=== PATIENT | male | born 1970 | race Caucasian/White ===

== ENCOUNTER → 2022-08-03 13:25 | Outpatient (BNVA) | payer BC, SELFPAY | PROVIDERS: PCP Internal Medicine; Visit Provider Nurse Practitioner Family | DX: Z13.89 Encounter for screening for other disorder (principal) ==

== ENCOUNTER 2024-02-08 08:30 | Outpatient (RCR) | payer BC, SELFPAY ==
[2024-02-07 11:29] VITALS: BMI 27.1
[2024-02-07 11:30] VITALS: BP 125/92; PULSE 80; TEMP 37.2
--- NOTE | 2024-02-07 13:23 | PC.ADMIT ---
Patient is a 53 year old male who was referred to [facility] by his psychiatric prescriber d/t severe depression, anxiety, and OCD. Patient is ruminating and perserverating on different issues related to tinnitus and hearing loss to the point of experiencing Hyperacusis. Patient reports he has been experiencing tinnitus for many years and feels it has worsened since COVID. He talked about taking a Prilosec on Monday and his hearing loss worsened. Patient stated, I think about it how things were already bad and one dose of this stuff within 24 hours it wipes out your hearing. Now what ever hope I had is gone and I go home an lay down I cant sleep because the noise is so loud and from exhaustion I sleep 2-3 hours . Patient reports he has been researching on the internet medications and things that could be contributing to his hearing issues and tinnitus including the Prilosec he took on Monday. Irene started getting a burning pain in my ears went to the ENT and they did not know, teaching by the end of the day hurt. The pain is so bad I have to go on FMLA . Regarding Tinnitus patient stated, I have had it for 10 years until Covid it got worse and worse after the shots and when I had COVID. After being in the hospital since 2001 for a year and a half I was good until COVID I was on Zoloft and my hearing was stable. After I got COVID in 2022 I got more prednisone from my PCP it did seem to help a little bit. In July I used some power tools and went to urgent care because I was afraid it would get worse. I took it again and this time it did not work . In October I took it again within a week or 2 I developed severe Hyperacusis and burning pain in my ear. Trying to prevent losing my hearing . Patient is alert and oriented x4. He was cooperative however focused on his hearing and tinnitus most of the assessment. Frustrated that he is not getting any better. He presented with depressed mood with anxious irritable affect. He was restless at times and pacing at times during the assessment. Unsure if he will come back to the program as he does not seem to think this will help him. Patient stated, I feel like I need an emergency ENT appointment . He stated he is here because his is making him come as she thinks [facility] could help reduce his anxiety to help with his hearing issues as she feels his symptoms are psychiatric. I told Ledy that this is unlivable and I cant live like this . When asked if he was having any SI he stated, I've thought about suicide a lot . Reports passive thoughts like, I think ultimately it will be the end of this (regarding tinnitus and hearing loss) or tinnitus is so bad no one should live like this. Asked if he had any plans to kill himself he stated, I am a coward, I wouldn't know how to do it. He was given a copy of his safety plan if needed. He reports he is not having any difficulty hearing me during the assessment however his tinnitus increases at nighttime. Medications reconciled with patient and patient's pharmacy. He reports he has tried Olanzapine however he did not like it. Pharmacy stated Olanzapine is new and is ready for patient to p/u today.
--- NOTE | 2024-02-07 15:19 | HO.PHP ---
Bill was not able to engage in the 1:00 coping skills group, last group of the day. Pt paced in and out of the room for the entire duration despite prompts to sit or to try to at least timers inspector the room. Pt unable to comply. Pt would go from one group room to the next, bang on the other side of the wall at times. Police Artist had to interrupt group each time to check on pt, Bill stating he was fine each time. Police Artist met with Bill after group to assess his state, pt expressed feeling constant worry over his hearing it's all I can think about . Bill stated he was able to listen to part of the group while going in and out but felt his restless pacing and behavior was a distraction and feels it is limiting his ability to engage in the program. Pt felt unsure if he should continue at [facility], pt repeatedly reported feeling constant worry over his hearing, no reports of feeling unsafe, when asked pt stated it's just my hearing , denied any other distress, would not speak about any other symptoms. When asked about his restless, jumpy legs pt stated it was because he can not stop worrying about his hearing. Pt was unable to sit still to speak with technical publications writer had to get up and move because his legs began to shake vigorously. As pt was leaving for the day, pt was asked about plan to address his distress, pt informed technical publications writer he has an OP doctor. Pt was encouraged to reach out to his outpatient doctor bk if feeling increasingly distressed/anxious over his hearing, until he is able to meet with [facility] provider tomorrow. Pt agreed.
--- NOTE | 2024-02-08 15:02 | HO.PHP ---
Client's case has been opened and reviewed in team.
--- NOTE | 2024-02-08 15:37 | PC.NURSE ---
Patient carries a diagnosis of OCD, he ruminates and perseverates on different issues related to his hearing,he reports he experiences Hyperacusis, a rare disorder of loudness perception. He also reports Tinnitus. He reports experiencing burning pain in his ears which he states persists. The patient reports he has had many medical exams including MRI's with no significant findings. Patient is focused on his hearing and is obsessing about this to the point of having difficulty functioning and inability to work d/t symptoms. 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 He is on a medical leave of absence. Reportedly patient had similar presentation a few years ago and was subsequently hospitalized inpatient behavioral health unit at [facility]. Pt endorses suicidal ideation with thoughts of Can I live like this . Patient presents with irritable mood and affect. He started PHP yesterday. He was noted to be pacing and restless. Difficulty with following group materials as he is focused on his hearing. C/o sleeping 2-3 hours a night since last Monday since he took one Prilosec and was researching on the internet that this could be contributing to his current symptoms. He noticed hearing loss last Monday that he believes will never come back. He reports that he had no issues hearing this marketing writer when completing a nursing assessment yesterday and that it mostly happens at night. Does not believe lack of sleep could be contributing to some of his symptoms. Based on patient symptoms Dr. Moran section'd 12 A patient to [facility] for crisis evaluation. He was escorted to [facility] by [facility] staff Brandy and Hellen along with patient's . Nurse to Nurse done with Zay MILLIGAN in the POD and Care steam conditioner filling Stephanie was notified with above mentioned information. Also told Stephanie and Zay MILLIGAN to review section 12 A write up.
--- NOTE | 2024-02-08 23:49 | HO.PS.ADMBH ---
HPI Date of Service: 02/08/24 Chief Complaint: OCD,RAGHAV Sources of Information: patient interviewed, chart reviewed and crisis/core team assessment reviewed HPI Narrative: Patient is a 53 yo male who has been struggling with mental health issues, which he attributes to chronic ear problems including hearing loss, tinnitis, for which he has found no explanation or treatment despite extensive work-up by countless doctors, several ENTs, many of whom told him they could not find anything wrong with me . He experiences high levels of anxiety all the time on account of his ear problems and feeling hopeless and overwhelmed and suicidal. Was a limited historian on account of disorganized thoughts/behaviors. Agitation waxed and waned, pacing, irritable, perseverating on his ear problems and in particular was really preoccupied with the notion that he one tablet of Prilosec irrecoverably damaged his ear, claiming his cochlear cells and he has permanent hearing loss (although there was no indication during our conversation that he had impaired hearing). He states he is living in agony and that it is impossible for him to live like this anymore. He seemed unable to engage in any productive discussions on perspective or problem-solving. He continued obsess about the irony that this one pill he impulsively took last Monday would have such dire repercussions. My life is over... had I only known taking that Prilosec was going to be the difference between life and ... I chose wrong. I cant undo this . No future-orientation, no protective factors as he believes his family would be better off without him. In fact he has mentioned several times to his thoughts about taking his life and about euthanasia which he says disturbs her . He notes that euthanasia is legal in [place]. He says I dont feel like there's anything wrong with that. I should be able to choose not to live like this. They (doctors) are not me. They don't know how it is to live like this. I'm in agony. All the time. I cant do anything. I cant work. The damage I have done to my and kids... When asked if he has thoughts of harming himself, he says it wouldn't be any worse than how he is doing now, and expresses intense regret about taking the Prilosec. He endorses active SI and without specifying time frame, although indicating could be at any time, and does not report any particularly protective factors.. reporting suicidal thoughts and expresses wish to . He shares plan of by getting hit by train and indicates that he has been familiarizing himself with train schedule which passes by his neighborhood. Says it is more than one time of day the train runs by, I have figured that would be the best way to go, quick and easy . He would not share the times the train passes. Despite numerous times being asked if he had plans to act on this today, he would not respond to the question and kept lamenting that killing yourself and euthanasia is not allowed , arguing that it should be and citing reasons he should be allowed to do so. I used to think sticked around for my kids as a shell of a dad was enough. It isn't . He states he is only taking levothyroxine and sertraline. He stopped taking Zyprexa because it doesn't work and causes more problems with his ears. He felt perhaps the sertraline was starting to work but says because of taking the Prilosec last week I ruined it . He does not believe he is going to ever get better. Nothing is going to work now because the Prilosec killed all the acoustic cells in my ears. It's ototoxic he erratically scrolls through his phone reading random passages from studies he has found which he concludes that the damage is irreversible. My hairing loss is permanent. Nothing can fix this Past Psychiatric History: Multiple [facility] Medical History (Updated 02/08/24 @ 23:58 by Shea Molina MD) Urethral stricture History of concussion Clicking tinnitus of both ears Surgical History (Updated 02/07/24 @ 11:27 by Natalie Ventura RN) Hx of knee surgery Hx of inguinal hernia surgery Diagnostics Vital Signs (24Hr): BMI result Body Mass Index 27.1 Meds/Allergies Meds Home Medications ?Medication ?Instructions ?Recorded ?Confirmed ?Type levothyroxine 75 mcg tablet 75 mcg PO DAILY 02/08/24 02/08/24 History sertraline 25 mg tablet 25 mg PO QAM 02/08/24 02/08/24 History olanzapine 2.5 mg tablet 2.5 mg PO BEDTIME 02/09/24 History risperidone 0.25 mg tablet 0.25 mg PO BID 02/09/24 History Allergies Allergies Allergy/AdvReac Type Severity Reaction Status Date / Time grass pollen Allergy Unknown Unknown Verified 02/08/24 15:41 david Allergy Unknown Unknown Verified 02/08/24 15:41 Peanut Butter Allergy Unknown Unknown Verified 02/08/24 15:41 Seasonal Allergies Allergy Unknown Unknown Verified 02/08/24 15:41 almonds Allergy Unknown Unknown Uncoded 08/03/22 13:43 pineapples Allergy Unknown Unknown Uncoded 08/03/22 13:43 Mental Status Exam Mental Status Exam Narrative: Alert, oriented to self and situation. Agitation, excessive skin picking and gnawing at open wounds on his fingers. Eye contact variable. Mood anxious, depressed, affect anxious, irritable, dysphoric, without notable lability or tearfulness. Speech normal. Thought process was perseverative, at times illogical but coherent. Some thought blocking, likely from intense internal preoccupation focused on somatic concerns, and hyperfixated on a Prilosec tablet he took last Monday which he repeatedly stated he regretted, Feeling demoralized, helpless, and profoundly hopeless, expressing fatalistic outlook and wish to not exist due to ear problems, no future-orientation, expresses active SI, intention, with plan to jump in front of a train. Denies any aggressive ideation or thoughts of harming others. Overvalued ideation without gross paranoia or delusional content elicited. No evidence of psychosis. Insight and judgment - fair but adequate Assessment & Plan Assessment & Plan (1) MDD (major depressive disorder), recurrent episode: Status: Acute Qualifiers: Major depression episode severity: severe Code(s): F33.9 - Major depressive disorder, recurrent, unspecified Assessment and Plan: +/- thought disorder (2) Illness anxiety disorder: Status: Acute Code(s): 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 (3) Other obsessive-compulsive disorder: Status: Acute Code(s): F42.8 - Other obsessive-compulsive disorder (4) Disturbed cognition: Status: Acute Code(s): R41.89 - Other symptoms and signs involving cognitive functions and awareness Plan Patient is a difficult historian, disorganized, at times becomes agitated, pacing around room. He is highly perseverative, illogical and difficult to redirect in conversation. States his mood is in agony and says he is completely hopeless and refuses any prospects that he anything to live for. He explicitely expresses wish to , reports SI, urge, intention, plan to jump in front of a train and though he wouldnt provide details of when he might do this he also was unable/unwilling to contract for safety that he would not act on this today. He has made suicidal statements to family as well. Patient reluctantly agreed to go to ER for Crisis eval for possible IPLOC, section 12a signed and sent over to ED. Patient educated on: diagnosis and medication risk/benefits Informed Consent: does not understand Reason for continued partial hosp. stay Substantial Risk for: harm to self, inability to function, rapid decompensation, med/psych decompensation and other (Warranting higher level of care) Certification I certify that partial hospital treatment is medically necessary due to the symptoms and problems resulting from the patient's mental illness and the failure to treat the patient at the partial hospital level of care would likely result in the patient requiring inpatient psychiatric care which could not be prevented at a less intensive level of care. Time Spent With Patient Time: Total time managing care of this patient today __90__ minutes.
== END 2024-02-08 23:59 | disposition home or self-care (01) ==
LOC: HO.PHPA 08:30
PROVIDERS: Visit Provider Psychiatry & Neurology Psychiatry
DX: F33.9 Major depressive disorder, recurrent, unspecified (principal); F45.21 Hypochondriasis; F42.8 Other obsessive-compulsive disorder; R41.89 Other symptoms and signs involving cognitive functions and awareness
CPT/HCPCS: 90791; 90853

== ENCOUNTER → 2024-02-08 08:30 | Outpatient (BNV) | payer BC, SELFPAY | PROVIDERS: Visit Provider Psychiatry & Neurology Psychiatry | DX: F33.9 Major depressive disorder, recurrent, unspecified (principal); F45.21 Hypochondriasis; F42.8 Other obsessive-compulsive disorder; R41.89 Other symptoms and signs involving cognitive functions and awareness | CPT/HCPCS: 90792 ==

== ENCOUNTER 2024-02-08 15:29 | Inpatient (IN) | payer BC, SELFPAY ==
--- NOTE | 2024-02-08 | ECG_ITS ---
Test Reason : med clear Blood Pressure : / mmHG Vent. Rate : 074 BPM Atrial Rate : 074 BPM P-R Int : 138 ms QRS Dur : 082 ms QT Int : 382 ms P-R-T Axes : 038 006 048 degrees QTc Int : 424 ms Normal sinus rhythm Normal ECG No previous ECGs available Referred By: Sandro Downey Electronically Signed By:EMMA OLIVEIRA
[2024-02-08 15:36] VITALS: BP 144/100; PULSE 81; RESP 16; TEMP 36.6; O2SAT 100; BMI 26.6
--- NOTE | 2024-02-08 15:36 | ED_ITS ---
HPI - Psych General Chief Complaint: Psychiatric Symptoms Stated Complaint: Crisis Time Seen by Provider: 02/08/24 16:29 Source: patient Mode of arrival: ambulatory Limitations: no limitations History of Present Illness ED Provider: Vicky NORTON HPI Narrative: 53 yold male with pmh of tinnitus with history of obsessive compulsive disorder and some tinnitus presents to ED for suicidal ideation due to tendinitis. Patient states too much ringing in his ear he was still in his life. Patient has plans but would not state the plan. Patient is sent here by section 12 from [facility] for evaluation. Patient states no SI stating in the past Related Data Home Medications ?Medication ?Instructions ?Recorded ?Confirmed levothyroxine 75 mcg tablet 75 mcg PO DAILY 02/08/24 02/08/24 sertraline 25 mg tablet 25 mg PO QAM 02/08/24 02/08/24 Allergies Allergy/AdvReac Type Severity Reaction Status Date / Time grass pollen Allergy Unknown Unknown Verified 02/08/24 15:41 david Allergy Unknown Unknown Verified 02/08/24 15:41 Peanut Butter Allergy Unknown Unknown Verified 02/08/24 15:41 Seasonal Allergies Allergy Unknown Unknown Verified 02/08/24 15:41 almonds Allergy Unknown Unknown Uncoded 08/03/22 13:43 pineapples Allergy Unknown Unknown Uncoded 08/03/22 13:43 Review of Systems 2 Review of Systems: SI Yes all other systems are reviewed and are negative PMFSH Past Medical History Medical History (Updated 02/08/24 @ 23:58 by Shea Molina MD) Urethral stricture History of concussion Clicking tinnitus of both ears Surgical History (Updated 02/07/24 @ 11:27 by Natalie Ventura RN) Hx of knee surgery Hx of inguinal hernia surgery Social History Social History (Updated 08/03/22 @ 13:47 by Nohelia Mendez CMA) Household Members: Spouse and Children Alcohol intake: current Alcohol intake frequency: a few times a month Patient Tobacco Use Status: Never used Tobacco Advance Directives: No Advance Directives Information Provided: No Do you have a plan to hurt others: No Plan Physical Exam 2 Vital Signs: Vital Signs: Last Vital Signs Temp 98.7 F 02/09/24 06:00 Pulse 100 02/09/24 06:00 Resp 18 02/09/24 06:00 BP 152/98 H 02/09/24 06:00 Pulse Ox 99 02/09/24 06:00 O2 Del Method Room Air 02/09/24 06:00 BMI result Body Mass Index 26.6 Const: General: cooperative, healthy appearing, comfortable, no acute distress, well developed, alert and awake Orientation/consciousness: patient oriented x3 HEENT: Head: Yes normal to inspection, Yes No palpable skull fracture present, Yes normocephalic, Yes atraumatic and Yes abrasion Ears: hearing grossly normal bilaterally, external ears normal, TM's normal bilaterally, TM normal on the right, TM normal on the left, EAC's normal, mastoids normal and no periauricular adenopathy Throat: Yes posterior oropharynx normal, Yes tonsils normal and Yes uvula midline Eyes: General: appearance normal, both eyes and all related structures Neck: Neck: Yes normal visual inspection, Yes full ROM, Yes no lymphadenopathy, Yes no meningeal signs, Yes trachea midline, Yes supple, No anterior neck swelling and No tender Chest: Chest palpation & inspection: normal inspection of the chest and normal palpation of entire chest wall Resp: Effort & Inspection: normal respiratory effort and able to speak in complete sentences Auscultation: clear to auscultation bilaterally Cardio: Jugular venous distension: no JVD Heart sounds: S1 normal heart sound present and S2 normal heart sound present GI: Inspection: Yes normal to inspection Palpation (GI): Soft to palpation, not firm, nontender, no guarding and not rigid : General: No CVA tenderness and Yes no CVA tenderness Back/Spine/Pelvis: Back: no CVA tenderness, No CVA tenderness and No back tenderness Skin: General skin exam: no rashes or lesions noted, elasticity normal and turgor normal Neuro: General: patient oriented x3, gait normal, tone normal, moves all extremities, no meningeal signs, no focal motor deficits, CN's II-XI intact bilaterally and normal sensation to monofilament Extrem: General: Yes normal to inspection, Yes full ROM and Yes capillary refill normal Psych: Appearance: grossly normal, well kempt and not disheveled Course Course Course Narrative: This is a Rapid Medical Examination (RME) performed by Jing aMi PA-C in triage. Full HPI, ROS, assessment and treatment plan per primary provider in the Main ED. 53 yo male with history of OCD, anxiety, history of high frequency hearing loss and tinnitus chronically who presents to the ER from partial hospitalization program for a crisis evaluation. He reports an episode of worsening hearing loss and tinnitus after taking 1 priolsec over the weekend. Described as high pitch and involving both ears. Seen by ENT in the past. He states he can't live like this. If the hearing issues were not present he would not be suicidal or in crisis. Plan: medically clear then CARE team evaluation Reevaluation(s) Reevaluation #1: Physician observation continued. VS stable, no acute events overnight, inpatient bed search [place] 02/09/24 Medications Administered Generic Name Dose Route Start Last Admin Trade Name Freq PRN Reason Stop Dose Admin Levothyroxine Sodium 75 mcg 02/09/24 06:00 02/09/24 06:00 Levothyroxine Sodium 75 Mcg Tablet PO 75 mcg DAILY@0600 ROSY Administration Sertraline HCl 25 mg 02/08/24 20:45 02/08/24 21:58 Sertraline Hcl 25 Mg Tablet PO Not Given DAILY ROSY Medical Decision Making Medical Decision Making MDM Narrative: 53-year-old male with SI statements. Patient states suicide due to tinnitus. Patient has plan but will not specify. Labs ordered care team consult pending. 8:27pm; patient will be inpatient bed search as per care team loss control consultant. Bilateral ear exam normal Differential Diagnosis Differential Diagnoses: The differential diagnosis associated with the presentation includes (SI depression) Admission/Observation Consideration of admission/observation: Escalation of care including admission/observation considered Consult Healthcare Provider Management of the patient was discussed with: Sales Ambassador (Care team) Lab Data [facility] Lab Attestation statement: I reviewed the patient's lab results. 02/08/24 16:03 02/08/24 16:03 Labs: Lab Results 02/08/24 Range/Units 16:03 WBC 8.6 (4.8-10.8) X10*3/uL RBC 4.90 (4.60-5.80) X10*6/uL Hgb 15.9 (14.0-18.0) g/dl Hct 44.1 (42.0-52.0) % MCV 90.0 (80.0-98.0) fL MCH 32.4 (27.0-33.0) pg MCHC 36.1 H (31.0-36.0) g/dl RDW 11.6 (11.0-16.0) % Plt Count 335 (160-400) X10*3/uL MPV 10.1 (9.4-12.4) fL Immature Gran % (Auto) 0.1 (0.0-0.4) % Neut % (Auto) 70.5 (45-73) % Lymph % (Auto) 20.9 (20-40) % [place] % (Auto) 5.5 (2-11) % Eos % (Auto) 2.3 (0-4) % Baso % (Auto) 0.7 (0-2) % Lymph # (Auto) 1.8 (1.2-4.9) X10*3/uL [place] # (Auto) 0.5 (0.1-1.2) X10*3/uL Eos # (Auto) 0.2 (0.0-0.4) X10*3/uL Baso # (Auto) 0.1 (0.0-0.2) X10*3/uL Abs Immat Gran (auto) 0.01 (0.00-0.03) X10*3/uL Absolute Neuts (auto) 6.0 (2.0-8.3) x10*3/uL Absolute Nucleated RBC 0.000 (0.0-0.012) X10*3/uL Nucleated RBC % (auto) 0.0 (0.0-0.2) /100WBC Sodium 139 (135-145) mmol/L Potassium 4.2 (3.3-5.1) mmol/L Chloride 103 (96-108) mmol/L Carbon Dioxide 28 (22-29) mmol/L Anion Gap 12 (12-20) BUN 6 L (9-16) mg/dL Creatinine 0.89 (0.5-1.4) mg/dL Estim Creat Clear Calc 91.7 Estimated GFR > 60 Random Glucose 98 (60-115) mg/dL Calcium 9.9 (8.4-10.2) mg/dL Magnesium 2.2 (1.6-2.6) mg/dL Total Bilirubin 0.5 (0.0-1.0) mg/dL Direct Bilirubin 0.2 (0.0-0.5) mg/dL AST 33 (5-37) U/L ALT 39 (0-40) U/L Alkaline Phosphatase 118 H (39-117) U/L Total Protein 7.5 (6.5-8.0) g/dL Albumin 4.5 (3.5-5.0) g/dL TSH 2.91 (0.32-4.0) uIU/mL Urine Color Yellow Urine Appearance Clear Urine pH 7.5 (5.0-9.0) Ur Specific [place] <= 1.005 (1.005-1.025) Urine Protein Negative (Neg-Trace) mg/dL Urine Glucose (UA) Negative (Negative) mg/dL Urine Ketones Negative (Negative) mg/dL Urine Blood Negative (Negative) Urine Nitrite Negative (Negative) Ur Leukocyte Esterase Negative (Negative) Urine Opiates Screen Not Detected (Not Detect) Ur Buprenorphine Scrn Not Detected (Not Detect) ng/mL Ur Oxycodone Screen Not Detected (Not Detect) ng/mL Urine Methadone Screen Not Detected (Not Detect) ng/mL Urine Fentanyl Screen Not Detected (Not Detect) Ur Barbiturates Screen Not Detected (Not Detect) Ur Phencyclidine Scrn Not Detected (Not Detect) Ur Amphetamines Screen Not Detected (Not Detect) U Benzodiazepines Scrn Not Detected (Not Detect) Urine Cocaine Screen Not Detected (Not Detect) U Marijuana (THC) Screen Not Detected (Not Detect) Ethyl Alcohol < 10 mg/dL Independent Historian Clinical information obtained from an independent historian. History obtained from or confirmed by: EMS and Other (Patient) External Record Review External record reviewed: Other (Prior visits) Discharge Plan Discharge Clinical Impression: Depression Patient Disposition: Still a Patient Prescriptions: No Action levothyroxine 75 mcg tablet 75 mcg PO DAILY sertraline 25 mg tablet 25 mg PO QAM Interventions: Elkins-Suicide Risk Severity Scale Last Done: 02/08/24 16:20 Print Language: Puerto Rican
--- NOTE | 2024-02-08 16:08 | MHC.CARE ---
Shannan soriano/ BREEZY calls in expect for this patient, recently admitted to the [facility] PHP and struggling. This is a 53 year old white male, employed at [employer], currently on medical leave. He was referred to the PHP by her psychiatric provider due to depression/ OCD and is described with rumination, perseveration about his hearing. He is reported to be obsessed with his hearing and he has a dx of tinnitus and reports experiencing burning in his ear. 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 He has been irritable pacing and restless, only sleeping 2 hours a night or so since Monday. He makes SI statements, cannot live like this and inquired into euthanasia. Struggling to focus. Unable to tolerate groups in [facility], leaving the room.
[2024-02-08 16:13] LABS: MANUAL DIFF FLAG NO
[2024-02-08 16:16] LABS: Appearance Urine Clear; Color Urine Yellow; Glucose Urine UA Negative (Negative); Leukocyte Esterase Urine Negative (Negative); Nitrite Urine Negative (Negative); PH 7.5 (5.0-9.0); Specific Gravity - Urine <= 1.005 (1.005-1.025); Urine Blood Negative (Negative); Urine Ketones Negative (Negative); Urine Protein Negative (Neg-Trace)
[2024-02-08 16:18] LABS: Basophils Absolute Auto 0.1 X10*3/uL (0.0-0.2); Basophils Percent Auto 0.7 % (0-2); Eosinophils Absolute Auto 0.2 X10*3/uL (0.0-0.4); Eosinophils Percent Auto 2.3 % (0-4); Hematocrit 44.1 % (42.0-52.0); Hemoglobin 15.9 g/dl (14.0-18.0); Imm Gran Abs Auto 0.01 X10*3/uL (0.00-0.03); Imm Gran Pct Auto 0.1 % (0.0-0.4); Lymphocytes Absolute Auto 1.8 X10*3/uL (1.2-4.9); Lymphocytes Percent Auto 20.9 % (20-40); Mean Corpuscular HGB Conc 36.1 g/dl (31.0-36.0); Mean Corpuscular Hemoglobin 32.4 pg (27.0-33.0); Mean Platelet Volume 10.1 fL (9.4-12.4); Monocytes Absolute Auto 0.5 X10*3/uL (0.1-1.2); Monocytes Percent Auto 5.5 % (2-11); Neutrophils Percent Auto 70.5 % (45-73); Platelet Count 335 X10*3/uL (160-400); Red Cell Distribution Width 11.6 % (11.0-16.0); White Blood Count 8.6 X10*3/uL (4.8-10.8)
[2024-02-08 16:19] VITALS: BP 144/100; PULSE 81; RESP 16; TEMP 36.6; O2SAT 100
[2024-02-08 16:24] LABS: Amphetamine Screen Urine Not Detected (Not Detect); Barbiturates, Urine Not Detected (Not Detect); Benzodiazepines Screen Urine Not Detected (Not Detect); Buprenorphine Scr Not Detected (Not Detect); Cannabinoid Screen Urine Not Detected (Not Detect); Cocaine Screen Urine Not Detected (Not Detect); Fentanyl, urine Not Detected (Not Detect); Methadone Screen, Urine Not Detected (Not Detect); Opiate Screen Urine Not Detected (Not Detect); Oxycodone Screen Urine Not Detected (Not Detect); Phencyclidine Screen Urine Not Detected (Not Detect)
[2024-02-08 16:37] LABS: Alanine Aminotransferase 39 U/L (0-40); Albumin Level 4.5 g/dL (3.5-5.0); Alkaline Phosphatase 118 U/L (39-117); Anion Gap 12 (12-20); Aspartate Amino Transferase 33 U/L (5-37); Bilirubin Direct 0.2 mg/dL (0.0-0.5); Bilirubin Total 0.5 mg/dL (0.0-1.0); Blood Urea Nitrogen 6 mg/dL (9-16); Calcium 9.9 mg/dL (8.4-10.2); Carbon Dioxide 28 mmol/L (22-29); Chloride 103 mmol/L (96-108); Creatinine Clr Calc Pharmacy 91.7; Estimated Glomerular Filt Rate > 60; Ethanol < 10 mg/dL; Glucose Random 98 mg/dL (60-115); Magnesium 2.2 mg/dL (1.6-2.6); Potassium 4.2 mmol/L (3.3-5.1); Sodium 139 mmol/L (135-145); Total Protein 7.5 g/dL (6.5-8.0)
[2024-02-08 16:48] LABS: TSH reflex Free T4 2.91 uIU/mL (0.32-4.0)
--- NOTE | 2024-02-08 19:29 | PC.NURSE ---
patient appears to remain at rest present at bedside. appears in no distress presently.
--- NOTE | 2024-02-08 23:12 | MHC.CARE ---
Pt was evaluated by the CARE Team and is an inpatient adult bedsearch. Pt is on a section 12A for safety. Pt gave verbal permission to notify his when he has secured a bed.
--- NOTE | 2024-02-09 03:10 | PC.NURSE ---
this rn assumed care of pt, pt ambulatory to bathroom with steady gait, no acute distress noted. plan of care continues.
[2024-02-09 06:00] VITALS: BP 152/98; PULSE 100; RESP 18; TEMP 37.1; O2SAT 99
[2024-02-09] MEDS: Levothyroxine Sodium 75 MCG TABLET PO (06:00)
--- NOTE | 2024-02-09 06:02 | PC.NURSE ---
pt medicated per jun, tolerated well with water, provider aware of bp.
--- NOTE | 2024-02-09 07:02 | PC.NURSE ---
Assumed care of patient at 0645, patient appears to be sleeping, respirations even and unlabored. Continue plan of care for inpatient bedsearch
[2024-02-09] MEDS: Sertraline HCL 25 MG TABLET PO (08:03)
--- NOTE | 2024-02-09 09:14 | PHA.MEDREC ---
Addendum entered by Lindy De Leon RPh 02/09/24 09:21: Reviewed by [facility] Original Note: Pharmacy Consult ? Medication Reconciliation Pharmacy has reviewed the medication reconciliation. Spoke to patients Ledy to confirm med list. states patient is only taking Sertraline 25 mg daily, last dose was 02/08/24 and Levothyroxine 75 mcg daily last dose unknown thinks patient hasn't been taking. stated Patient stopped taking Olanzapine 2.5 mg and Risperidone 0.25 mg.
[2024-02-09] MEDS: LORazepam 1 MG TABLET PO (10:59)
[2024-02-09 13:30] VITALS: BMI 26.8
--- NOTE | 2024-02-09 14:57 | P.HPPS_ITS ---
HPI Date of Service: 02/09/24 Chief Complaint: SI HPI Narrative: per CARE team srinivasal, pt was walked over from [facility] due to SI, hopelessness, depression due to tinnitus. OCD Dx, historically. pt had been in [facility] from 02/05 being referred by outpt psych MD for inadequately managed depression, anxiety, OCD Sx. c/o tinnitus, hyperacusis (noxacusis). pt reportedly stopped taking zoloft in 2021. per collateral from pt's , when pt was taking the medication he was able to manage his symptoms and was more engaged with life. c/o sleeping only 2-3 hours per night since 02/02/2024, when he experienced a sharp exacerbation in tinnitus Sx (which he attributes to having taken one prilosec dose). on interview with MD, pt reports long h/o OCD, more recently with hearing loss (per his report, unclear if he has had this established via audiology) and even more recently with c/o tinnitus. states mid 2021 he stopped taking the zoloft he had been on for years because he was feeling better. in the period 2021 through october 2023, he reports seeking out prednisone courses in the belief they will address his tinnitus. he states, trying to help my hearing with steroids, but i'm delusional, i end up hurting myself. he describes himself as an abuser of steroids, and despite feeling it has largely been counter-productive for him, yet he feels compelled to keep seeking them out. reports his outpt psych MD recently prescribed him zyprexa and risperidone, which he states he had bad experiences with. he believes zyprexa caused him orthostatic hypotension, while risperidone briefly exacerbated his tinnitus. pt c/o having a very difficult time sleeping due to tinnitus. MD suggests trial of seroquel 200-300 mg at HS for perseverative and overvalued thoughts as well as insomnia; pt is skeptical. MD also agrees to add ativan 2 mg at HS to help with sleep. discussion also had re increasing zoloft back over 100 mg daily, where he had successfully been for years, versus initiating a trial of clomipramine. pt agreed to increase zoloft to 50 mg daily. generally, pt is bound by his anxiety that these various medications will worsen his hearing loss or tinnitus and so is extremely reluctant to take them. he is already stating he plans to kill himself otherwise. he is not entirely open to the logic that he then has nothing to lose: if he is going to kill himself due to his current condition, even if he takes medications and it makes his condition worse, he was going to kill himself when he was feeling better than that anyway, so why wouldn't he give them a try? ECT was also raised as an option. Past Psychiatric History: hosps: reports one prior, [facility] in 2021, after accidental steroid overdose SA: denies SIB: denies HIB: denies outpt: OCD. sees prescriber via telehealth. also has telehealth therapy 1-2x weekly. h/o zoloft up to 175 mg daily at one point, but over 100 mg daily for years. 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 . lives with , son (13), and daughter (18) in [place], [place]. on medical leave from his work. Substance History: tobacco - none alcohol - none since october identifies himself as a prednisone abuser. reports that between october 2021 and december 2023 he sought out high dose prednisone therapy on 8 separate occasions. denies other substance use. Trauma History: denies Diagnostics Vital Signs (24Hr): Vital Signs - 24 hr 02/08/24 15:36 02/08/24 16:19 02/09/24 06:00 Temperature 97.8 F 97.8 F 98.7 F Pulse Rate 81 81 100 Respiratory Rate 16 16 18 Blood Pressure 144/100 H 144/100 H 152/98 H Pulse Oximetry 100 100 99 Oxygen Delivery Method Room Air Room Air Room Air BMI result Body Mass Index 26.6 Labs 02/08/24 16:03 02/08/24 16:03 Labs: Laboratory Results - last 48 hr 02/08/24 16:03 WBC 8.6 RBC 4.90 Hgb 15.9 Hct 44.1 MCV 90.0 MCH 32.4 MCHC 36.1 H RDW 11.6 Plt Count 335 MPV 10.1 Immature Gran % (Auto) 0.1 Neut % (Auto) 70.5 Lymph % (Auto) 20.9 [place] % (Auto) 5.5 Eos % (Auto) 2.3 Baso % (Auto) 0.7 Lymph # (Auto) 1.8 [place] # (Auto) 0.5 Eos # (Auto) 0.2 Baso # (Auto) 0.1 Abs Immat Gran (auto) 0.01 Absolute Neuts (auto) 6.0 Absolute Nucleated RBC 0.000 Nucleated RBC % (auto) 0.0 Sodium 139 Potassium 4.2 Chloride 103 Carbon Dioxide 28 Anion Gap 12 BUN 6 L Creatinine 0.89 Estim Creat Clear Calc 91.7 Estimated GFR > 60 Random Glucose 98 Calcium 9.9 Magnesium 2.2 Total Bilirubin 0.5 Direct Bilirubin 0.2 AST 33 ALT 39 Alkaline Phosphatase 118 H Total Protein 7.5 Albumin 4.5 TSH 2.91 Urine Color Yellow Urine Appearance Clear Urine pH 7.5 Ur Specific [place] <= 1.005 Urine Protein Negative Urine Glucose (UA) Negative Urine Ketones Negative Urine Blood Negative Urine Nitrite Negative Ur Leukocyte Esterase Negative Urine Opiates Screen Not Detected Ur Buprenorphine Scrn Not Detected Ur Oxycodone Screen Not Detected Urine Methadone Screen Not Detected Urine Fentanyl Screen Not Detected Ur Barbiturates Screen Not Detected Ur Phencyclidine Scrn Not Detected Ur Amphetamines Screen Not Detected U Benzodiazepines Scrn Not Detected Urine Cocaine Screen Not Detected U Marijuana (THC) Screen Not Detected Ethyl Alcohol < 10 Meds/Allergies Meds Home Medications ?Medication ?Instructions ?Recorded ?Confirmed ?Type levothyroxine 75 mcg tablet 75 mcg PO DAILY@0600 02/08/24 02/09/24 History sertraline 25 mg tablet 25 mg PO DAILY 02/08/24 02/09/24 History Allergies Allergies Allergy/AdvReac Type Severity Reaction Status Date / Time grass pollen Allergy Unknown Unknown Verified 02/08/24 15:41 david Allergy Unknown Unknown Verified 02/08/24 15:41 Peanut Butter Allergy Unknown Unknown Verified 02/08/24 15:41 Seasonal Allergies Allergy Unknown Unknown Verified 02/08/24 15:41 almonds Allergy Unknown Unknown Uncoded 08/03/22 13:43 pineapples Allergy Unknown Unknown Uncoded 08/03/22 13:43 Mental Status Exam Mental Status Exam Narrative: adequately dressed and groomed. cooperative. no PMA/PMR. speech nml amount, rate, loudness. periods of increased HELENA. thoughts linear and variably logical. overvalued ideas bordering on delusional. affect constricted, hyper- intense, non-labile. mood defeated. +SI. no HI/AVH. Assessment & Plan Assessment & Plan (1) OCD (obsessive compulsive disorder): Status: Acute Code(s): F42.9 - Obsessive-compulsive disorder, unspecified (2) Tinnitus: Status: Acute Code(s): H93.19 - Tinnitus, unspecified ear (3) MDD (major depressive disorder), recurrent episode: Status: Acute Qualifiers: Major depression episode severity: severe Code(s): F33.9 - Major depressive disorder, recurrent, unspecified Plan offer seroquel 200 mg QHS for sleep/overvalued ideas, with an additional 100 mg available PRN. offer ativan 2 mg QHS for sleep. increase zoloft to 50 mg daily. otherwise DC zoloft and initiate clomipramine trial. neuro consult for opinion re type, mgmt of tinnitus. Patient educated on: diagnosis, medication risk/benefits, substance abuse and ECT Reason for continued inpatient stay Substantial Risk for: harm to self Statement Statement: I have reviewed the history and physical and performed a pertinent examination on my patient. No changes have occurred unless specified. If the History and Physical was not performed prior to admission, the Hospitalist's service will be consulted for completing the admission physical. Time Spent With Patient Time: Total time managing care of this patient today __90__ minutes.
--- NOTE | 2024-02-09 18:26 | PC.ADMIT ---
Bill is a 53 y/o male that was admitted to [facility] at 1321 from Pod on Legal status for treatment of MDD, RAGHAV and OCD. Pt has tinnitus in both ears and hyperacusis. Pt presented to the ED after being section 12 by [facility] r/t SI, hopelessness, and decrease in mood. Pt reported ?I don't want to live anymore. I have lived 52 good years. I have seen my kids grow into teenagers and I feel like that is enough for me. I don?t think I will get better, I can?t live with this in my head constantly, it's unbearable. I ready to . There are people with chronic illness who are able to use medical euthanasia I don?t get why I can?t?.? Pt has ongoing SI and hopelessness that has increased in the last week with no actual plan or intent. Per in 2021 pt overdosed on prednisone.? Pt is A&O x3. Mood is depressed and hopeless. Affect is depressed. Pt was irritable and defensive at times. Pt denied hx of trauma.? Pt reported a 20lb weight loss in the last month. Pt has reported poor sleep r/t the constant noise from the tinnitus, reported 2-3 hours a night for the last week.. Pt has poor focus and concentration. Pt uses contacts. Pt is and lives with a partner and two children. 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 Pt has an hx of a concussion in March 2022. Pt has a hx of inguinal hernia and R knee surgery, urethral stricture. Tox Screen was negative. Pt denied any substance use. Pt denied tobacco use. Pt has an allergy to grass pollen, david, peanut butter, pineapples, almonds and seasonal allergies. Pt was compliant with skin check. Pt was placed on 15 checks for safety.
[2024-02-09 18:44] VITALS: BP 130/89; PULSE 95; RESP 16; TEMP 36.6; O2SAT 96
[2024-02-09 20:00] VITALS: BP 130/84; PULSE 90; RESP 14; TEMP 36.6
[2024-02-09] MEDS: LORazepam 1 MG TABLET 2 MG PO (20:42)
[2024-02-10] MEDS: Levothyroxine Sodium 75 MCG TABLET PO (06:31)
[2024-02-10 08:04] VITALS: BP 129/72; PULSE 71; RESP 16; TEMP 36.8; O2SAT 97
[2024-02-10 08:39] LABS: Estimated Average Glucose 105 mg/dL; Hemoglobin A1C 133.8481 umol/L; Hemoglobin A1c % 5.3 % (<6.0); Total Hemoglobin (HGBA1C) 3858.8193 umol/L
--- NOTE | 2024-02-10 08:52 | HO.PSYCHPN ---
Subjective Subjective Date of Service: 02/10/24 Reason For Visit: SI Subjective Notes: Conditional Voluntary Interim History: Pt seen, reviewed with team who report pt is accepting medicines, but with hesitation and some evidence of paranoia. He is focused on SE. Team reports pt slept eight hours after taking Ativan. Pt awake and in bed when seen. He presents with depressed mood, flat affect, mild irritability and perseverative sx. He declines to discuss current sx or concerns, stating I guess I am just stuck here . Encouraged attempts to engage in milieu. Medication Compliance: Yes Side effects from medications: No Review of Systems Acute medical concerns: No Review of Systems Review of Systems Yes Unobtainable due to mental status Mental Status Exam Mental Status Exam Patient Appearance: Fatigued Patient Orientation: Person, Place, Time and Situation Level of Consciousness: Alert Patient Behavior: Guarded and Talkative Mood Description: Depressed Affect Description: Flat Patient Cognition Impaired: No Ability to Follow Directions: Good Speech Pattern: Spontaneous Speech and Soft-Spoken Hallucinations: None Delusions: Paranoid Ideation (team is seeing this when medicines are presented) Thought Process: Distracted and Rumination Thought Content: positive for Perseveration and positive for Suicidal Ideation Depressive Symptoms: Increased Irritability and Hopelessness Judgement: Poor Diagnostics Vital Signs (24Hr): Vital Signs - 24 hr 02/09/24 18:44 02/09/24 20:00 02/10/24 08:04 Temperature 97.8 F 97.8 F 98.2 F Pulse Rate 95 90 71 Respiratory Rate 16 14 16 Blood Pressure 130/89 130/84 129/72 Pulse Oximetry 96 97 Oxygen Delivery Method Room Air Room Air Room Air BMI result Body Mass Index 26.8 Labs 02/08/24 16:03 02/08/24 16:03 Labs: Laboratory Results - last 48 hr 02/08/24 02/10/24 16:03 07:56 WBC 8.6 RBC 4.90 Hgb 15.9 Hct 44.1 MCV 90.0 MCH 32.4 MCHC 36.1 H RDW 11.6 Plt Count 335 MPV 10.1 Immature Gran % (Auto) 0.1 Neut % (Auto) 70.5 Lymph % (Auto) 20.9 [place] % (Auto) 5.5 Eos % (Auto) 2.3 Baso % (Auto) 0.7 Lymph # (Auto) 1.8 [place] # (Auto) 0.5 Eos # (Auto) 0.2 Baso # (Auto) 0.1 Abs Immat Gran (auto) 0.01 Absolute Neuts (auto) 6.0 Absolute Nucleated RBC 0.000 Nucleated RBC % (auto) 0.0 Sodium 139 Potassium 4.2 Chloride 103 Carbon Dioxide 28 Anion Gap 12 BUN 6 L Creatinine 0.89 Estim Creat Clear Calc 91.7 Estimated GFR > 60 Random Glucose 98 Estimat Average Glucose 105 Hemoglobin A1c % 5.3 Calcium 9.9 Magnesium 2.2 Total Bilirubin 0.5 Direct Bilirubin 0.2 AST 33 ALT 39 Alkaline Phosphatase 118 H Total Protein 7.5 Albumin 4.5 TSH 2.91 Urine Color Yellow Urine Appearance Clear Urine pH 7.5 Ur Specific [place] <= 1.005 Urine Protein Negative Urine Glucose (UA) Negative Urine Ketones Negative Urine Blood Negative Urine Nitrite Negative Ur Leukocyte Esterase Negative Urine Opiates Screen Not Detected Ur Buprenorphine Scrn Not Detected Ur Oxycodone Screen Not Detected Urine Methadone Screen Not Detected Urine Fentanyl Screen Not Detected Ur Barbiturates Screen Not Detected Ur Phencyclidine Scrn Not Detected Ur Amphetamines Screen Not Detected U Benzodiazepines Scrn Not Detected Urine Cocaine Screen Not Detected U Marijuana (THC) Screen Not Detected Ethyl Alcohol < 10 Medications Medications Current Medications Acetaminophen (Acetaminophen 325 Mg Tablet) 650 mg PO Q6H PRN PRN Reason: Headache/Pain Mild Scale (1-3) Al Hydroxide/Mg Hydroxide (Magnesium Hydrox/Alum Hydrox 30 Ml Oral.Susp) 30 ml PO Q6H PRN PRN Reason: Heartburn/Nausea Hydroxyzine HCl (Hydroxyzine Hcl 25 Mg Tablet) 25 mg PO Q6H PRN PRN Reason: Anxiety Levothyroxine Sodium (Levothyroxine Sodium 75 Mcg Tablet) 75 mcg PO DAILY@0600 [facility] Last Admin: 02/10/24 06:31 Dose: 75 mcg Lorazepam (Lorazepam 1 Mg Tablet) 2 mg PO BEDTIME [facility] Last Admin: 02/09/24 20:42 Dose: 2 mg Lorazepam (Lorazepam 0.5 Mg Tablet) 0.5 mg PO Q4H PRN PRN Reason: Anxiety Magnesium Hydroxide (Milk Of Magnesia 30 Ml Oral.Susp) 30 ml PO DAILY PRN PRN Reason: Constipation Quetiapine Fumarate (Quetiapine Fumarate 200 Mg Tablet) 200 mg PO BEDTIME [facility] Last Admin: 02/09/24 21:40 Dose: Not Given Quetiapine Fumarate (Quetiapine Fumarate 100 Mg Tablet) 100 mg PO BEDTIME PRN PRN Reason: insomnia Sertraline HCl (Sertraline Hcl 50 Mg Tablet) 50 mg PO DAILY [facility] Trazodone HCl (Trazodone Hcl 50 Mg Tablet) 50 mg PO BEDTIME MRX1 PRN PRN Reason: Insomnia Allergies Allergies Allergy/AdvReac Type Severity Reaction Status Date / Time grass pollen Allergy Unknown Unknown Verified 02/08/24 15:41 david Allergy Unknown Unknown Verified 02/08/24 15:41 Peanut Butter Allergy Unknown Unknown Verified 02/08/24 15:41 Seasonal Allergies Allergy Unknown Unknown Verified 02/08/24 15:41 almonds Allergy Unknown Unknown Uncoded 08/03/22 13:43 pineapples Allergy Unknown Unknown Uncoded 08/03/22 13:43 Assessment & Plan Assessment & Plan (1) OCD (obsessive compulsive disorder): Status: Acute Code(s): F42.9 - Obsessive-compulsive disorder, unspecified (2) Tinnitus: Status: Acute Code(s): H93.19 - Tinnitus, unspecified ear (3) MDD (major depressive disorder), recurrent episode: Qualifiers: Major depression episode severity: severe Status: Acute Code(s): F33.9 - Major depressive disorder, recurrent, unspecified Plan offer seroquel 200 mg QHS for sleep/overvalued ideas, with an additional 100 mg available PRN. offer ativan 2 mg QHS for sleep. increase zoloft to 50 mg daily. otherwise DC zoloft and initiate clomipramine trial. neuro consult for opinion re type, mgmt of tinnitus. 02/10/24: Continue tx plan Reason for continued inpatient stay Substantial Risk for: rapid decompensation Time Spent With Patient Time: Total time managing care of this patient today ____ minutes.
[2024-02-10 08:53] LABS: Cholesterol 191 mg/dL (<200); HDL Cholesterol 41 mg/dL (>40); LDL Cholesterol Calculated 133 mg/dL (<100); Triglycerides 89 mg/dL (<150)
[2024-02-10 09:05] LABS: Free T4 (Free Thyroxine) 1.09 ng/dL (0.71-1.85)
[2024-02-10] MEDS: Sertraline HCL 50 MG TABLET PO (09:06)
[2024-02-10 09:17] LABS: Folate 14.1 ng/mL (> or = 4.0); Vitamin B12 640 pg/mL (200-900)
[2024-02-10 20:10] VITALS: BP 136/93; PULSE 70; RESP 16; TEMP 36.6; O2SAT 98
[2024-02-10] MEDS: LORazepam 1 MG TABLET 2 MG PO (21:20)
[2024-02-11] MEDS: Levothyroxine Sodium 75 MCG TABLET PO (07:15)
[2024-02-11 08:18] VITALS: BP 127/87; PULSE 69; RESP 16; TEMP 36.7; O2SAT 98
[2024-02-11] MEDS: Sertraline HCL 50 MG TABLET PO (09:06)
--- NOTE | 2024-02-11 09:10 | HO.PSYCHPN ---
Subjective Subjective Date of Service: 02/11/24 Reason For Visit: SI Subjective Notes: Conditional Voluntary Interim History: Met with pt, reviewed with team. Refused Seroquel. Slept for nine hours. Reports after he shows tw pictures of his daughter who just went to college, his son, his and dog that he feels he is better off , I want to jump . Believes that by taking a prilosec he has lost his hearing. Seen by neurology, they told me I need ENT . Please promise me you will get me to an ENT . Discussed that Dr. Salcedo will consult with neurology and present the next intervention for pt and his job is to accept treatment. Reports tinnitus, able to have an ongoing discussion with tw without reported or notable difficulty in hearing. Presents with hopelessness and helplessness. Encouraged to follow his plan of care, take medications as directed, work with team and milieu. Pt hugged tw precipitously at the end of our meeting stating he needed to hug to feel real. Medication Compliance: Intermittent Side effects from medications: No Attending Groups: No Review of Systems Medical Review of Systems: unchanged Review of Systems Review of Systems tinnitus reported loss of hearing Mental Status Exam Mental Status Exam Patient Appearance: Fatigued and Appropriate Patient Orientation: Person, Place, Time and Situation Level of Consciousness: Restless and Alert Patient Behavior: Talkative, Restless, Anxious, Fearful, Resistive to Care, Fatigued, Distractible, Good Eye Contact and Crying Mood Description: Depressed, Fearful and Anxious Affect Description: Flat Patient Cognition Impaired: Yes Ability to Follow Directions: Fair Speech Pattern: Spontaneous Speech Memory Description: Episodic Impaired Hallucinations: None (denies) Delusions: Paranoid Ideation and Present Thought Process: Rumination Thought Content: positive for Obsessional Thoughts, positive for Circumstantial, positive for Perseveration, positive for Preoccupation, positive for Hypochondriasis (??) and positive for Suicidal Ideation Depressive Symptoms: Increased Anxiety, Increased Irritability, Crying Spells, Loss of Int. in Activity, Feelings of Worthlessness, Feelings of Guilt, Unhappiness, Increased Fatigue, Thoughts of /Suicide, Low Self Esteem, Loss of Energy and Difficulty Concentrating Abnormal Motor Activity Signs and Symptoms: Restlessness Judgement: Poor Diagnostics Vital Signs (24Hr): Vital Signs - 24 hr 02/10/24 20:10 02/11/24 08:18 Temperature 97.8 F 98.0 F Pulse Rate 70 69 Respiratory Rate 16 16 Blood Pressure 136/93 H 127/87 Pulse Oximetry 98 98 Oxygen Delivery Method Room Air Room Air BMI result Body Mass Index 26.8 Labs 02/08/24 16:03 02/08/24 16:03 Labs: Laboratory Results - last 48 hr 02/10/24 02/10/24 07:55 07:56 Estimat Average Glucose 105 Hemoglobin A1c % 5.3 Triglycerides 89 Cholesterol 191 LDL Cholesterol, Calc 133 H HDL Cholesterol 41 Vitamin B12 640 Folate 14.1 TSH 3.10 Free T4 1.09 Medications Medications Current Medications Acetaminophen (Acetaminophen 325 Mg Tablet) 650 mg PO Q6H PRN PRN Reason: Headache/Pain Mild Scale (1-3) Al Hydroxide/Mg Hydroxide (Magnesium Hydrox/Alum Hydrox 30 Ml Oral.Susp) 30 ml PO Q6H PRN PRN Reason: Heartburn/Nausea Hydroxyzine HCl (Hydroxyzine Hcl 25 Mg Tablet) 25 mg PO Q6H PRN PRN Reason: Anxiety Levothyroxine Sodium (Levothyroxine Sodium 75 Mcg Tablet) 75 mcg PO DAILY@0600 [facility] Last Admin: 02/11/24 07:15 Dose: 75 mcg Lorazepam (Lorazepam 1 Mg Tablet) 2 mg PO BEDTIME [facility] Last Admin: 02/10/24 21:20 Dose: 2 mg Lorazepam (Lorazepam 0.5 Mg Tablet) 0.5 mg PO Q4H PRN PRN Reason: Anxiety Magnesium Hydroxide (Milk Of Magnesia 30 Ml Oral.Susp) 30 ml PO DAILY PRN PRN Reason: Constipation Quetiapine Fumarate (Quetiapine Fumarate 200 Mg Tablet) 200 mg PO BEDTIME [facility] Last Admin: 02/10/24 21:26 Dose: Not Given Quetiapine Fumarate (Quetiapine Fumarate 100 Mg Tablet) 100 mg PO BEDTIME PRN PRN Reason: insomnia Sertraline HCl (Sertraline Hcl 50 Mg Tablet) 50 mg PO DAILY [facility] Last Admin: 02/11/24 09:06 Dose: 50 mg Trazodone HCl (Trazodone Hcl 50 Mg Tablet) 50 mg PO BEDTIME MRX1 PRN PRN Reason: Insomnia Allergies Allergies Allergy/AdvReac Type Severity Reaction Status Date / Time grass pollen Allergy Unknown Unknown Verified 02/08/24 15:41 david Allergy Unknown Unknown Verified 02/08/24 15:41 Peanut Butter Allergy Unknown Unknown Verified 02/08/24 15:41 Seasonal Allergies Allergy Unknown Unknown Verified 02/08/24 15:41 almonds Allergy Unknown Unknown Uncoded 08/03/22 13:43 pineapples Allergy Unknown Unknown Uncoded 08/03/22 13:43 Assessment & Plan Assessment & Plan (1) OCD (obsessive compulsive disorder): Status: Acute Code(s): F42.9 - Obsessive-compulsive disorder, unspecified (2) Tinnitus: Status: Acute Code(s): H93.19 - Tinnitus, unspecified ear (3) MDD (major depressive disorder), recurrent episode: Qualifiers: Major depression episode severity: severe Status: Acute Code(s): F33.9 - Major depressive disorder, recurrent, unspecified Plan offer seroquel 200 mg QHS for sleep/overvalued ideas, with an additional 100 mg available PRN. offer ativan 2 mg QHS for sleep. increase zoloft to 50 mg daily. otherwise DC zoloft and initiate clomipramine trial. neuro consult for opinion re type, mgmt of tinnitus. 02/10/24: Continue tx plan 02/11/24: Encourage treatment participation and compliance Reason for continued inpatient stay Substantial Risk for: rapid decompensation and med/psych decompensation Time Spent With Patient Time: Total time managing care of this patient today ____ minutes.
--- NOTE | 2024-02-11 10:26 | P.CNNE_ITS ---
History of Present Illness Data of Consult Service Date: 02/11/24 Primary Care Provider: Chase Joe DO HPI Reason for consult: Tinnitus 53 years old man who probably has underlying history of anxiety and depression in the past has been treated with Zoloft, which apparently he stopped taking couple of years ago, has been exposed to some antipsychotics but I am not sure if he reliably took them and some benzodiazepine. His precise early age psychiatric history or psychological history was not available at this time, which could put light into his present situation. He said that he has been suffering from some ear issues including hearing loss for a while and head seen an ear doctor, last time a month ago, but he recently took a dose of Prilosec after which his hearing worsened and he had severe pressure in his ears for 24 hours that he could not bear. There was no associated cold or flu-like illness or any description of headache. After that, he was left with ringing which she said was very loud and continuous. Previously, he also has complain of hyperacusis. There was no history of any ear discharge or fever. Review of Systems 2 Review of Systems: Chronic anxiety and depression with element of OCD [facility] Past Medical History Medical History (Updated 02/11/24 @ 10:30 by Jenny Pereira MD) Urethral stricture History of concussion Clicking tinnitus of both ears Surgical History Surgical History (Updated 02/07/24 @ 11:27 by Natalie Ventura RN) Hx of knee surgery Hx of inguinal hernia surgery Social History Social History (Updated 08/03/22 @ 13:47 by Nohelia Mendez CMA) Household Members: Spouse and Children Housing: House Do you presently have visiting nurse or other home services: No Alcohol intake: current Alcohol intake frequency: a few times a month Patient Tobacco Use Status: Never used Tobacco Use of substances other than those prescribed or required for medical reasons: No Currently Displaying Signs/Symptoms of Drug Intoxication Withdrawal: No Have you been hit, kicked, punched, or otherwise hurt by someone within the past year? If so, by whom?: No Do you feel safe in your current relationship?: Yes Is there a partner from a previous relationship who is making you feel unsafe now?: No Are you made to feel afraid or neglected: No Advance Directives: No Advance Directives Information Provided: No Do you have thoughts of harming others: None Do you have a plan to hurt others: No Plan Recently lost weight without trying: Yes How much weight loss: 14-23 pounds Eating poorly because of decreased appetite: No Nutrition screen score: 4 Nutrition Risks: No Nutritional Risk Poor oral hygiene: No Meds Allergies Allergy/AdvReac Type Severity Reaction Status Date / Time grass pollen Allergy Unknown Unknown Verified 02/08/24 15:41 david Allergy Unknown Unknown Verified 02/08/24 15:41 Peanut Butter Allergy Unknown Unknown Verified 02/08/24 15:41 Seasonal Allergies Allergy Unknown Unknown Verified 02/08/24 15:41 almonds Allergy Unknown Unknown Uncoded 08/03/22 13:43 pineapples Allergy Unknown Unknown Uncoded 08/03/22 13:43 Active Medications: Current Medications Acetaminophen (Acetaminophen 325 Mg Tablet) 650 mg PO Q6H PRN PRN Reason: Headache/Pain Mild Scale (1-3) Al Hydroxide/Mg Hydroxide (Magnesium Hydrox/Alum Hydrox 30 Ml Oral.Susp) 30 ml PO Q6H PRN PRN Reason: Heartburn/Nausea Hydroxyzine HCl (Hydroxyzine Hcl 25 Mg Tablet) 25 mg PO Q6H PRN PRN Reason: Anxiety Levothyroxine Sodium (Levothyroxine Sodium 75 Mcg Tablet) 75 mcg PO DAILY@0600 [facility] Last Admin: 02/11/24 07:15 Dose: 75 mcg Lorazepam (Lorazepam 1 Mg Tablet) 2 mg PO BEDTIME [facility] Last Admin: 02/10/24 21:20 Dose: 2 mg Lorazepam (Lorazepam 0.5 Mg Tablet) 0.5 mg PO Q4H PRN PRN Reason: Anxiety Magnesium Hydroxide (Milk Of Magnesia 30 Ml Oral.Susp) 30 ml PO DAILY PRN PRN Reason: Constipation Quetiapine Fumarate (Quetiapine Fumarate 200 Mg Tablet) 200 mg PO BEDTIME [facility] Last Admin: 02/10/24 21:26 Dose: Not Given Quetiapine Fumarate (Quetiapine Fumarate 100 Mg Tablet) 100 mg PO BEDTIME PRN PRN Reason: insomnia Sertraline HCl (Sertraline Hcl 50 Mg Tablet) 50 mg PO DAILY [facility] Last Admin: 02/11/24 09:06 Dose: 50 mg Trazodone HCl (Trazodone Hcl 50 Mg Tablet) 50 mg PO BEDTIME MRX1 PRN PRN Reason: Insomnia Home Medications ?Medication ?Instructions ?Recorded ?Confirmed ?Last Taken ?Type levothyroxine 75 mcg tablet 75 mcg PO DAILY@0600 02/08/24 02/09/24 Unknown History sertraline 25 mg tablet 25 mg PO DAILY 02/08/24 02/09/24 02/08/24 History Physical Exam 2 Vital Signs: Vital Signs: Last Vital Signs Temp 98.0 F 02/11/24 08:18 Pulse 69 02/11/24 08:18 Resp 16 02/11/24 08:18 BP 127/87 02/11/24 08:18 Pulse Ox 98 02/11/24 08:18 O2 Del Method Room Air 02/11/24 08:18 BMI result Body Mass Index 26.8 Neuro: Other: He is alert and awake with normal spontaneity of speech fluency comprehension and anxious affect. Face is symmetrical. Visual gage are full. Hearing to bedside communication is normal. There was no focal weakness. Deep tendon reflexes are trace to 1+ with flexor plantars. Balance gait and coordination are normal. Speech is normal. Results Labs 02/08/24 16:03 02/08/24 16:03 Assessment and Plan (1) Tinnitus: Qualifiers: Laterality: bilateral Qualified Code(s): H93.13 - Tinnitus, bilateral Status: Acute 53 years old man who probably has underlying anxiety, depression, and tendency for OCD reported taking a dose of Prilosec resulting in severe tinnitus with hearing loss. Is elementary neurological examination was okay. I recommend an outpatient audiogram and ENT evaluation though I expect that to be probably normal. Because of his previous somewhat similar complaints, despite his psychiatric disease, if not done before, MRI of cerebellopontine angle is recommended to rule out any physical reason for tinnitus and hearing difficulty. In most cases of tinnitus, it remains a subjective feeling with limited raise available to find its exact etiology. Even in a patient with a focal lesion resulting in hearing loss and tinnitus, it sudden appearance in both ears is atypical. Probably the most likely explanation for his symptoms is a psychosomatic illness. Procedures Date of Service Date of Service: 02/11/24
[2024-02-11] MEDS: LORazepam 0.5 MG TABLET PO (11:17)
[2024-02-11 20:00] VITALS: BP 129/74; PULSE 78; RESP 16; TEMP 36.5; O2SAT 96
[2024-02-11] MEDS: LORazepam 1 MG TABLET 2 MG PO (20:40)
--- NOTE | 2024-02-11 20:43 | PC.NURSE ---
pt refused HS Seroquel 200mg @2144
[2024-02-12] MEDS: Levothyroxine Sodium 75 MCG TABLET PO (06:54)
[2024-02-12 07:20] VITALS: BP 134/88; PULSE 77; RESP 16; TEMP 36.9; O2SAT 96
[2024-02-12] MEDS: Sertraline HCL 50 MG TABLET PO (08:58)
--- NOTE | 2024-02-12 14:56 | MHC.CLN ---
NUTRITION CONSULT FOR REPORTED RECENT 20# WEIGHT LOSS. REVIEW OF WEIGHT HX SHOWS 34# WEIGHT LOSS X 1.5 YEARS. UNABLE TO ASSESS WEIGHT LOSS X 30, 60, 90 DAYS. PATIENT STATED THAT HE HAD BEEN SUICIDAL X 1 WEEK. DECREASED APPETITE. NOT RECEPTIVE TO ENSURE SUPPLEMENT. PLEASE CONSULT IF PO INTAKE IS POOR AND SUPPLEMENT IS NEEDED.
--- NOTE | 2024-02-12 16:24 | HO.PSYCHPN ---
Subjective Subjective Date of Service: 02/12/24 Reason For Visit: SI Interim History: believes losing his hearing from last monday, needs to see ENT expediently or concerned he will suffer irreversible hearing loss. does not appear appreciably harder of hearing than on monday. per staff, anxious, labile, taking benzos. refusing seroquel. Mental Status Exam Mental Status Exam Narrative: adequately dressed and groomed. cooperative. no PMA/PMR. speech nml amount, rate, loudness, latency. thoughts linear and variably logical. overvalued ideas bordering on delusional. affect constricted, hyper-intense, non-labile. mood anxious. no SI/HI/AVH expressed. Diagnostics Vital Signs (24Hr): Vital Signs - 24 hr 02/11/24 20:00 02/12/24 07:20 Temperature 97.7 F 98.5 F Pulse Rate 78 77 Respiratory Rate 16 16 Blood Pressure 129/74 134/88 Pulse Oximetry 96 96 Oxygen Delivery Method Room Air Room Air BMI result Body Mass Index 26.8 Labs 02/08/24 16:03 02/08/24 16:03 Medications Medications Current Medications Acetaminophen (Acetaminophen 325 Mg Tablet) 650 mg PO Q6H PRN PRN Reason: Headache/Pain Mild Scale (1-3) Al Hydroxide/Mg Hydroxide (Magnesium Hydrox/Alum Hydrox 30 Ml Oral.Susp) 30 ml PO Q6H PRN PRN Reason: Heartburn/Nausea Hydroxyzine HCl (Hydroxyzine Hcl 25 Mg Tablet) 25 mg PO Q6H PRN PRN Reason: Anxiety Levothyroxine Sodium (Levothyroxine Sodium 75 Mcg Tablet) 75 mcg PO DAILY@0600 [facility] Last Admin: 02/12/24 06:54 Dose: 75 mcg Lorazepam (Lorazepam 1 Mg Tablet) 2 mg PO BEDTIME [facility] Last Admin: 02/11/24 20:40 Dose: 2 mg Lorazepam (Lorazepam 0.5 Mg Tablet) 0.5 mg PO Q4H PRN PRN Reason: Anxiety Last Admin: 02/11/24 11:17 Dose: 0.5 mg Magnesium Hydroxide (Milk Of Magnesia 30 Ml Oral.Susp) 30 ml PO DAILY PRN PRN Reason: Constipation Quetiapine Fumarate (Quetiapine Fumarate 200 Mg Tablet) 200 mg PO BEDTIME [facility] Last Admin: 02/11/24 20:42 Dose: Not Given Quetiapine Fumarate (Quetiapine Fumarate 100 Mg Tablet) 100 mg PO BEDTIME PRN PRN Reason: insomnia Sertraline HCl (Sertraline Hcl 50 Mg Tablet) 50 mg PO DAILY [facility] Last Admin: 02/12/24 08:58 Dose: 50 mg Trazodone HCl (Trazodone Hcl 50 Mg Tablet) 50 mg PO BEDTIME MRX1 PRN PRN Reason: Insomnia Allergies Allergies Allergy/AdvReac Type Severity Reaction Status Date / Time grass pollen Allergy Unknown Unknown Verified 02/08/24 15:41 david Allergy Unknown Unknown Verified 02/08/24 15:41 Peanut Butter Allergy Unknown Unknown Verified 02/08/24 15:41 Seasonal Allergies Allergy Unknown Unknown Verified 02/08/24 15:41 almonds Allergy Unknown Unknown Uncoded 08/03/22 13:43 pineapples Allergy Unknown Unknown Uncoded 08/03/22 13:43 Assessment & Plan Assessment & Plan (1) OCD (obsessive compulsive disorder): Status: Acute Code(s): F42.9 - Obsessive-compulsive disorder, unspecified (2) Tinnitus: Qualifiers: Laterality: bilateral Qualified Code(s): H93.13 - Tinnitus, bilateral Status: Acute Code(s): H93.19 - Tinnitus, unspecified ear (3) MDD (major depressive disorder), recurrent episode: Qualifiers: Major depression episode severity: severe Status: Acute Code(s): F33.9 - Major depressive disorder, recurrent, unspecified Plan offer seroquel 200 mg QHS for sleep/overvalued ideas, with an additional 100 mg available PRN. offer ativan 2 mg QHS for sleep. increase zoloft to 50 mg daily. otherwise DC zoloft and initiate clomipramine trial. neuro consult for opinion re type, mgmt of tinnitus. 02/10/24: Continue tx plan 02/11/24: Encourage treatment participation and compliance 02/11: refusing seroquel, taking only ativan. check brain MRI as per neuro consult. ENT not available for inpatient consults. encouraged to take seroquel. Reason for continued inpatient stay Substantial Risk for: harm to self Time Spent With Patient Time: Total time managing care of this patient today __35__ minutes.
[2024-02-12 20:00] VITALS: BP 147/90; PULSE 72; RESP 16; TEMP 37; O2SAT 98
[2024-02-12] MEDS: LORazepam 1 MG TABLET 2 MG PO (21:37)
[2024-02-13] MEDS: Levothyroxine Sodium 75 MCG TABLET PO (06:40)
[2024-02-13 08:00] VITALS: BP 131/80; PULSE 65; RESP 16; TEMP 36.8; O2SAT 98
[2024-02-13] MEDS: Sertraline HCL 50 MG TABLET PO (08:58)
--- NOTE | 2024-02-13 16:01 | HO.PSYCHPN ---
Subjective Subjective Date of Service: 02/13/24 Reason For Visit: SI Interim History: circular conversation. seems to really want MD to believe that he has experienced a catastrophic physiologic event to his inner ear. refuses to consider taking antipsychotic medication. asking for ENT appointment. ENT appointment arranged for , pt appreciative. per staff, refused MRI last night bcse he was afraid it would worsen his tinnitus. c/o heavy depression and anxiety. withdrawn. i want t6o leave this world. Mental Status Exam Mental Status Exam Narrative: adequately dressed and groomed. cooperative. no PMA/PMR. speech incr amount, rate. nml loudness, decr latency. thoughts linear and variably logical. overvalued ideas bordering on delusional. affect constricted, hyper-intense, non-labile. mood anxious. no SI/HI/AVH expressed. Diagnostics Vital Signs (24Hr): Vital Signs - 24 hr 02/12/24 20:00 02/13/24 08:00 Temperature 98.6 F 98.2 F Pulse Rate 72 65 Respiratory Rate 16 16 Blood Pressure 147/90 H 131/80 Pulse Oximetry 98 98 Oxygen Delivery Method Room Air Room Air BMI result Body Mass Index 26.8 Labs 02/08/24 16:03 02/08/24 16:03 Medications Medications Current Medications Acetaminophen (Acetaminophen 325 Mg Tablet) 650 mg PO Q6H PRN PRN Reason: Headache/Pain Mild Scale (1-3) Al Hydroxide/Mg Hydroxide (Magnesium Hydrox/Alum Hydrox 30 Ml Oral.Susp) 30 ml PO Q6H PRN PRN Reason: Heartburn/Nausea Hydroxyzine HCl (Hydroxyzine Hcl 25 Mg Tablet) 25 mg PO Q6H PRN PRN Reason: Anxiety Levothyroxine Sodium (Levothyroxine Sodium 75 Mcg Tablet) 75 mcg PO DAILY@0600 [facility] Last Admin: 02/13/24 06:40 Dose: 75 mcg Lorazepam (Lorazepam 1 Mg Tablet) 2 mg PO BEDTIME [facility] Last Admin: 02/12/24 21:37 Dose: 1 mg Lorazepam (Lorazepam 0.5 Mg Tablet) 0.5 mg PO Q4H PRN PRN Reason: Anxiety Last Admin: 02/11/24 11:17 Dose: 0.5 mg Magnesium Hydroxide (Milk Of Magnesia 30 Ml Oral.Susp) 30 ml PO DAILY PRN PRN Reason: Constipation Quetiapine Fumarate (Quetiapine Fumarate 200 Mg Tablet) 200 mg PO BEDTIME [facility] Last Admin: 02/12/24 22:27 Dose: Not Given Quetiapine Fumarate (Quetiapine Fumarate 100 Mg Tablet) 100 mg PO BEDTIME PRN PRN Reason: insomnia Sertraline HCl (Sertraline Hcl 50 Mg Tablet) 50 mg PO DAILY [facility] Last Admin: 02/13/24 08:58 Dose: 50 mg Trazodone HCl (Trazodone Hcl 50 Mg Tablet) 50 mg PO BEDTIME MRX1 PRN PRN Reason: Insomnia Allergies Allergies Allergy/AdvReac Type Severity Reaction Status Date / Time grass pollen Allergy Unknown Unknown Verified 02/08/24 15:41 david Allergy Unknown Unknown Verified 02/08/24 15:41 Peanut Butter Allergy Unknown Unknown Verified 02/08/24 15:41 Seasonal Allergies Allergy Unknown Unknown Verified 02/08/24 15:41 almonds Allergy Unknown Unknown Uncoded 08/03/22 13:43 pineapples Allergy Unknown Unknown Uncoded 08/03/22 13:43 Assessment & Plan Assessment & Plan (1) OCD (obsessive compulsive disorder): Status: Acute Code(s): F42.9 - Obsessive-compulsive disorder, unspecified (2) Tinnitus: Qualifiers: Laterality: bilateral Qualified Code(s): H93.13 - Tinnitus, bilateral Status: Acute Code(s): H93.19 - Tinnitus, unspecified ear (3) MDD (major depressive disorder), recurrent episode: Qualifiers: Major depression episode severity: severe Status: Acute Code(s): F33.9 - Major depressive disorder, recurrent, unspecified Plan offer seroquel 200 mg QHS for sleep/overvalued ideas, with an additional 100 mg available PRN. offer ativan 2 mg QHS for sleep. increase zoloft to 50 mg daily. otherwise DC zoloft and initiate clomipramine trial. neuro consult for opinion re type, mgmt of tinnitus. 02/10/24: Continue tx plan 02/11/24: Encourage treatment participation and compliance 02/11: refusing seroquel, taking only ativan. check brain MRI as per neuro consult. ENT not available for inpatient consults. encouraged to take seroquel. 02/12: no change from yesterday. refused MRI on the grounds it may have exacerbated his tinnitus. asking for ENT appointment. Dr. Longoria's office made appointment for at 0945. plan to discharge on morning. refusing to take antipsychotics. Reason for continued inpatient stay Substantial Risk for: harm to self Time Spent With Patient Time: Total time managing care of this patient today __35__ minutes.
[2024-02-13 20:00] VITALS: BP 134/77; PULSE 67; RESP 16; TEMP 36.4; O2SAT 96
[2024-02-13] MEDS: LORazepam 1 MG TABLET 2 MG PO (20:40)
[2024-02-14] MEDS: Levothyroxine Sodium 75 MCG TABLET PO (06:39)
[2024-02-14 08:00] VITALS: BP 119/69; PULSE 68; RESP 15; TEMP 37.1; O2SAT 97
[2024-02-14] MEDS: Sertraline HCL 50 MG TABLET PO (09:04)
--- NOTE | 2024-02-14 14:23 | PM.PSYDC ---
DS: Providers Provider Date of Service: 02/14/24 Date of admission: 02/09/24 11:49 Primary care physician: Chase Joe DO Consults: 02/09/24 13:37 Consult to Neurology Routine Consulting Provider: [facility] Reason for consultation: new-onset tinnitus Has provider been notified: No DS: Diagnosis Discharge Diagnosis (1) OCD (obsessive compulsive disorder): Status: Acute (2) Tinnitus: Status: Acute (3) MDD (major depressive disorder), recurrent episode: Status: Acute DS: Medications Discharge Medications Home Medications: Home Medications ?Medication ?Instructions ?Recorded ?Confirmed levothyroxine 75 mcg tablet 75 mcg PO DAILY@0600 02/08/24 02/09/24 Previous Rx's ?Medication ?Instructions ?Recorded lorazepam 1 mg tablet 1 mg PO BEDTIME 15 days #15 tabs 02/14/24 quetiapine 100 mg tablet 100 mg PO BEDTIME PRN insomnia 30 02/14/24 days #30 tabs sertraline 50 mg tablet 50 mg PO DAILY 30 days #30 tabs 02/14/24 Mental Status Exam Mental Status Exam Narrative: adequately dressed and groomed. cooperative. no PMA/PMR. speech incr amount, nml rate. nml loudness, decr latency. thoughts linear and variably logical. overvalued ideas bordering on delusional. affect constricted, hyper-intense, non-labile. mood crappy. no SI/HI/AVH. Data Data Completed and Pending Completed studies during hospitalization [Text1]: 02/08/24 02/10/24 02/10/24 16:03 07:55 07:56 WBC 8.6 RBC 4.90 Hgb 15.9 Hct 44.1 MCV 90.0 MCH 32.4 MCHC 36.1 H RDW 11.6 Plt Count 335 MPV 10.1 Immature Gran % (Auto) 0.1 Neut % (Auto) 70.5 Lymph % (Auto) 20.9 Williamson % (Auto) 5.5 Eos % (Auto) 2.3 Baso % (Auto) 0.7 Lymph # (Auto) 1.8 Williamson # (Auto) 0.5 Eos # (Auto) 0.2 Baso # (Auto) 0.1 Abs Immat Gran (auto) 0.01 Absolute Neuts (auto) 6.0 Absolute Nucleated RBC 0.000 Nucleated RBC % (auto) 0.0 Sodium 139 Potassium 4.2 Chloride 103 Carbon Dioxide 28 Anion Gap 12 BUN 6 L Creatinine 0.89 Estim Creat Clear Calc 91.7 Estimated GFR > 60 Random Glucose 98 Estimat Average Glucose 105 Hemoglobin A1c % 5.3 Calcium 9.9 Magnesium 2.2 Total Bilirubin 0.5 Direct Bilirubin 0.2 AST 33 ALT 39 Alkaline Phosphatase 118 H Total Protein 7.5 Albumin 4.5 Triglycerides 89 Cholesterol 191 LDL Cholesterol, Calc 133 H HDL Cholesterol 41 Vitamin B12 640 Folate 14.1 TSH 2.91 3.10 Free T4 1.09 Urine Color Yellow Urine Appearance Clear Urine pH 7.5 Ur Specific Compton <= 1.005 Urine Protein Negative Urine Glucose (UA) Negative Urine Ketones Negative Urine Blood Negative Urine Nitrite Negative Ur Leukocyte Esterase Negative Urine Opiates Screen Not Detected Ur Buprenorphine Scrn Not Detected Ur Oxycodone Screen Not Detected Urine Methadone Screen Not Detected Urine Fentanyl Screen Not Detected Ur Barbiturates Screen Not Detected Ur Phencyclidine Scrn Not Detected Ur Amphetamines Screen Not Detected U Benzodiazepines Scrn Not Detected Urine Cocaine Screen Not Detected U Marijuana (THC) Screen Not Detected Ethyl Alcohol < 10 DS: Summary Hospital Course Hospital Course: per 02/08 admission note: HPI Narrative: per CARE team rashaad, pt was walked over from [facility] due to SI, hopelessness, depression due to tinnitus. OCD Dx, historically. pt had been in [facility] from 02/05 being referred by outpt psych MD for inadequately managed depression, anxiety, OCD Sx. c/o tinnitus, hyperacusis (noxacusis). pt reportedly stopped taking zoloft in 2021. per collateral from pt's , when pt was taking the medication he was able to manage his symptoms and was more engaged with life. c/o sleeping only 2-3 hours per night since 02/02/2024, when he experienced a sharp exacerbation in tinnitus Sx (which he attributes to having taken one prilosec dose). on interview with MD, pt reports long h/o OCD, more recently with hearing loss (per his report, unclear if he has had this established via audiology) and even more recently with c/o tinnitus. states mid 2021 he stopped taking the zoloft he had been on for years because he was feeling better. in the period 2021 through october 2023, he reports seeking out prednisone courses in the belief they will address his tinnitus. he states, trying to help my hearing with steroids, but i'm delusional, i end up hurting myself. he describes himself as an abuser of steroids, and despite feeling it has largely been counter-productive for him, yet he feels compelled to keep seeking them out. reports his outpt psych MD recently prescribed him zyprexa and risperidone, which he states he had bad experiences with. he believes zyprexa caused him orthostatic hypotension, while risperidone briefly exacerbated his tinnitus. pt c/o having a very difficult time sleeping due to tinnitus. MD suggests trial of seroquel 200-300 mg at HS for perseverative and overvalued thoughts as well as insomnia; pt is skeptical. MD also agrees to add ativan 2 mg at HS to help with sleep. discussion also had re increasing zoloft back over 100 mg daily, where he had successfully been for years, versus initiating a trial of clomipramine. pt agreed to increase zoloft to 50 mg daily. generally, pt is bound by his anxiety that these various medications will worsen his hearing loss or tinnitus and so is extremely reluctant to take them. he is already stating he plans to kill himself otherwise. he is not entirely open to the logic that he then has nothing to lose: if he is going to kill himself due to his current condition, even if he takes medications and it makes his condition worse, he was going to kill himself when he was feeling better than that anyway, so why wouldn't he give them a try? ECT was also raised as an option. Past Psychiatric History: hosps: reports one prior, [facility] in 2021, after accidental steroid overdose SA: denies SIB: denies HIB: denies outpt: OCD. sees prescriber via telehealth. also has telehealth therapy 1-2x weekly. h/o zoloft up to 175 mg daily at one point, but over 100 mg daily for years. 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 . lives with , son (13), and daughter (18) in [place], [place]. on medical leave from his work. Substance History: tobacco - none alcohol - none since october identifies himself as a prednisone abuser. reports that between october 2021 and december 2023 he sought out high dose prednisone therapy on 8 separate occasions. denies other substance use. Trauma History: denies Precis: 02/08: offer seroquel 200 mg QHS for sleep/overvalued ideas, with an additional 100 mg available PRN. offer ativan 2 mg QHS for sleep. increase zoloft to 50 mg daily. otherwise DC zoloft and initiate clomipramine trial. neuro consult for opinion re type, mgmt of tinnitus. 02/10/24: Continue tx plan 02/11/24: Encourage treatment participation and compliance 02/11: refusing seroquel, taking only ativan. check brain MRI as per neuro consult. ENT not available for inpatient consults. encouraged to take seroquel. 02/12: no change from yesterday. refused MRI on the grounds it may have exacerbated his tinnitus. asking for ENT appointment. Dr. Longoria's office made appointment for at 0945. plan to discharge on morning. refusing to take antipsychotics. 02/13: meds reviewed, reconciled, prescribed. no change in presentation. ENT appointment tomorrow. 02/14: no change. discharged to ENT appointment as per plan. Time Spent with Patient Time attestation: Total time managing care of this patient today __35__ minutes. Discharge Plan Discharge Anticipated Discharge Date/Time: 02/15/24 09:00 Patient Disposition: Home, Self-Care Discharge Diagnosis: OCD Major Depressive Disorder Tinnitus Referrals: Chase Joe DO [Primary Care Provider] - 1 Week (Please call your primary care provider to schedule a follow up appt within 7-10 days of your discharge.) Discharge Medications: New lorazepam 1 mg Tablet 1 mg PO BEDTIME 15 Days Qty: 15 1RF sertraline 50 mg Tablet 50 mg PO DAILY 30 Days Qty: 30 0RF quetiapine 100 mg Tablet 100 mg PO BEDTIME PRN (Reason: insomnia) 30 Days Qty: 30 0RF Continued levothyroxine 75 mcg tablet 75 mcg PO DAILY@0600 Discontinued sertraline 25 mg tablet 25 mg PO DAILY Discharge Orders: Discharge Order (Routine); Ordered 02/15/24 Ordered By: Yamil Salcedo Diet: Advance to usual diet Activity on Discharge: As tolerated Stand Alone Forms: Patient Portal Discharge page, Community Support Print Language: Swedish Care Plan Goals: remain safe and stable in the outpatient treatment setting Health Concerns: Tinnitus Plan of Treatment: take medications as prescribed, attend appointments as scheduled Assessment: not at imminent risk of harm to self or others Discharge Date/Time: 02/15/24 09:10
--- NOTE | 2024-02-14 19:12 | PC.NURSE ---
Pt stated that he is looking forward to the ENT appointment tomorrow. He also stated that he will come back to the ED because he is safe on the unit, but not sure he will be safe if he goes home. I have a right to end my life if that's what I think is best. I have great life insurance and my family will be taken care of. I will explain to my children what is going on, to decrease the trauma of them loosing me . This sign writer hand let the patient know that she will be letting the provider know about this conversation. Pt stated I will take the Seroquel if he let's me back in here . This information given to charge nurse and put on [id number] report.
[2024-02-14 20:00] VITALS: BP 149/84; PULSE 69; RESP 16; TEMP 36.6; O2SAT 97
[2024-02-14] MEDS: LORazepam 1 MG TABLET PO (21:04)
[2024-02-15] MEDS: Levothyroxine Sodium 75 MCG TABLET PO (06:01)
[2024-02-15 07:48] VITALS: BP 134/81; PULSE 67; RESP 14; TEMP 36.9; O2SAT 98
[2024-02-15] MEDS: Sertraline HCL 50 MG TABLET PO (08:01)
== END 2024-02-15 09:10 | disposition home or self-care (01) | DRG 751 ==
LOC: HO.ED 20:28 → HO.PADLT16 02-09 11:49
PROVIDERS: Physician Assistant; Admitting Provider Psychiatry & Neurology Psychiatry; Emergency Provider Internal Medicine; PCP Hospitalist; Visit Provider Psychiatry & Neurology Psychiatry
DX: F33.9 Major depressive disorder, recurrent, unspecified (principal); R45.851 Suicidal ideations; F42.9 Obsessive-compulsive disorder, unspecified; E03.9 Hypothyroidism, unspecified; H93.13 Tinnitus, bilateral; Z79.890 Hormone replacement therapy; Z79.899 Other long term (current) drug therapy
CPT/HCPCS: 36415; 80048; 80061; 80076; 80307; 81003; 82607; 82746; 83036; 83735; 84439; 84443; 85025; 93005; 99285; S9485

== ENCOUNTER → 2024-02-08 22:10 | Outpatient (BNV) | payer BC, SELFPAY | PROVIDERS: Admitting Provider Psychiatry & Neurology Psychiatry; Emergency Provider Internal Medicine; PCP Hospitalist; Visit Provider Internal Medicine | DX: Z01.818 Encounter for other preprocedural examination (principal) | CPT/HCPCS: 93010 ==

== ENCOUNTER → 2024-02-09 11:49 | Outpatient (BNV) | payer BC, SELFPAY | PROVIDERS: Admitting Provider Psychiatry & Neurology Psychiatry; Emergency Provider Internal Medicine; PCP Hospitalist; Visit Provider Psychiatry & Neurology Neurology | DX: H93.13 Tinnitus, bilateral (principal) | CPT/HCPCS: 99222 ==

== ENCOUNTER → 2024-02-09 11:49 | Outpatient (BNV) | payer BC, SELFPAY | PROVIDERS: Admitting Provider Psychiatry & Neurology Psychiatry; Emergency Provider Internal Medicine; PCP Hospitalist; Visit Provider Psychiatry & Neurology Psychiatry | DX: F33.2 Major depressive disorder, recurrent severe without psychotic features (principal); F42.9 Obsessive-compulsive disorder, unspecified; H93.19 Tinnitus, unspecified ear | CPT/HCPCS: 90792; 99231; 99232; 99239 ==

== ENCOUNTER 2024-03-03 16:21 | Inpatient (IN) | payer BC, SELFPAY ==
[2024-03-03 16:31] VITALS: BP 123/67; PULSE 86; RESP 18; TEMP 36.7; O2SAT 100; BMI 27.2
--- NOTE | 2024-03-03 16:34 | ED_ITS ---
HPI - General Adult General Chief complaint: Psychiatric Symptoms Stated complaint: SI Time Seen by Provider: 03/03/24 16:39 Source: patient, RN notes reviewed and old records reviewed Mode of arrival: ambulatory Limitations: no limitations History of Present Illness ED Provider: Lang PINEDA narrative: 53-year-old male past medical history significant for major depressive disorder, anxiety, OCD, tinnitus presents for evaluation of suicidal ideation. Patient reports worsening depression with suicidal thoughts for the last few weeks. Currently he does not have any active suicidal ideation or plan for SI He has had these thoughts on and off for the last few weeks. Patient reports that 1 of the triggers for his increasing depression is severe tinnitus He reports that his ears have been ringing 14/11 for the last few weeks he thinks he may be related to 1 of his medications He reports he was seen in [place] for this and was told ?there is not much we can do. ? He denies any other somatic complaints He reports being compliant with all of his medications Related Data Home Medications ?Medication ?Instructions ?Recorded ?Confirmed levothyroxine 75 mcg tablet 75 mcg PO DAILY@0600 02/08/24 02/09/24 Previous Rx's ?Medication ?Instructions ?Recorded lorazepam 1 mg tablet 1 mg PO BEDTIME 15 days #15 tabs 02/14/24 quetiapine 100 mg tablet 100 mg PO BEDTIME PRN insomnia 30 02/14/24 days #30 tabs sertraline 50 mg tablet 50 mg PO DAILY 30 days #30 tabs 02/14/24 Allergies Allergy/AdvReac Type Severity Reaction Status Date / Time grass pollen Allergy Unknown Unknown Verified 03/03/24 16:37 david Allergy Unknown Unknown Verified 02/08/24 15:41 Peanut Butter Allergy Unknown Unknown Verified 02/08/24 15:41 Seasonal Allergies Allergy Unknown Unknown Verified 02/08/24 15:41 almonds Allergy Unknown Unknown Uncoded 08/03/22 13:43 pineapples Allergy Unknown Unknown Uncoded 08/03/22 13:43 Review of Systems Constitutional: Constitutional: Denies body ache(s), Denies chills, Denies fever(s), Denies frequent falls and Denies headache(s) Eyes: Eyes: Denies blurry vision ENT: Denies headache(s) and Reports tinnitus Cardiovascular: Cardiovascular: Denies chest pain and Denies dyspnea Respiratory: Respiratory: Denies cough and Denies dyspnea Gastrointestinal: Gastrointestinal: Denies abdominal pain, Denies nausea and Denies vomiting Musculoskeletal: Musculoskeletal: Denies back pain Integumentary/Breasts: Skin/Breast: Denies rash Neurologic: Denies frequent falls and Denies headache(s) Psychiatric: Psychiatric: Denies anxiety [facility] Past Medical History Medical History (Updated 03/03/24 @ 17:48 by Magdiel Croft) Depression Urethral stricture History of concussion Clicking tinnitus of both ears Surgical History (Updated 02/07/24 @ 11:27 by Natalie Ventura RN) Hx of knee surgery Hx of inguinal hernia surgery Social History Social History (Updated 08/03/22 @ 13:47 by Nohelia Mendez CMA) Household Members: Spouse and Children Housing: House Do you presently have visiting nurse or other home services: No Alcohol intake: current Alcohol intake frequency: a few times a month Patient Tobacco Use Status: Never used Tobacco Advance Directives: No Advance Directives Information Provided: No service: No Sexual orientation: Straight/Heterosexual Physical Exam ED Vital Signs: Vital Signs - 24 hr 03/03/24 16:31 03/03/24 16:44 Temperature 98.1 F 98.1 F Pulse Rate 86 86 Respiratory Rate 18 18 Blood Pressure 123/67 123/67 Pulse Oximetry 100 100 Oxygen Delivery Method Room Air Room Air BMI result Body Mass Index 27.2 Const General: healthy appearing, comfortable, no acute distress, alert and awake Nutritional Appearance: well nourished Orientation/consciousness: patient oriented x3 HENMT Head: Yes normocephalic and Yes atraumatic Eyes Eyelids: Yes eyelids normal Conjunctivae: conjunctivae normal Sclerae: sclerae normal Corneas: corneas normal Pupils: Equal, round and reactive pupils present EOM: EOMs intact bilaterally Neck Neck: Yes full ROM Resp Effort & Inspection: normal respiratory effort, able to speak in complete sentences and not labored Cardio Rate: regular rate Rhythm: regular rhythm GI Inspection: No distended Palpation (GI): Soft to palpation, not firm, nontender, no guarding and not rigid Skin General skin exam: elasticity normal Neuro General: patient oriented x3 Cranial nerves: Yes Equal, round and reactive pupils present and Yes Bilaterally intact EOM present Cognition (Neuro): normal cognition Extrem Other: Moving all extremities well without any obvious deformities Course Course Course Narrative: RME performed by Ling Gutiérrez PA-C. Patient is a 53 year old assigned male at presenting to the emergency department with suicidal ideation. Detailed physical exam and review of systems are deferred to the primary education professor. EKG and labs ordered. Patient placed back in the POD. Medical Decision Making Medical Decision Making MDM Narrative: 53-year-old male presents for evaluation of depression with suicidal ideation on and off. Plan for medical clearance and care team evaluation Differential Diagnosis Differential Diagnoses: The differential diagnosis associated with the presentation includes Depression Suicidal ideation Substance abuse Bipolar disorder Anxiety Discharge Plan Discharge Clinical Impression: Depression Patient Disposition: Still a Patient Prescriptions: No Action levothyroxine 75 mcg tablet 75 mcg PO DAILY@0600 lorazepam 1 mg Tablet 1 mg PO BEDTIME 15 Days Qty: 15 1RF sertraline 50 mg Tablet 50 mg PO DAILY 30 Days Qty: 30 0RF quetiapine 100 mg Tablet 100 mg PO BEDTIME PRN (Reason: insomnia) 30 Days Qty: 30 0RF Print Language: [place]
--- NOTE | 2024-03-03 16:36 | ECG_ITS ---
Test Reason : MEDICAL CLEARANCE Blood Pressure : / mmHG Vent. Rate : 064 BPM Atrial Rate : 064 BPM P-R Int : 134 ms QRS Dur : 086 ms QT Int : 396 ms P-R-T Axes : 062 026 066 degrees QTc Int : 408 ms Normal sinus rhythm Normal ECG When compared with ECG of 08-FEB-2024 22:10, No significant change was found Referred By: Ling Gutiérrez Electronically Signed By:Arjun Keith
[2024-03-03 16:44] VITALS: BP 123/67; PULSE 86; RESP 18; TEMP 36.7; O2SAT 100
[2024-03-03 17:55] LABS: MANUAL DIFF FLAG NO
[2024-03-03 17:58] LABS: Basophils Percent Auto 0.6 % (0-2); Eosinophils Absolute Auto 0.3 X10*3/uL (0.0-0.4); Eosinophils Percent Auto 3.9 % (0-4); Hematocrit 41.1 % (42.0-52.0); Hemoglobin 14.6 g/dl (14.0-18.0); Imm Gran Abs Auto 0.01 X10*3/uL (0.00-0.03); Imm Gran Pct Auto 0.1 % (0.0-0.4); Lymphocytes Absolute Auto 1.5 X10*3/uL (1.2-4.9); Lymphocytes Percent Auto 22.3 % (20-40); Mean Corpuscular HGB Conc 35.5 g/dl (31.0-36.0); Mean Corpuscular Hemoglobin 32.5 pg (27.0-33.0); Mean Corpuscular Volume 91.5 fL (80.0-98.0); Monocytes Absolute Auto 0.5 X10*3/uL (0.1-1.2); Monocytes Percent Auto 7.2 % (2-11); Neutrophils Absolute Auto 4.4 x10*3/uL (2.0-8.3); Neutrophils Percent Auto 65.9 % (45-73); Platelet Count 272 X10*3/uL (160-400); Red Blood Count 4.49 X10*6/uL (4.60-5.80); Red Cell Distribution Width 11.9 % (11.0-16.0); White Blood Count 6.7 X10*3/uL (4.8-10.8)
[2024-03-03 18:18] LABS: Acetaminophen LAB < 3 mcg/mL (<30); Alanine Aminotransferase 31 U/L (0-40); Albumin Level 3.8 g/dL (3.5-5.0); Alkaline Phosphatase 93 U/L (39-117); Anion Gap 13 (12-20); Aspartate Amino Transferase 22 U/L (5-37); Bilirubin Total 0.3 mg/dL (0.0-1.0); Blood Urea Nitrogen 6 mg/dL (9-16); Calcium 8.6 mg/dL (8.4-10.2); Carbon Dioxide 26 mmol/L (22-29); Chloride 107 mmol/L (96-108); Creatinine Clr Calc Pharmacy 98.4; Estimated Glomerular Filt Rate > 60; Ethanol < 10 mg/dL; Glucose Random 82 mg/dL (60-115); Potassium 3.7 mmol/L (3.3-5.1); Salicylate < 5.0 mg/dL (15-30); Sodium 142 mmol/L (135-145); Total Protein 6.5 g/dL (6.5-8.0)
--- NOTE | 2024-03-03 20:16 | MHC.EDTECH ---
urine sample obtained from patient at this time.
[2024-03-03 20:25] LABS: Appearance Urine Clear; Color Urine Yellow; Glucose Urine UA Negative (Negative); Leukocyte Esterase Urine Small (1+) (Negative); Nitrite Urine Negative (Negative); PH 7.5 (5.0-9.0); UMIC TRIGGER UA YES; Urine Blood Negative (Negative); Urine Ketones Negative (Negative); Urine Protein Negative (Neg-Trace)
[2024-03-03 20:30] LABS: Bacteria Urine None Seen (None Seen); Hyaline Casts Urine 0-2 /LPF (0-2); RBC Urine 0-2 /HPF (0-2); Squamous Epithelial Cell Urine 0-2 /HPF (0-2)
[2024-03-03 20:36] LABS: Amphetamine Screen Urine Not Detected (Not Detect); Barbiturates, Urine Not Detected (Not Detect); Benzodiazepines Screen Urine Not Detected (Not Detect); Buprenorphine Scr Not Detected (Not Detect); Cannabinoid Screen Urine Not Detected (Not Detect); Cocaine Screen Urine Not Detected (Not Detect); Fentanyl, urine Not Detected (Not Detect); Methadone Screen, Urine Not Detected (Not Detect); Opiate Screen Urine Not Detected (Not Detect); Oxycodone Screen Urine Not Detected (Not Detect); Phencyclidine Screen Urine Not Detected (Not Detect)
[2024-03-03 20:45] LABS: COVID-19 Test Negative (Negative); IDNOW Serial# 58CA691E
[2024-03-03] MEDS: clonazePAM 0.5 MG TABLET PO (21:21)
[2024-03-03] MEDS: ARIPiprazole 2 MG TABLET 1 MG PO (21:21)
--- NOTE | 2024-03-03 22:14 | PC.NURSE ---
Assumed care of pt at 1845. PT a/ox4, in no acute distress. Laying in bed watching tv, with ear plugs in bilateral ears. PT endorsing hopelessness and vague SI due to health issues. PT reports he has been dealing with tinnitus since 2021 have being diagnosed with covid and has a history of hashimotos, and HSV1. PT at one point was abusing prednisone in attempt to preserve his hearing but he believes it has only made with worse. 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 Notes that he has had a fulling life for 54 years and now feels that he is suffering and just wants to fall asleep and not wake up. He reports being home is too overwhelming- his believe he is experiencing psychosomatic symptoms and has asked him to try his hardest because of their kids. PT has a 19 year old daughter in college and a 13 year old son who he described as his best friend and the son has aspergers, but d/t tinnitus he is having difficulty talking with him and laughing like he has in the past. PT unable to live a fullfilling life and feels he that because it is not a illness that is seen, he does not receive understanding and help that a physical disability would bring. PT has sought the care of ENT, and functional medicine and feels both providers have not been helpful, and have prescribed medications that have only increased symptoms or jeopardized his hearing. Pt describes sound he is hearing as a whooshing. Pt does not have a plan, and states he is not going to kill himself and wouldnt even know how to but that he just wants to. Pt medicated as per JUN., Diet: gluten free d/t hashimotos, t/w provided gluten free snacks.
[2024-03-04 06:16] VITALS: BP 121/87; PULSE 65; RESP 16; TEMP 37.1; O2SAT 97
[2024-03-04] MEDS: Levothyroxine Sodium 75 MCG TABLET PO (06:18)
--- NOTE | 2024-03-04 07:05 | PC.NURSE ---
Assumed care of patient at 0645, patient appears to be in no apparent distress this am, calm and cooperative, eating breakfast, offering no complaints to this RN. Continue plan of care for CARE team rashaad
[2024-03-04] MEDS: clonazePAM 0.5 MG TABLET PO ×2 (08:14→20:23)
[2024-03-04] MEDS: Sertraline HCL 50 MG TABLET 150 MG PO (08:14)
--- NOTE | 2024-03-04 12:42 | PM.PSYCN ---
History of Present Illness Chief Complaint: SI HPI Past Psychiatric History: hosps: reports one prior, [facility] in 2021, after accidental steroid overdose SA: denies SIB: denies HIB: denies outpt: OCD. sees prescriber via telehealth. also has telehealth therapy 1-2x weekly. h/o zoloft up to 175 mg daily at one point, but over 100 mg daily for years. 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 . lives with , son (13), and daughter (18) in [place], [place]. on medical leave from his work. Trauma History: denies Diagnostics Vital Signs (24Hr): Vital Signs - 24 hr 03/03/24 16:31 03/03/24 16:44 03/04/24 06:16 Temperature 98.1 F 98.1 F 98.7 F Pulse Rate 86 86 65 Respiratory Rate 18 18 16 Blood Pressure 123/67 123/67 121/87 Pulse Oximetry 100 100 97 Oxygen Delivery Method Room Air Room Air Room Air BMI result Body Mass Index 27.2 Labs 03/03/24 17:48 03/03/24 17:48 Labs: Laboratory Results - last 48 hr 03/03/24 03/03/24 17:48 20:16 WBC 6.7 RBC 4.49 L Hgb 14.6 Hct 41.1 L MCV 91.5 MCH 32.5 MCHC 35.5 RDW 11.9 Plt Count 272 MPV 10.0 Immature Gran % (Auto) 0.1 Neut % (Auto) 65.9 Lymph % (Auto) 22.3 [place] % (Auto) 7.2 Eos % (Auto) 3.9 Baso % (Auto) 0.6 Lymph # (Auto) 1.5 [place] # (Auto) 0.5 Eos # (Auto) 0.3 Baso # (Auto) 0.0 Abs Immat Gran (auto) 0.01 Absolute Neuts (auto) 4.4 Absolute Nucleated RBC 0.000 Nucleated RBC % (auto) 0.0 Sodium 142 Potassium 3.7 Chloride 107 Carbon Dioxide 26 Anion Gap 13 BUN 6 L Creatinine 0.83 Estim Creat Clear Calc 98.4 Estimated GFR > 60 Random Glucose 82 Calcium 8.6 D Total Bilirubin 0.3 AST 22 ALT 31 Alkaline Phosphatase 93 Total Protein 6.5 Albumin 3.8 Urine Color Yellow Urine Appearance Clear Urine pH 7.5 Ur Specific [place] 1.010 Urine Protein Negative Urine Glucose (UA) Negative Urine Ketones Negative Urine Blood Negative Urine Nitrite Negative Ur Leukocyte Esterase Small (1+) H Urine RBC 0-2 Urine WBC 6-10 H Ur Squamous Epith Cells 0-2 Urine Bacteria None Seen Hyaline Casts 0-2 Salicylates < 5.0 L Urine Opiates Screen Not Detected Ur Buprenorphine Scrn Not Detected Ur Oxycodone Screen Not Detected Urine Methadone Screen Not Detected Urine Fentanyl Screen Not Detected Acetaminophen < 3 Ur Barbiturates Screen Not Detected Ur Phencyclidine Scrn Not Detected Ur Amphetamines Screen Not Detected U Benzodiazepines Scrn Not Detected Urine Cocaine Screen Not Detected U Marijuana (THC) Screen Not Detected Ethyl Alcohol < 10 COVID-19 (GELACIO) Negative COVID-19 Clin Com See Note Medications Medications Current Medications Aripiprazole (Aripiprazole 2 Mg Tablet) 1 mg PO BEDTIME [facility] Last Admin: 03/03/24 21:21 Dose: 1 mg Clonazepam (Clonazepam 0.5 Mg Tablet) 0.5 mg PO BID [facility] Last Admin: 03/04/24 08:14 Dose: 0.5 mg Levothyroxine Sodium (Levothyroxine Sodium 75 Mcg Tablet) 75 mcg PO DAILY@0600 [facility] Last Admin: 03/04/24 06:18 Dose: 75 mcg Sertraline HCl (Sertraline Hcl 50 Mg Tablet) 150 mg PO DAILY [facility] Last Admin: 03/04/24 08:14 Dose: 150 mg Allergies Allergies Allergy/AdvReac Type Severity Reaction Status Date / Time grass pollen Allergy Unknown Unknown Verified 03/03/24 16:37 david Allergy Unknown Unknown Verified 02/08/24 15:41 Peanut Butter Allergy Unknown Unknown Verified 02/08/24 15:41 Seasonal Allergies Allergy Unknown Unknown Verified 02/08/24 15:41 almonds Allergy Unknown Unknown Uncoded 08/03/22 13:43 pineapples Allergy Unknown Unknown Uncoded 08/03/22 13:43 Assessment & Plan Total time managing care of this patient today ____ minutes.
--- NOTE | 2024-03-04 15:20 | PC.NURSE ---
Pt remains calm and cooperative, offering no complaints to this RN. Aware of plan of care for inpatient bedsearch
[2024-03-04 16:07] VITALS: BP 120/76; PULSE 78; RESP 16; TEMP 37.1; O2SAT 97
[2024-03-04] MEDS: ARIPiprazole 2 MG TABLET 1 MG PO (20:23)
--- NOTE | 2024-03-05 05:29 | PC.NURSE ---
Patient slept through the night, no distress observed/reported, disposition per care team is section 12 in patient bed search, no behavior and safety concerns at this time, will continue to monitor.
[2024-03-05] MEDS: Levothyroxine Sodium 75 MCG TABLET PO (06:40)
[2024-03-05 06:44] VITALS: BP 125/88; PULSE 63; RESP 17; TEMP 36.7; O2SAT 97
--- NOTE | 2024-03-05 07:13 | PC.NURSE ---
Assumed care of patient at 0645, patient appears to be sleeping, respirations even and unlabored, no apparent distress noted. Continue plan of care for inpatient bedsearch
[2024-03-05] MEDS: Sertraline HCL 50 MG TABLET 150 MG PO (08:12)
[2024-03-05] MEDS: clonazePAM 0.5 MG TABLET PO ×2 (08:12→21:14)
[2024-03-05 09:54] VITALS: BP 108/77; PULSE 83; RESP 18; TEMP 36.5; O2SAT 98
[2024-03-05 10:17] VITALS: BMI 26.7
--- NOTE | 2024-03-05 13:14 | HO.PSYADMNOT ---
HPI Date of Service: 03/05/24 Chief Complaint: si depression anxiety Additional Sources of Information: chart reviewed pt seen HPI Subjective Notes: Conditional Voluntary Healthcare Proxy: No Guardianship: No Narrative: Pt seen in eval c/o severe tinnitus any sounds make it worse c/o severe burning pain with tinnitus had recent [facility] has not tried hearing aids fear will have worse hearing loss . Pt states very attached to son 13 daughter 19 in college very loyal loving mamadou has aspergers Pt has not made suiicide attempt has been thinking about killing himself pos fh uncle had ect pt with long hx ocd if I di something hell vs hehansn had cking rituals . The patient has felt increasingly despairing that he is having worsening hearing loss that is treatments will just make the hearing worse and that there is no good treatment for his noxious tinnitus and has had intermittent thoughts to hang himself walk into a train at times he feels he has no hope for any life for himself or any kind of future he denies currently plan or intent to do this but he does state that at times he feels detached from his family he does describe some improvement on sertraline currently at 150 mg he does feel his hearing has been getting progressively worse and is worried about any loud no including toilet flushing or any medication even very briefly it was could cause catastrophic hearing loss he has been on Abilify 1 mg has not been on Anafranil Patient did have recent psychiatric hospitalization here was discharged had evaluation [facility] did not feel supported had an admission to a respite type setting and had another negative reaction to the provider there and felt increasingly desperate Past Psychiatric History: hosps: reports one prior, [facility] in 2021, after accidental steroid overdose SA: denies SIB: denies HIB: denies outpt: OCD. sees prescriber via telehealth. also has telehealth therapy 1-2x weekly. h/o zoloft up to 175 mg daily at one point, but over 100 mg daily for years. 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 lives with , son (13), and daughter (18) in [place], [place]. on medical leave from his work. Trauma History: denies Diagnostics Vital Signs (24Hr): Vital Signs - 24 hr 03/04/24 16:07 03/05/24 06:44 03/05/24 09:54 Temperature 98.7 F 98.1 F 97.7 F Pulse Rate 78 63 83 Respiratory Rate 16 17 18 Blood Pressure 120/76 125/88 108/77 Pulse Oximetry 97 97 98 Oxygen Delivery Method Room Air Room Air Room Air BMI result Body Mass Index 26.7 Labs 03/03/24 17:48 03/03/24 17:48 Labs: Laboratory Results - last 48 hr 03/03/24 03/03/24 17:48 20:16 WBC 6.7 RBC 4.49 L Hgb 14.6 Hct 41.1 L MCV 91.5 MCH 32.5 MCHC 35.5 RDW 11.9 Plt Count 272 MPV 10.0 Immature Gran % (Auto) 0.1 Neut % (Auto) 65.9 Lymph % (Auto) 22.3 [place] % (Auto) 7.2 Eos % (Auto) 3.9 Baso % (Auto) 0.6 Lymph # (Auto) 1.5 [place] # (Auto) 0.5 Eos # (Auto) 0.3 Baso # (Auto) 0.0 Abs Immat Gran (auto) 0.01 Absolute Neuts (auto) 4.4 Absolute Nucleated RBC 0.000 Nucleated RBC % (auto) 0.0 Sodium 142 Potassium 3.7 Chloride 107 Carbon Dioxide 26 Anion Gap 13 BUN 6 L Creatinine 0.83 Estim Creat Clear Calc 98.4 Estimated GFR > 60 Random Glucose 82 Calcium 8.6 D Total Bilirubin 0.3 AST 22 ALT 31 Alkaline Phosphatase 93 Total Protein 6.5 Albumin 3.8 Urine Color Yellow Urine Appearance Clear Urine pH 7.5 Ur Specific [place] 1.010 Urine Protein Negative Urine Glucose (UA) Negative Urine Ketones Negative Urine Blood Negative Urine Nitrite Negative Ur Leukocyte Esterase Small (1+) H Urine RBC 0-2 Urine WBC 6-10 H Ur Squamous Epith Cells 0-2 Urine Bacteria None Seen Hyaline Casts 0-2 Salicylates < 5.0 L Urine Opiates Screen Not Detected Ur Buprenorphine Scrn Not Detected Ur Oxycodone Screen Not Detected Urine Methadone Screen Not Detected Urine Fentanyl Screen Not Detected Acetaminophen < 3 Ur Barbiturates Screen Not Detected Ur Phencyclidine Scrn Not Detected Ur Amphetamines Screen Not Detected U Benzodiazepines Scrn Not Detected Urine Cocaine Screen Not Detected U Marijuana (THC) Screen Not Detected Ethyl Alcohol < 10 COVID-19 (G[facility]ACIO) Negative COVID-19 Clin Com See Note Meds/Allergies Meds Home Medications ?Medication ?Instructions ?Recorded ?Confirmed ?Type levothyroxine 75 mcg tablet 75 mcg PO DAILY@0600 02/08/24 03/03/24 History aripiprazole 2 mg tablet 1 mg PO BEDTIME 03/03/24 03/03/24 History clonazepam 0.5 mg tablet 0.5 mg PO BID 03/03/24 03/03/24 History sertraline 100 mg tablet 150 mg PO DAILY 03/03/24 03/03/24 History prednisone 10 mg tablet PO 03/05/24 History quetiapine 100 mg tablet 100 mg PO BEDTIME PRN insomnia 03/05/24 History Allergies Allergies Allergy/AdvReac Type Severity Reaction Status Date / Time grass pollen Allergy Unknown Unknown Verified 03/03/24 16:37 david Allergy Unknown Unknown Verified 02/08/24 15:41 Peanut Butter Allergy Unknown Unknown Verified 02/08/24 15:41 Seasonal Allergies Allergy Unknown Unknown Verified 02/08/24 15:41 almonds Allergy Unknown Unknown Uncoded 08/03/22 13:43 pineapples Allergy Unknown Unknown Uncoded 08/03/22 13:43 Mental Status Exam Mental Status Exam Narrative: Patient was casually dressed reasonably groomed cooperative to interview good eye contact. no PMA/PMR. Speech was unremarkable content focused on hopelessness helpless thoughts he would be most likely better off and the difficulty he sees in ever feeling better. thoughts linear and variably logical. overvalued ideas bordering on delusional in relation to his treatment his hear loss his tendonitis his hyperacusis. affect constricted, hyper-intense, non-labile. mood anxious. Hopelessness helplessness described thoughts at times not able to see any future in has thoughts of hanging himself for letting a train run into him denies active plan at this time Assessment & Plan Assessment & Plan (1) OCD (obsessive compulsive disorder): Status: Acute Code(s): F42.9 - Obsessive-compulsive disorder, unspecified (2) MDD (major depressive disorder), recurrent episode: Status: Acute Qualifiers: Major depression episode severity: severe Code(s): F33.9 - Major depressive disorder, recurrent, unspecified (3) Illness anxiety disorder: Status: Acute Code(s): 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 (4) Clicking tinnitus of both ears: Status: Acute Code(s): H93.13 - Tinnitus, bilateral Plan Patient anxious depressed rational hopeless helpless ruminating and obsessional focused on his hearings things that can affect hearing what might impact his hearing fears about hearing loss inferior of catastrophic change leading to suicidality it is somewhat difficult for patient to way information regarding this and he is open to the possibility of Anafranil trial we also discussed low-dose amitriptyline trial and that all the wall antidepressants can actually increase tinnitus there is literature on the use particularly of tricyclics and a that may be helpful may help decrease patient's anxiety and obsessional ruminating at present continue sertraline 150 mg clonazepam Abilify might benefit from increase ck labs ekg see if ent records can be reviewed [facility] ? contributibg factors might benefit from php Patient educated on: diagnosis, medication risk/benefits, therapeutic strategies and medical condition Informed Consent: further education needed Reason for continued inpatient stay Substantial Risk for: harm to self, inability to function and rapid decompensation Statement Statement: I have reviewed the history and physical and performed a pertinent examination on my patient. No changes have occurred unless specified. If the History and Physical was not performed prior to admission, the Hospitalist's service will be consulted for completing the admission physical. Time Spent With Patient Time: Total time managing care of this patient today ____ minutes.
--- NOTE | 2024-03-05 14:17 | PC.ADMIT ---
Bill was admitted to from [facility] on 03/05/24 at 0953 on a CV for treatment of MDD, pattie and OCD. The precipitant to admission includes a chronic issue of tinnitus and some hearing impairment which have not improved since his last admission. He states that he did go to his ENT appointment and they told him he has some minor hearing loss that may be corrected by wearing hearing aids. He is calm and cooperative during admission assessment and states that he feels hopeless. He reports that, although he does not have active SI with a plan, he feels like it would be better if he were not here anymore. He states that he had thoughts of jumping off a bridge or from a building top but those were both too scary and that is why he hasn't done it yet. He also reports having two kids at home (13 and 19) who he fears would be traumatized by him no longer being alive. His mood is sad and his affect is congruent with his mood. Other than the ringing in his ears, he denies AVH along with active SI and HI. His thought process is linear and his focus is intact. He reports poor sleep due to the ringing in his ears. He denies substance use and his tox screen was negative for all substances. He has no other medical issues or concerns and offers no other complaints. He has no goals for this admission stating I don't know that being here will help me. Skin check completed by PARMJIT and Justine Ibanez RN, he has a bruise on his great right toe from kicking the wall a while ago. He was placed on 15 minute checks for safety.
[2024-03-05 19:58] VITALS: BP 130/75; PULSE 66; RESP 14; TEMP 36.8; O2SAT 99
[2024-03-05] MEDS: ARIPiprazole 2 MG TABLET 1 MG PO (21:15)
[2024-03-06] MEDS: Levothyroxine Sodium 75 MCG TABLET PO (06:37)
[2024-03-06 07:40] VITALS: BP 101/55; PULSE 58; RESP 18; TEMP 36.7; O2SAT 97
[2024-03-06 09:03] LABS: Alanine Aminotransferase 45 U/L (0-40); Albumin Level 4.1 g/dL (3.5-5.0); Alkaline Phosphatase 103 U/L (39-117); Anion Gap 10 (12-20); Aspartate Amino Transferase 27 U/L (5-37); Bilirubin Total 0.5 mg/dL (0.0-1.0); Blood Urea Nitrogen 10 mg/dL (9-16); Calcium 9.2 mg/dL (8.4-10.2); Carbon Dioxide 33 mmol/L (22-29); Chloride 103 mmol/L (96-108); Cholesterol 250 mg/dL (<200); Creatinine Clr Calc Pharmacy 82.5; Estimated Glomerular Filt Rate > 60; Glucose Fasting 99 mg/dL (60-99); HDL Cholesterol 49 mg/dL (>40); LDL Cholesterol Calculated 171 mg/dL (<100); Potassium 4.4 mmol/L (3.3-5.1); Sodium 142 mmol/L (135-145); Triglycerides 152 mg/dL (<150)
[2024-03-06] MEDS: Sertraline HCL 50 MG TABLET 150 MG PO (09:04)
[2024-03-06] MEDS: clonazePAM 0.5 MG TABLET PO ×2 (09:04→20:53)
[2024-03-06 19:45] VITALS: BP 139/74; PULSE 66; RESP 18; TEMP 36.9; O2SAT 96
[2024-03-07] MEDS: Levothyroxine Sodium 75 MCG TABLET PO (06:30)
[2024-03-07 07:00] VITALS: BMI 26.9
[2024-03-07] MEDS: clonazePAM 0.5 MG TABLET PO ×2 (08:49→20:46)
[2024-03-07] MEDS: Sertraline HCL 50 MG TABLET 150 MG PO (08:49)
[2024-03-07 08:55] VITALS: BP 114/70; PULSE 57; RESP 14; TEMP 36.7; O2SAT 99
--- NOTE | 2024-03-07 10:04 | HO.PSYCHPN ---
Subjective Subjective Date of Service: 03/07/24 Reason For Visit: si depression anxiety Subjective Notes: Conditional Voluntary Interim History: Pt continues to report feeling depressed and anxious ; pt stated, I'm depressed because I feel like I'm going deaf. I wish I wasn't alive but the acute need to do it is not as strong . Pt reports suicidal ideation with no plan. denies HI/VH/AH. keeping to self. writing in journal. Medication Compliance: Yes Side effects from medications: No Review of Systems Constitutional: Reports as per HPI Eyes: Reports as per HPI Reports as per HPI Cardiovascular: Reports as per HPI Respiratory: Reports as per HPI Gastrointestinal: Reports as per HPI Genitourinary: Reports as per HPI Musculoskeletal: Reports as per HPI Skin/Breast: Reports as per HPI Reports as per HPI Psychiatric: Reports as per HPI Endocrine: Reports as per HPI Hematologic/Lymphatic: Reports as per HPI Allergic/Immunologic: Reports as per HPI Mental Status Exam Mental Status Exam Narrative: Pt is alert and oriented; behavior is cooperative; dressed in casual attire; mood is described as anxious and depressed ; eye contact appropriate; Speech is normal rate, volume and not pressured; thought process is organized and goal directed; Thought content is on tx; denies HI/VH/AH. Pt reports suicidal ideation with no plan. Diagnostics Vital Signs (24Hr): Vital Signs - 24 hr 03/06/24 19:45 03/07/24 08:55 Temperature 98.5 F 98.0 F Pulse Rate 66 57 Respiratory Rate 18 14 Blood Pressure 139/74 114/70 Pulse Oximetry 96 99 Oxygen Delivery Method Room Air Room Air BMI result Body Mass Index 26.7 Labs 03/03/24 17:48 03/06/24 08:25 Labs: Laboratory Results - last 48 hr 03/06/24 08:25 Sodium 142 Potassium 4.4 Chloride 103 Carbon Dioxide 33 H Anion Gap 10 L BUN 10 Creatinine 0.99 Estim Creat Clear Calc 82.5 Estimated GFR > 60 Fasting Glucose 99 Calcium 9.2 D Total Bilirubin 0.5 AST 27 ALT 45 H Alkaline Phosphatase 103 Total Protein 7.0 Albumin 4.1 Triglycerides 152 H Cholesterol 250 H LDL Cholesterol, Calc 171 H HDL Cholesterol 49 Medications Medications Current Medications Acetaminophen (Acetaminophen 325 Mg Tablet) 650 mg PO Q6H PRN PRN Reason: Headache/Pain Mild Scale (1-3) Al Hydroxide/Mg Hydroxide (Magnesium Hydrox/Alum Hydrox 30 Ml Oral.Susp) 30 ml PO Q6H PRN PRN Reason: Heartburn/Nausea Aripiprazole (Aripiprazole 2 Mg Tablet) 1 mg PO BEDTIME [facility] Last Admin: 03/06/24 21:19 Dose: Not Given Clonazepam (Clonazepam 0.5 Mg Tablet) 0.5 mg PO BID [facility] Last Admin: 03/07/24 08:49 Dose: 0.5 mg Hydroxyzine HCl (Hydroxyzine Hcl 25 Mg Tablet) 25 mg PO Q6H PRN PRN Reason: Anxiety Levothyroxine Sodium (Levothyroxine Sodium 75 Mcg Tablet) 75 mcg PO DAILY@0600 [facility] Last Admin: 03/07/24 06:30 Dose: 75 mcg Magnesium Hydroxide (Milk Of Magnesia 30 Ml Oral.Susp) 30 ml PO DAILY PRN PRN Reason: Constipation Sertraline HCl (Sertraline Hcl 50 Mg Tablet) 150 mg PO DAILY [facility] Last Admin: 03/07/24 08:49 Dose: 150 mg Trazodone HCl (Trazodone Hcl 50 Mg Tablet) 50 mg PO BEDTIME [facility] PRN PRN Reason: Insomnia Allergies Allergies Allergy/AdvReac Type Severity Reaction Status Date / Time grass pollen Allergy Unknown Unknown Verified 03/03/24 16:37 david Allergy Unknown Unknown Verified 02/08/24 15:41 Peanut Butter Allergy Unknown Unknown Verified 02/08/24 15:41 Seasonal Allergies Allergy Unknown Unknown Verified 02/08/24 15:41 almonds Allergy Unknown Unknown Uncoded 08/03/22 13:43 pineapples Allergy Unknown Unknown Uncoded 08/03/22 13:43 Assessment & Plan Assessment & Plan (1) OCD (obsessive compulsive disorder): Status: Acute Code(s): F42.9 - Obsessive-compulsive disorder, unspecified (2) MDD (major depressive disorder), recurrent episode: Qualifiers: Major depression episode severity: severe Status: Acute Code(s): F33.9 - Major depressive disorder, recurrent, unspecified (3) Illness anxiety disorder: Status: Acute Code(s): 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 (4) Clicking tinnitus of both ears: Status: Acute Code(s): H93.13 - Tinnitus, bilateral Plan Patient anxious depressed rational hopeless helpless ruminating and obsessional focused on his hearings things that can affect hearing what might impact his hearing fears about hearing loss inferior of catastrophic change leading to suicidality it is somewhat difficult for patient to way information regarding this and he is open to the possibility of Anafranil trial we also discussed low-dose amitriptyline trial and that all the wall antidepressants can actually increase tinnitus there is literature on the use particularly of tricyclics and a that may be helpful may help decrease patient's anxiety and obsessional ruminating at present continue sertraline 150 mg clonazepam Abilify might benefit from increase ck labs ekg see if ent records can be reviewed for [facility] family sitauation ? contributibg factors might benefit from php 03/07: Pt continues to report feeling depressed and anxious ; pt stated, I'm depressed because I feel like I'm going deaf. I wish I wasn't alive but the acute need to do it is not as strong . Pt reports suicidal ideation with no plan. denies HI/VH/AH. keeping to self. writing in journal. Patient educated on: diagnosis, medication risk/benefits and therapeutic strategies Reason for continued inpatient stay Substantial Risk for: harm to self and med/psych decompensation Time Spent With Patient Time: Total time managing care of this patient today _20___ minutes.
[2024-03-07 19:20] VITALS: BP 116/63; PULSE 69; RESP 12; TEMP 36.4; O2SAT 97
[2024-03-08] MEDS: Levothyroxine Sodium 75 MCG TABLET PO (06:20)
[2024-03-08 07:37] VITALS: BP 109/64; PULSE 52; RESP 16; TEMP 36.9; O2SAT 98
[2024-03-08] MEDS: Sertraline HCL 50 MG TABLET 150 MG PO (08:34)
[2024-03-08] MEDS: clonazePAM 0.5 MG TABLET PO ×2 (08:35→20:24)
[2024-03-08 09:00] LABS: Cholesterol 241 mg/dL (<200); HDL Cholesterol 48 mg/dL (>40); LDL Cholesterol Calculated 171 mg/dL (<100); Triglycerides 113 mg/dL (<150)
--- NOTE | 2024-03-08 14:44 | HO.PSYCHPN ---
Subjective Subjective Date of Service: 03/08/24 Reason For Visit: si depression anxiety Subjective Notes: Conditional Voluntary Interim History: Pt continues to report feeling depressed and anxious ; pt stated, the ringing is getting worse. I'm worried if I get a hearing aid, it'll help at first then it won't . Pt reports suicidal ideation with no plan; pt stated, I'm feeling suicidal but I don't want to do something and traumatize my son . denies HI/VH/AH. pt reports sleeping well. Medication Compliance: Yes Attending Groups: Intermittent Review of Systems Constitutional: Reports as per HPI Eyes: Reports as per HPI Reports as per HPI Cardiovascular: Reports as per HPI Respiratory: Reports as per HPI Gastrointestinal: Reports as per HPI Genitourinary: Reports as per HPI Musculoskeletal: Reports as per HPI Skin/Breast: Reports as per HPI Reports as per HPI Psychiatric: Reports as per HPI Endocrine: Reports as per HPI Hematologic/Lymphatic: Reports as per HPI Allergic/Immunologic: Reports as per HPI Mental Status Exam Mental Status Exam Narrative: Pt is alert and oriented; behavior is cooperative; dressed in casual attire; mood is described as anxious and depressed ; eye contact appropriate; Speech is normal rate, volume and not pressured; thought process is organized and goal directed; Thought content is on tx and hearing loss; denies HI/VH/AH. Pt reports suicidal ideation with no plan. Diagnostics Vital Signs (24Hr): Vital Signs - 24 hr 03/07/24 19:20 03/08/24 07:37 Temperature 97.6 F 98.5 F Pulse Rate 69 52 Respiratory Rate 12 16 Blood Pressure 116/63 109/64 Pulse Oximetry 97 98 Oxygen Delivery Method Room Air Room Air BMI result Body Mass Index 26.9 Labs 03/03/24 17:48 03/06/24 08:25 Labs: Laboratory Results - last 48 hr 03/08/24 08:28 Triglycerides 113 Cholesterol 241 H LDL Cholesterol, Calc 171 H HDL Cholesterol 48 Medications Medications Current Medications Acetaminophen (Acetaminophen 325 Mg Tablet) 650 mg PO Q6H PRN PRN Reason: Headache/Pain Mild Scale (1-3) Al Hydroxide/Mg Hydroxide (Magnesium Hydrox/Alum Hydrox 30 Ml Oral.Susp) 30 ml PO Q6H PRN PRN Reason: Heartburn/Nausea Aripiprazole (Aripiprazole 2 Mg Tablet) 1 mg PO BEDTIME [facility] Last Admin: 03/07/24 20:48 Dose: Not Given Clonazepam (Clonazepam 0.5 Mg Tablet) 0.5 mg PO BID [facility] Last Admin: 03/08/24 08:35 Dose: 0.5 mg Hydroxyzine HCl (Hydroxyzine Hcl 25 Mg Tablet) 25 mg PO Q6H PRN PRN Reason: Anxiety Levothyroxine Sodium (Levothyroxine Sodium 75 Mcg Tablet) 75 mcg PO DAILY@0600 [facility] Last Admin: 03/08/24 06:20 Dose: 75 mcg Magnesium Hydroxide (Milk Of Magnesia 30 Ml Oral.Susp) 30 ml PO DAILY PRN PRN Reason: Constipation Sertraline HCl (Sertraline Hcl 50 Mg Tablet) 150 mg PO DAILY [facility] Last Admin: 03/08/24 08:34 Dose: 150 mg Trazodone HCl (Trazodone Hcl 50 Mg Tablet) 50 mg PO BEDTIME MRX1 PRN PRN Reason: Insomnia Allergies Allergies Allergy/AdvReac Type Severity Reaction Status Date / Time grass pollen Allergy Unknown Unknown Verified 03/03/24 16:37 david Allergy Unknown Unknown Verified 02/08/24 15:41 Peanut Butter Allergy Unknown Unknown Verified 02/08/24 15:41 Seasonal Allergies Allergy Unknown Unknown Verified 02/08/24 15:41 almonds Allergy Unknown Unknown Uncoded 08/03/22 13:43 pineapples Allergy Unknown Unknown Uncoded 08/03/22 13:43 Assessment & Plan Assessment & Plan (1) OCD (obsessive compulsive disorder): Status: Acute Code(s): F42.9 - Obsessive-compulsive disorder, unspecified (2) MDD (major depressive disorder), recurrent episode: Qualifiers: Major depression episode severity: severe Status: Acute Code(s): F33.9 - Major depressive disorder, recurrent, unspecified (3) Illness anxiety disorder: Status: Acute Code(s): 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 (4) Clicking tinnitus of both ears: Status: Acute Code(s): H93.13 - Tinnitus, bilateral Plan Patient anxious depressed rational hopeless helpless ruminating and obsessional focused on his hearings things that can affect hearing what might impact his hearing fears about hearing loss inferior of catastrophic change leading to suicidality it is somewhat difficult for patient to way information regarding this and he is open to the possibility of Anafranil trial we also discussed low-dose amitriptyline trial and that all the wall antidepressants can actually increase tinnitus there is literature on the use particularly of tricyclics and a that may be helpful may help decrease patient's anxiety and obsessional ruminating at present continue sertraline 150 mg clonazepam Abilify might benefit from increase ck labs ekg see if ent records can be reviewed sw for [facility] family sitauation ? contributibg factors might benefit from php 03/07: Pt continues to report feeling depressed and anxious ; pt stated, I'm depressed because I feel like I'm going deaf. I wish I wasn't alive but the acute need to do it is not as strong . Pt reports suicidal ideation with no plan. denies HI/VH/AH. keeping to self. writing in journal. 03/08: pt stated, the ringing is getting worse. I'm worried if I get a hearing aid, it'll help at first then it won't . Pt reports suicidal ideation with no plan; pt stated, I'm feeling suicidal but I don't want to do something and traumatize my son . denies HI/VH/AH. pt reports sleeping well. Patient educated on: diagnosis, medication risk/benefits and therapeutic strategies Reason for continued inpatient stay Substantial Risk for: harm to self and med/psych decompensation Time Spent With Patient Time: Total time managing care of this patient today _20___ minutes.
--- NOTE | 2024-03-08 15:27 | PM.EVENT ---
Event Note Date of Service: 03/08/24 Event Note: Patient is a 53-year-old male admitted to [facility] for feelings of hopelessness and vague SI. Hospitalist consult for hyperlipidemia. Lipid panel from 03/08/2024 showed mildly elevated cholesterol at 241 and LDL at 171. Patient would qualify for a moderate intensity statin. However, we normally do not start patients from inpatient psychiatry on statins, instead have them followup outpatient with PCP to prescribe medication and monitor lipid profile in 6 weeks and LFTs in 3 months after initiation. If pt regularly sees PCP in the community, you can consider starting on atorvastatin 20mg daily and pt should follow up in 6 weeks for labs. If pt does not have a PCP and/or has difficulty with outpatient followup, would not suggest starting on statin. Pt can instead attempt lifestyle changes such as low-fat diet and exercise. Time Spent With Patient Time: Total time managing care of this patient today ____ minutes.
[2024-03-08 20:00] VITALS: BP 121/74; PULSE 69; RESP 14; TEMP 36.8; O2SAT 97
[2024-03-09] MEDS: Levothyroxine Sodium 75 MCG TABLET PO (06:01)
[2024-03-09 07:25] VITALS: BP 107/65; PULSE 51; RESP 12; TEMP 36.4; O2SAT 97
--- NOTE | 2024-03-09 08:31 | P.PNPSI_ITS ---
Subjective Subjective Date of Service: 03/09/24 Reason For Visit: si depression anxiety Subjective Notes: Conditional Voluntary Interim History: The nursing staff reported the hospitalist saw him yesterday and apparently his cholesterol was high but needs to be followed by Medicare physician. He was seen eating well medication compliant going to groups denies suicidal ideation. He reported that Abilify could make him hypotensive and that is why he refused last night. He slept 8 hours he reported on interview not feeling very well. Unable to elaborate what was from. Mental Status Exam Mental Status Exam Patient Appearance: Well Grooomed Patient Orientation: Person and Situation Level of Consciousness: Awake and Appropriate Patient Behavior: Guarded and Passive Mood Description: Calm Affect Description: Constricted Patient Cognition Impaired: Yes Ability to Follow Directions: Good Speech Pattern: Clear Hallucinations: None Delusions: Not Present Thought Process: Distracted and Slowed Thinking Thought Content: positive for [place] and positive for Circumstantial Judgement: Fair Diagnostics Vital Signs (24Hr): Vital Signs - 24 hr 03/08/24 20:00 03/09/24 07:25 Temperature 98.2 F 97.6 F Pulse Rate 69 51 Respiratory Rate 14 12 Blood Pressure 121/74 107/65 Pulse Oximetry 97 97 Oxygen Delivery Method Room Air Room Air BMI result Body Mass Index 26.9 Labs 03/03/24 17:48 03/06/24 08:25 Labs: Laboratory Results - last 48 hr 03/08/24 08:28 Triglycerides 113 Cholesterol 241 H LDL Cholesterol, Calc 171 H HDL Cholesterol 48 Medications Medications Current Medications Acetaminophen (Acetaminophen 325 Mg Tablet) 650 mg PO Q6H PRN PRN Reason: Headache/Pain Mild Scale (1-3) Al Hydroxide/Mg Hydroxide (Magnesium Hydrox/Alum Hydrox 30 Ml Oral.Susp) 30 ml PO Q6H PRN PRN Reason: Heartburn/Nausea Aripiprazole (Aripiprazole 2 Mg Tablet) 1 mg PO BEDTIME COUNTS [facility]CLUDE [facility] BEDS AT [facility] Last Admin: 03/08/24 20:28 Dose: Not Given Clonazepam (Clonazepam 0.5 Mg Tablet) 0.5 mg PO BID COUNTS [facility]CLUDE 234 BEDS AT THE [facility] Last Admin: 03/08/24 20:24 Dose: 0.5 mg Hydroxyzine HCl (Hydroxyzine Hcl 25 Mg Tablet) 25 mg PO Q6H PRN PRN Reason: Anxiety Levothyroxine Sodium (Levothyroxine Sodium 75 Mcg Tablet) 75 mcg PO DAILY@0600 [facility]S [facility] 234 BEDS AT [facility] Last Admin: 03/09/24 06:01 Dose: 75 mcg Magnesium Hydroxide (Milk Of Magnesia 30 Ml Oral.Susp) 30 ml PO DAILY PRN PRN Reason: Constipation Sertraline HCl (Sertraline Hcl 50 Mg Tablet) 150 mg PO DAILY COUNTS INCLUDE 234 BEDS AT [facility] Last Admin: 03/08/24 08:34 Dose: 150 mg Trazodone HCl (Trazodone Hcl 50 Mg Tablet) 50 mg PO BEDTIME MRX1 PRN PRN Reason: Insomnia Allergies Allergies Allergy/AdvReac Type Severity Reaction Status Date / Time grass pollen Allergy Unknown Unknown Verified 03/03/24 16:37 david Allergy Unknown Unknown Verified 02/08/24 15:41 Peanut Butter Allergy Unknown Unknown Verified 02/08/24 15:41 Seasonal Allergies Allergy Unknown Unknown Verified 02/08/24 15:41 almonds Allergy Unknown Unknown Uncoded 08/03/22 13:43 pineapples Allergy Unknown Unknown Uncoded 08/03/22 13:43 Assessment & Plan Assessment & Plan (1) OCD (obsessive compulsive disorder): Status: Acute Code(s): F42.9 - Obsessive-compulsive disorder, unspecified (2) MDD (major depressive disorder), recurrent episode: Qualifiers: Major depression episode severity: severe Status: Acute Code(s): F33.9 - Major depressive disorder, recurrent, unspecified (3) Illness anxiety disorder: Status: Acute Code(s): 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 (4) Clicking tinnitus of both ears: Status: Acute Code(s): H93.13 - Tinnitus, bilateral Plan Patient anxious depressed rational hopeless helpless ruminating and obsessional focused on his hearings things that can affect hearing what might impact his hearing fears about hearing loss inferior of catastrophic change leading to suicidality it is somewhat difficult for patient to way information regarding this and he is open to the possibility of Anafranil trial we also discussed low- dose amitriptyline trial and that all the wall antidepressants can actually increase tinnitus there is literature on the use particularly of tricyclics and a that may be helpful may help decrease patient's anxiety and obsessional ruminating at present continue sertraline 150 mg clonazepam Abilify might benefit from increase ck labs ekg see if ent records can be reviewed sw for [facility] family sitauation ? contributibg factors might benefit from php 03/07: Pt continues to report feeling depressed and anxious ; pt stated, I'm depressed because I feel like I'm going deaf. I wish I wasn't alive but the acute need to do it is not as strong . Pt reports suicidal ideation with no plan. denies HI/VH/AH. keeping to self. writing in journal. 03/08: pt stated, the ringing is getting worse. I'm worried if I get a hearing aid, it'll help at first then it won't . Pt reports suicidal ideation with no plan; pt stated, I'm feeling suicidal but I don't want to do something and traumatize my son . denies HI/VH/AH. pt reports sleeping well. 03/09 the patient reports still feeling dysphoric. Slept 8 hours. Continue same treatment Reason for continued inpatient stay Substantial Risk for: inability to function, rapid decompensation and med/psych decompensation Time Spent With Patient Time: Total time managing care of this patient today __20__ minutes.
[2024-03-09] MEDS: Sertraline HCL 50 MG TABLET 150 MG PO (08:48)
[2024-03-09] MEDS: clonazePAM 0.5 MG TABLET PO ×2 (08:49→20:25)
[2024-03-09 20:00] VITALS: BP 111/61; PULSE 89; RESP 16; TEMP 37; O2SAT 98
[2024-03-10] MEDS: Levothyroxine Sodium 75 MCG TABLET PO (06:10)
[2024-03-10 07:35] VITALS: BP 96/61; PULSE 66; RESP 14; TEMP 36.6; O2SAT 97
[2024-03-10] MEDS: clonazePAM 0.5 MG TABLET PO ×2 (08:26→20:24)
[2024-03-10] MEDS: Sertraline HCL 50 MG TABLET 150 MG PO (08:26)
--- NOTE | 2024-03-10 08:48 | HO.PSYCHPN ---
Subjective Subjective Date of Service: 03/10/24 Reason For Visit: si depression anxiety Subjective Notes: [place] Order Interim History: The nursing staff reported the patient had been flat, negative, he disclosed to the staff that is Zoloft is too much and interfering with his levothyroxine. He slept 6 hours. On interview the patient wanted to be recheck his thyroid function tests. I am ordering at [facility]SH for tomorrow a.m. Mental Status Exam Mental Status Exam Patient Appearance: Well Grooomed and Appropriate Patient Orientation: Person and Situation Level of Consciousness: Awake Patient Behavior: Guarded and Passive Mood Description: Withdrawn Affect Description: Constricted Patient Cognition Impaired: Yes Ability to Follow Directions: Good Speech Pattern: Clear Hallucinations: None Delusions: Not Present Thought Process: Distracted and Slowed Thinking Thought Content: positive for [place] and positive for Poverty of Content Judgement: Fair Diagnostics Vital Signs (24Hr): Vital Signs - 24 hr 03/09/24 20:00 03/10/24 07:35 Temperature 98.6 F 97.8 F Pulse Rate 89 66 Respiratory Rate 16 14 Blood Pressure 111/61 96/61 Pulse Oximetry 98 97 Oxygen Delivery Method Room Air Room Air BMI result Body Mass Index 26.9 Labs 03/03/24 17:48 03/06/24 08:25 Labs: Laboratory Results - last 48 hr 03/08/24 08:28 Triglycerides 113 Cholesterol 241 H LDL Cholesterol, Calc 171 H HDL Cholesterol 48 Medications Medications Current Medications Acetaminophen (Acetaminophen 325 Mg Tablet) 650 mg PO Q6H PRN PRN Reason: Headache/Pain Mild Scale (1-3) Al Hydroxide/Mg Hydroxide (Magnesium Hydrox/Alum Hydrox 30 Ml Oral.Susp) 30 ml PO Q6H PRN PRN Reason: Heartburn/Nausea Aripiprazole (Aripiprazole 2 Mg Tablet) 1 mg PO BEDTIME [facility] Last Admin: 03/09/24 20:31 Dose: Not Given Clonazepam (Clonazepam 0.5 Mg Tablet) 0.5 mg PO BID [facility] Last Admin: 03/10/24 08:26 Dose: 0.5 mg Hydroxyzine HCl (Hydroxyzine Hcl 25 Mg Tablet) 25 mg PO Q6H PRN PRN Reason: Anxiety Levothyroxine Sodium (Levothyroxine Sodium 75 Mcg Tablet) 75 mcg PO DAILY@0600 [facility] Last Admin: 03/10/24 06:10 Dose: 75 mcg Magnesium Hydroxide (Milk Of Magnesia 30 Ml Oral.Susp) 30 ml PO DAILY PRN PRN Reason: Constipation Sertraline HCl (Sertraline Hcl 50 Mg Tablet) 150 mg PO DAILY [facility] Last Admin: 03/10/24 08:26 Dose: 150 mg Trazodone HCl (Trazodone Hcl 50 Mg Tablet) 50 mg PO BEDTIME MRX1 PRN PRN Reason: Insomnia Allergies Allergies Allergy/AdvReac Type Severity Reaction Status Date / Time grass pollen Allergy Unknown Unknown Verified 03/03/24 16:37 david Allergy Unknown Unknown Verified 02/08/24 15:41 Peanut Butter Allergy Unknown Unknown Verified 02/08/24 15:41 Seasonal Allergies Allergy Unknown Unknown Verified 02/08/24 15:41 almonds Allergy Unknown Unknown Uncoded 08/03/22 13:43 pineapples Allergy Unknown Unknown Uncoded 08/03/22 13:43 Assessment & Plan Assessment & Plan (1) OCD (obsessive compulsive disorder): Status: Acute Code(s): F42.9 - Obsessive-compulsive disorder, unspecified (2) MDD (major depressive disorder), recurrent episode: Qualifiers: Major depression episode severity: severe Status: Acute Code(s): F33.9 - Major depressive disorder, recurrent, unspecified (3) Illness anxiety disorder: Status: Acute Code(s): 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 (4) Clicking tinnitus of both ears: Status: Acute Code(s): H93.13 - Tinnitus, bilateral Plan Patient anxious depressed rational hopeless helpless ruminating and obsessional focused on his hearings things that can affect hearing what might impact his hearing fears about hearing loss inferior of catastrophic change leading to suicidality it is somewhat difficult for patient to way information regarding this and he is open to the possibility of Anafranil trial we also discussed low-dose amitriptyline trial and that all the wall antidepressants can actually increase tinnitus there is literature on the use particularly of tricyclics and a that may be helpful may help decrease patient's anxiety and obsessional ruminating at present continue sertraline 150 mg clonazepam Abilify might benefit from increase ck labs ekg see if ent records can be reviewed sw for [facility] family sitauation ? contributibg factors might benefit from php 03/07: Pt continues to report feeling depressed and anxious ; pt stated, I'm depressed because I feel like I'm going deaf. I wish I wasn't alive but the acute need to do it is not as strong . Pt reports suicidal ideation with no plan. denies HI/VH/AH. keeping to self. writing in journal. 03/08: pt stated, the ringing is getting worse. I'm worried if I get a hearing aid, it'll help at first then it won't . Pt reports suicidal ideation with no plan; pt stated, I'm feeling suicidal but I don't want to do something and traumatize my son . denies HI/VH/AH. pt reports sleeping well. 03/09 the patient reports still feeling dysphoric. Slept 8 hours. Continue same treatment. 03/10 TSH for tomorrow morning. Continue same treatment. Reason for continued inpatient stay Substantial Risk for: inability to function, rapid decompensation and med/psych decompensation Time Spent With Patient Time: Total time managing care of this patient today __20__ minutes.
--- NOTE | 2024-03-10 15:43 | PC.NURSE ---
During morning med pass, pt attempted to hide 1 zoloft tablet. This proposal manager writer saw him, and came around to the other side of the bed to get a closer look at what he was doing. When this proposal manager writer came around to the other side, pt stated that he was doing an experiment, to see if taking less zoloft would make the ringing in his ears stop . This proposal manager writer educated patient on simply asking for less medication, and not hiding it, and the concerns with that action. Pt stated understanding and then took the tablet that he had attempted to hide.
[2024-03-10 20:20] VITALS: BP 125/75; PULSE 80; RESP 14; TEMP 36.9; O2SAT 97
[2024-03-10 23:34] LABS: Zinc 75 mcg/dL (60-130)
[2024-03-11 07:45] VITALS: BP 111/70; PULSE 53; RESP 18; TEMP 36.6; O2SAT 98
[2024-03-11] MEDS: Sertraline HCL 50 MG TABLET 150 MG PO (08:36)
[2024-03-11] MEDS: clonazePAM 0.5 MG TABLET PO ×2 (08:37→20:23)
[2024-03-11 09:02] LABS: Thyroid Stimulating Hormone 1.77 uIU/mL (0.32-4.0)
[2024-03-11] MEDS: Levothyroxine Sodium 75 MCG TABLET PO (11:18)
--- NOTE | 2024-03-11 16:10 | HO.PSYCHPN ---
Subjective Subjective Date of Service: 03/11/24 Reason For Visit: si depression anxiety Interim History: calm, cooperative, affable. less distressed than during previous admission. reviewed intervening events. agreeable to take zoloft, now at 150 mg daily. questioning abilify, states even at 1 mg QHS he experienced something nithin to orthostatic hypotension. refused last NOC, agrees to give it another try. agreeable to DC later this week. per staff, +dep/anx. withdrawn. eating well. diverting, or trying to, meds. Mental Status Exam Mental Status Exam Narrative: adequately dressed and groomed. cooperative. no PMA/PMR. speech incr amount, nml rate. nml loudness, decr latency. thoughts linear and variably logical. overvalued ideas bordering on delusional. affect constricted, hyper-intense, non-labile. mood anxious. no SI/HI/AVH. Diagnostics Vital Signs (24Hr): Vital Signs - 24 hr 03/10/24 20:20 03/11/24 07:45 Temperature 98.5 F 97.8 F Pulse Rate 80 53 Respiratory Rate 14 18 Blood Pressure 125/75 111/70 Pulse Oximetry 97 98 Oxygen Delivery Method Room Air Room Air BMI result Body Mass Index 26.9 Labs 03/03/24 17:48 03/06/24 08:25 Labs: Laboratory Results - last 48 hr 03/06/24 03/11/24 08:25 08:12 TSH 1.77 Zinc 75 Medications Medications Current Medications Acetaminophen (Acetaminophen 325 Mg Tablet) 650 mg PO Q6H PRN PRN Reason: Headache/Pain Mild Scale (1-3) Al Hydroxide/Mg Hydroxide (Magnesium Hydrox/Alum Hydrox 30 Ml Oral.Susp) 30 ml PO Q6H PRN PRN Reason: Heartburn/Nausea Aripiprazole (Aripiprazole 2 Mg Tablet) 1 mg PO BEDTIME [facility] Last Admin: 03/10/24 21:11 Dose: Not Given Clonazepam (Clonazepam 0.5 Mg Tablet) 0.5 mg PO BID [facility] Last Admin: 03/11/24 08:37 Dose: 0.5 mg Hydroxyzine HCl (Hydroxyzine Hcl 25 Mg Tablet) 25 mg PO Q6H PRN PRN Reason: Anxiety Levothyroxine Sodium (Levothyroxine Sodium 75 Mcg Tablet) 75 mcg PO DAILY@0600 [facility] Last Admin: 03/11/24 11:18 Dose: 75 mcg Magnesium Hydroxide (Milk Of Magnesia 30 Ml Oral.Susp) 30 ml PO DAILY PRN PRN Reason: Constipation Sertraline HCl (Sertraline Hcl 50 Mg Tablet) 150 mg PO DAILY [facility] Last Admin: 03/11/24 08:36 Dose: 150 mg Trazodone HCl (Trazodone Hcl 50 Mg Tablet) 50 mg PO BEDTIME MRX1 PRN PRN Reason: Insomnia Allergies Allergies Allergy/AdvReac Type Severity Reaction Status Date / Time grass pollen Allergy Unknown Unknown Verified 03/03/24 16:37 david Allergy Unknown Unknown Verified 02/08/24 15:41 Peanut Butter Allergy Unknown Unknown Verified 02/08/24 15:41 Seasonal Allergies Allergy Unknown Unknown Verified 02/08/24 15:41 almonds Allergy Unknown Unknown Uncoded 08/03/22 13:43 pineapples Allergy Unknown Unknown Uncoded 08/03/22 13:43 Assessment & Plan Assessment & Plan (1) OCD (obsessive compulsive disorder): Status: Acute Code(s): F42.9 - Obsessive-compulsive disorder, unspecified (2) MDD (major depressive disorder), recurrent episode: Qualifiers: Major depression episode severity: severe Status: Acute Code(s): F33.9 - Major depressive disorder, recurrent, unspecified (3) Illness anxiety disorder: Status: Acute Code(s): 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 (4) Clicking tinnitus of both ears: Status: Acute Code(s): H93.13 - Tinnitus, bilateral Plan Patient anxious depressed rational hopeless helpless ruminating and obsessional focused on his hearings things that can affect hearing what might impact his hearing fears about hearing loss inferior of catastrophic change leading to suicidality it is somewhat difficult for patient to way information regarding this and he is open to the possibility of Anafranil trial we also discussed low-dose amitriptyline trial and that all the wall antidepressants can actually increase tinnitus there is literature on the use particularly of tricyclics and a that may be helpful may help decrease patient's anxiety and obsessional ruminating at present continue sertraline 150 mg clonazepam Abilify might benefit from increase ck labs ekg see if ent records can be reviewed sw for [facility] family sitauation ? contributibg factors might benefit from php 11/14: Pt continues to report feeling depressed and anxious ; pt stated, I'm depressed because I feel like I'm going deaf. I wish I wasn't alive but the acute need to do it is not as strong . Pt reports suicidal ideation with no plan. denies HI/VH/AH. keeping to self. writing in journal. 03/08: pt stated, the ringing is getting worse. I'm worried if I get a hearing aid, it'll help at first then it won't . Pt reports suicidal ideation with no plan; pt stated, I'm feeling suicidal but I don't want to do something and traumatize my son . denies HI/VH/AH. pt reports sleeping well. 03/09 the patient reports still feeling dysphoric. Slept 8 hours. Continue same treatment. 03/10 TSH for tomorrow morning. Continue same treatment. 03/11: calm, less distressed than prior. on zoloft 150, willing to give abilify 1 QHS another try. c/o orthostatic hypotension s/e. planning to discharge mid-late week. Reason for continued inpatient stay Substantial Risk for: harm to self and inability to function Time Spent With Patient Time: Total time managing care of this patient today __25__ minutes.
[2024-03-11 19:29] VITALS: BP 116/67; PULSE 64; RESP 16; TEMP 36.8; O2SAT 97
[2024-03-11] MEDS: ARIPiprazole 2 MG TABLET 1 MG PO (20:23)
[2024-03-12] MEDS: Levothyroxine Sodium 75 MCG TABLET PO (06:53)
[2024-03-12 07:39] VITALS: BP 97/57; PULSE 56; RESP 16; TEMP 36.5; O2SAT 98
[2024-03-12] MEDS: Sertraline HCL 50 MG TABLET 150 MG PO (08:18)
[2024-03-12] MEDS: clonazePAM 0.5 MG TABLET PO ×2 (08:18→20:28)
--- NOTE | 2024-03-12 16:03 | HO.PSYCHPN ---
Subjective Subjective Date of Service: 03/12/24 Reason For Visit: si depression anxiety Interim History: stable. reports no s/e from abilify last night. willing to continue at 1 mg. planning for discharge. per staff, attended 2 groups yesterday. eating 50-100% meals. c/o itching, tinnitus. slept 10 hours. Mental Status Exam Mental Status Exam Narrative: adequately dressed and groomed. cooperative. no PMA/PMR. speech incr amount, nml rate. nml loudness, decr latency. thoughts linear and variably logical. overvalued ideas bordering on delusional. affect constricted, hyper-intense, non-labile. mood anxious. no SI/HI/AVH. Diagnostics Vital Signs (24Hr): Vital Signs - 24 hr 03/11/24 19:29 03/12/24 07:39 Temperature 98.3 F 97.7 F Pulse Rate 64 56 Respiratory Rate 16 16 Blood Pressure 116/67 97/57 L Pulse Oximetry 97 98 Oxygen Delivery Method Room Air Room Air BMI result Body Mass Index 26.9 Labs 03/03/24 17:48 03/06/24 08:25 Labs: Laboratory Results - last 48 hr 03/06/24 03/11/24 08:25 08:12 TSH 1.77 Zinc 75 Medications Medications Current Medications Acetaminophen (Acetaminophen 325 Mg Tablet) 650 mg PO Q6H PRN PRN Reason: Headache/Pain Mild Scale (1-3) Al Hydroxide/Mg Hydroxide (Magnesium Hydrox/Alum Hydrox 30 Ml Oral.Susp) 30 ml PO Q6H PRN PRN Reason: Heartburn/Nausea Aripiprazole (Aripiprazole 2 Mg Tablet) 1 mg PO BEDTIME [facility] Last Admin: 03/11/24 20:23 Dose: 1 mg Clonazepam (Clonazepam 0.5 Mg Tablet) 0.5 mg PO BID [facility] Last Admin: 03/12/24 08:18 Dose: 0.5 mg Hydroxyzine HCl (Hydroxyzine Hcl 25 Mg Tablet) 25 mg PO Q6H PRN PRN Reason: Anxiety Levothyroxine Sodium (Levothyroxine Sodium 75 Mcg Tablet) 75 mcg PO DAILY@0600 [facility] Last Admin: 03/12/24 06:53 Dose: 75 mcg Magnesium Hydroxide (Milk Of Magnesia 30 Ml Oral.Susp) 30 ml PO DAILY PRN PRN Reason: Constipation Sertraline HCl (Sertraline Hcl 50 Mg Tablet) 150 mg PO DAILY ROSY Last Admin: 03/12/24 08:18 Dose: 150 mg Trazodone HCl (Trazodone Hcl 50 Mg Tablet) 50 mg PO BEDTIME MRX1 PRN PRN Reason: Insomnia Allergies Allergies Allergy/AdvReac Type Severity Reaction Status Date / Time grass pollen Allergy Unknown Unknown Verified 03/03/24 16:37 david Allergy Unknown Unknown Verified 02/08/24 15:41 Peanut Butter Allergy Unknown Unknown Verified 02/08/24 15:41 Seasonal Allergies Allergy Unknown Unknown Verified 02/08/24 15:41 almonds Allergy Unknown Unknown Uncoded 08/03/22 13:43 pineapples Allergy Unknown Unknown Uncoded 08/03/22 13:43 Assessment & Plan Assessment & Plan (1) OCD (obsessive compulsive disorder): Status: Acute Code(s): F42.9 - Obsessive-compulsive disorder, unspecified (2) MDD (major depressive disorder), recurrent episode: Qualifiers: Major depression episode severity: severe Status: Acute Code(s): F33.9 - Major depressive disorder, recurrent, unspecified (3) Illness anxiety disorder: Status: Acute Code(s): 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 (4) Clicking tinnitus of both ears: Status: Acute Code(s): H93.13 - Tinnitus, bilateral Plan Patient anxious depressed rational hopeless helpless ruminating and obsessional focused on his hearings things that can affect hearing what might impact his hearing fears about hearing loss inferior of catastrophic change leading to suicidality it is somewhat difficult for patient to way information regarding this and he is open to the possibility of Anafranil trial we also discussed low-dose amitriptyline trial and that all the wall antidepressants can actually increase tinnitus there is literature on the use particularly of tricyclics and a that may be helpful may help decrease patient's anxiety and obsessional ruminating at present continue sertraline 150 mg clonazepam Abilify might benefit from increase ck labs ekg see if ent records can be reviewed sw for clarrity family sitauation ? contributibg factors might benefit from php 03/07: Pt continues to report feeling depressed and anxious ; pt stated, I'm depressed because I feel like I'm going deaf. I wish I wasn't alive but the acute need to do it is not as strong . Pt reports suicidal ideation with no plan. denies HI/VH/AH. keeping to self. writing in journal. 03/08: pt stated, the ringing is getting worse. I'm worried if I get a hearing aid, it'll help at first then it won't . Pt reports suicidal ideation with no plan; pt stated, I'm feeling suicidal but I don't want to do something and traumatize my son . denies HI/VH/AH. pt reports sleeping well. 03/09 the patient reports still feeling dysphoric. Slept 8 hours. Continue same treatment. 03/10 TSH for tomorrow morning. Continue same treatment. 03/11: calm, less distressed than prior. on zoloft 150, willing to give abilify 1 QHS another try. c/o orthostatic hypotension s/e. planning to discharge mid-late week. 03/12: no s/e to abilify 1 mg QHS. continue current mgmt. planning for discharge. Reason for continued inpatient stay Substantial Risk for: harm to self Time Spent With Patient Time: Total time managing care of this patient today __25__ minutes.
[2024-03-12 20:00] VITALS: BP 116/73; PULSE 71; RESP 16; TEMP 36.6; O2SAT 98
[2024-03-12] MEDS: ARIPiprazole 2 MG TABLET 1 MG PO (20:28)
[2024-03-13] MEDS: Levothyroxine Sodium 75 MCG TABLET PO (06:21)
[2024-03-13 07:34] VITALS: BP 98/65; PULSE 55; RESP 16; TEMP 37.2; O2SAT 98
[2024-03-13] MEDS: clonazePAM 0.5 MG TABLET PO ×2 (09:20→20:34)
[2024-03-13] MEDS: Sertraline HCL 50 MG TABLET 150 MG PO (09:20)
--- NOTE | 2024-03-13 12:39 | P.DS_ITS ---
DS: Providers Provider Date of Service: 03/13/24 Date of admission: 03/05/24 09:04 Primary care physician: Chase Joe DO Consults: 03/08/24 14:43 Consult to Hospitalist Routine Comment: Consulting Provider: Hospitalist Reason For Exam: hyperlipidemia DS: Diagnosis Discharge Diagnosis (1) OCD (obsessive compulsive disorder): Status: Acute (2) MDD (major depressive disorder), recurrent episode: Status: Acute (3) Illness anxiety disorder: Status: Acute (4) Clicking tinnitus of both ears: Status: Acute DS: Medications Discharge Medications Home Medications: Home Medications ?Medication ?Instructions ?Recorded ?Confirmed levothyroxine 75 mcg tablet 75 mcg PO DAILY@0600 02/08/24 03/03/24 clonazepam 0.5 mg tablet 0.5 mg PO BID 03/03/24 03/03/24 sertraline 100 mg tablet 150 mg PO DAILY 03/03/24 03/03/24 Previous Rx's ?Medication ?Instructions ?Recorded aripiprazole 2 mg tablet (Abilify) 1 mg (1/2 x 2 mg) PO BEDTIME 30 03/13/24 days #15 tabs Mental Status Exam Mental Status Exam Narrative: adequately dressed and groomed. cooperative. no PMA/PMR. speech nml amount, nml rate. nml loudness, decr latency. thoughts linear and variably logical. overvalued ideas bordering on delusional. affect constricted, hyper-intense, non-labile. mood frustrated. no SI/HI/AVH. Data Data Completed and Pending Completed studies during hospitalization [Text1]: 03/06/24 03/08/24 03/11/24 08:25 08:28 08:12 Triglycerides 113 Cholesterol 241 H LDL Cholesterol, Calc 171 H HDL Cholesterol 48 TSH 1.77 Zinc 75 DS: Summary Hospital Course Hospital Course: per 03/05 admission note: HPI Subjective Notes: Conditional Voluntary Healthcare Proxy: No Guardianship: No Narrative: Pt seen in eval c/o severe tinnitus any sounds make it worse c/o severe burning pain with tinnitus had recent [facility] has not tried hearing aids fear will have worse hearing loss . Pt states very attached to son 13 daughter 19 in college very loyal loving mamadou has aspergers Pt has not made suiicide attempt has been thinking about killing himself pos fh uncle had ect pt with long hx ocd if I di something hell vs michael had cking rituals . The patient has felt increasingly despairing that he is having worsening hearing loss that is treatments will just make the hearing worse and that there is no good treatment for his noxious tinnitus and has had intermittent thoughts to hang himself walk into a train at times he feels he has no hope for any life for himself or any kind of future he denies currently plan or intent to do this but he does state that at times he feels detached from his family he does describe some improvement on sertraline currently at 150 mg he does feel his hearing has been getting progressively worse and is worried about any loud no including toilet flushing or any medication even very briefly it was could cause catastrophic hearing loss he has been on Abilify 1 mg has not been on Anafranil Patient did have recent psychiatric hospitalization here was discharged had evaluation [facility] did not feel supported had an admission to a respite type setting and had another negative reaction to the provider there and felt increasingly desperate Past Psychiatric History: hosps: reports one prior, [facility] in 2021, after accidental steroid overdose SA: denies SIB: denies HIB: denies outpt: OCD. sees prescriber via telehealth. also has telehealth therapy 1-2x weekly. h/o zoloft up to 175 mg daily at one point, but over 100 mg daily for years. 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 lives with , son (13), and daughter (18) in [place], [place]. on medical leave from his work. Trauma History: denies Precis: Patient anxious depressed rational hopeless helpless ruminating and obsessional focused on his hearings things that can affect hearing what might impact his hearing fears about hearing loss inferior of catastrophic change leading to suicidality it is somewhat difficult for patient to way information regarding this and he is open to the possibility of Anafranil trial we also discussed low- dose amitriptyline trial and that all the wall antidepressants can actually increase tinnitus there is literature on the use particularly of tricyclics and a that may be helpful may help decrease patient's anxiety and obsessional ruminating at present continue sertraline 150 mg clonazepam Abilify might benefit from increase ck labs ekg see if ent records can be reviewed sw for clarrity family sitauation ? contributibg factors might benefit from php 03/07: Pt continues to report feeling depressed and anxious ; pt stated, I'm depressed because I feel like I'm going deaf. I wish I wasn't alive but the acute need to do it is not as strong . Pt reports suicidal ideation with no plan. denies HI/VH/AH. keeping to self. writing in journal. 03/08: pt stated, the ringing is getting worse. I'm worried if I get a hearing aid, it'll help at first then it won't . Pt reports suicidal ideation with no plan; pt stated, I'm feeling suicidal but I don't want to do something and traumatize my son . denies HI/VH/AH. pt reports sleeping well. 03/09 the patient reports still feeling dysphoric. Slept 8 hours. Continue same treatment. 03/10 TSH for tomorrow morning. Continue same treatment. 03/11: calm, less distressed than prior. on zoloft 150, willing to give abilify 1 QHS another try. c/o orthostatic hypotension s/e. planning to discharge mid-late week. 03/12: no s/e to abilify 1 mg QHS. continue current mgmt. planning for discharge. 03/13: tolerating abilify 1 mg QHS. thyroid studies WNL. meds reviewed, reconciled, prescribed. discharge tomorrow. 03/14: safe, stable. discharged as per plan. Time Spent with Patient Time attestation: Total time managing care of this patient today _35___ minutes. Discharge Plan Discharge Anticipated Discharge Date/Time: 03/14/24 11:00 Patient Disposition: Home, Self-Care Discharge Diagnosis: OCD Tinnitus Referrals: Amauri Mendez (Psychiatry) [Other] - 1 Week (*Per your provider, please reach out to him via email regarding a follow up appointment. ) Partial Hospitalization Program (PHP) [Other] - 04/03/24 8:00 am (INTAKE APPOINTMENT -PHP staff will reach out to you if a sooner intake appointment becomes available. ) Armand Pemberton (Therapy) [Other] - 1 Week (*A voicemail was left for your therapist notifying him that a follow up appointment is needed. Please reach out to your therapist to schedule your aftercare appointment. ) [facility] [Provider Group] - 1 Week (03-13-24 [facility] has been added to patients chart. Please call [phone] to schedule your follow up appt.) Discharge Medications: New aripiprazole [Abilify] 2 mg Tablet 1 mg PO BEDTIME 30 Days Qty: 15 0RF Continued levothyroxine 75 mcg tablet 75 mcg PO DAILY@0600 clonazepam 0.5 mg tablet 0.5 mg PO BID sertraline 100 mg tablet 150 mg PO DAILY Patient Comments: PT states he was just recently instructed by provider to increase to 150mg Discontinued aripiprazole 2 mg tablet 1 mg PO BEDTIME Patient Comments: Pt states provider changed dosage 03/01 d/t orthostatic hypotension prednisone 10 mg tablet PO quetiapine 100 mg tablet 100 mg PO BEDTIME PRN (Reason: insomnia) Discharge Orders: Discharge Order (Routine); Ordered 03/14/24 Ordered By: Yamil Salcedo Diet: Advance to usual diet Activity on Discharge: As tolerated Stand Alone Forms: Patient Portal Discharge page, Community Support Print Language: Mauritanian Care Plan Goals: remain safe and stable in the outpatient treatment setting Health Concerns: Tinnitus Hearing Loss Plan of Treatment: take medications as prescribed, attend appointments as scheduled Assessment: not at imminent risk of harm to self or others Discharge Date/Time: 03/14/24 11:30
[2024-03-13 20:00] VITALS: BP 121/65; PULSE 73; RESP 17; TEMP 36.9; O2SAT 96
[2024-03-13] MEDS: ARIPiprazole 2 MG TABLET 1 MG PO (20:34)
[2024-03-14] MEDS: Levothyroxine Sodium 75 MCG TABLET PO (06:22)
[2024-03-14 07:00] VITALS: BMI 27.5
[2024-03-14 07:10] VITALS: BP 112/59; PULSE 58; RESP 14; TEMP 36.4; O2SAT 98
[2024-03-14] MEDS: Sertraline HCL 50 MG TABLET 150 MG PO (08:27)
[2024-03-14] MEDS: clonazePAM 0.5 MG TABLET PO (08:27)
--- NOTE | 2024-03-14 12:20 | PC.NURSE ---
Patient easily engaged. Reports mood continues depressed and anxious, denies SI/HI plan or intent. Reports he does not know how to function anymore due to the affects of his hearing loss and tinnitus. Reports Zoloft is helping with perseveration although now feels bored because without the perseveration he feels a hole . They gave his some satisfaction in thinking about things in the past and what could have been different. Planning to attend TIP, and follow up with specialist for tinnitus. All discharge paperwork reviewed with patient, reports understanding. Medications reviewed, reports understanding. Appointments reviewed with patient reports understanding. All belongings taken with patient Crisis numbers provided.
== END 2024-03-14 11:30 | disposition home or self-care (01) | DRG 755 ==
LOC: HO.ED 22:14 → HO.PADLT16 03-05 09:05
PROVIDERS: Physician Assistant Medical; Psychiatry & Neurology Psychiatry; Registered Nurse; Admitting Provider Psychiatry & Neurology Psychiatry; Emergency Provider Emergency Medicine; PCP Hospitalist; Visit Provider Psychiatry & Neurology Psychiatry
DX: F42.9 Obsessive-compulsive disorder, unspecified (principal); R45.851 Suicidal ideations; H93.13 Tinnitus, bilateral; F33.9 Major depressive disorder, recurrent, unspecified; F45.21 Hypochondriasis; E78.5 Hyperlipidemia, unspecified; Z20.822 Contact with and (suspected) exposure to COVID-19; Z79.890 Hormone replacement therapy; Z79.899 Other long term (current) drug therapy
CPT/HCPCS: 36415; 80053; 80061; 80143; 80179; 80307; 81001; 84443; 84630; 85025; 87635; 93005; 99285; S9485

== ENCOUNTER → 2024-03-03 16:36 | Outpatient (BNV) | payer BC, SELFPAY | PROVIDERS: Emergency Provider Emergency Medicine; PCP Hospitalist; Visit Provider Internal Medicine Cardiovascular Disease | DX: R45.851 Suicidal ideations (principal); F32.9 Major depressive disorder, single episode, unspecified | CPT/HCPCS: 93010 ==

== ENCOUNTER → 2024-03-05 09:04 | Outpatient (BNV) | payer BC, SELFPAY | PROVIDERS: Admitting Provider Psychiatry & Neurology Psychiatry; Emergency Provider Emergency Medicine; PCP Hospitalist; Visit Provider Registered Nurse | DX: F33.2 Major depressive disorder, recurrent severe without psychotic features (principal); F42.9 Obsessive-compulsive disorder, unspecified; F45.21 Hypochondriasis; H93.13 Tinnitus, bilateral | CPT/HCPCS: 99231; 99232; 99239 ==

== ENCOUNTER → 2024-03-05 09:04 | Outpatient (BNV) | payer BC, SELFPAY | PROVIDERS: Admitting Provider Psychiatry & Neurology Psychiatry; Emergency Provider Emergency Medicine; PCP Hospitalist; Visit Provider Psychiatry & Neurology Psychiatry | DX: F42.9 Obsessive-compulsive disorder, unspecified (principal); F33.9 Major depressive disorder, recurrent, unspecified; F45.21 Hypochondriasis; H93.13 Tinnitus, bilateral | CPT/HCPCS: 90792 ==

== ENCOUNTER → 2024-03-25 08:15 | Outpatient (BNV) | payer BC, SELFPAY | PROVIDERS: Visit Provider Psychiatry & Neurology Psychiatry | DX: F42.9 Obsessive-compulsive disorder, unspecified (principal); F33.9 Major depressive disorder, recurrent, unspecified | CPT/HCPCS: 90792; 99499 ==

== ENCOUNTER 2024-04-02 09:00 | Outpatient (RCR) | payer BC, SELFPAY ==
[2024-03-18 11:54] VITALS: BP 98/70; PULSE 60; TEMP 36.8
[2024-03-18 11:59] VITALS: BMI 28.1
--- NOTE | 2024-03-18 12:50 | PC.ADMIT ---
Patient is a 53 year old male who initially started [facility] on 02/06/24 and attended program for 2 days and was struggling with sxs of tinnitus and Hyperacusis. Patient was evaluated by crisis and subsequently hospitalized on the inpatient behavioral health unit from 02/08-02/15/24. Patient was discharged from the unit for an evaluation with [facility] then was referred to [facility] specialists afterwards. After first inpatient LOC, per records, patient reportedly was admitted to [facility] x 1 week then was suppose to go to [facility] afterwards for a higher level of care however prior to going to [facility] patient needed to go to ER for an evaluation. Patient was reportedly in the hospital parking lot with his for 4 hours contemplating whether of not to go in. Patient eventually was hospitalized at [facility] inpatient behavioral health unit for a second time from 03/05-03/14/24. When asked about hospitalization and if he felt any better he stated, I think it got worse there. I went to see an ENT at [facility] and then went to [facility] for an appointment. They tested me and did not show as big of a drop. They think I had a autoimmune response . Patient reports he has been on a RUBIN from work since January,. Stated he needs an extension and is going to talk to his psychiatrist about this as he was the one who did the initial RUBIN paperwork. Patient is currently alert and oriented x4. Calm and cooperative. Some focus on hearing issues however less so. No irritability noted. Patient stated the anxiety is much better. He does appear much less anxious then when he was at [facility] previously. He is taking medications as prescribed. He filled out paperwork and is waiting to hear back from the [facility]. He is hopeful that they can help him. Patient presented with depressed mood and affect. He denied SI, no HI. He was given a copy of his safety plan if needed. He is considering work options and the possibility of finding less stressful job. He is also thinking about other options possibly retiring for a while however is unsure. Medications reconciled with patient and patient's medication d/c list from [facility] inpatient unit. He reports taking medications as prescribed. He denied any history of or current use of any substances.
--- NOTE | 2024-03-18 22:31 | HO.PS.ADMBH ---
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 At the time he presented in a highly anxious and agitated state, perseverative, minimally cooperative, and was unable to be redirected. He expressed severe hopelessness, despair and was making suicidal threats toward his and this automobile and property underwriter and was agreeable to be seen for a crisis evaluation. He has since had [id number] inpatient hospitalizations. 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 He says he actively tries to keep himself busy, I read a book a day . medication provides him with the ablity to keep himself distracted from obsessive rumination although says he is somewhat conflicted about that. There are times he compelled to think about his hearing and other concerns but is unable to for extended amounts of time because he gets blocked by the medication. I've been like this since I was a kid...I'm not sure if I necessarily always see it as a bad thing (the OCD) . Pt continues with complaints of depression, OCD although does present as more calm and less perseverative than when we met prior to [facility]. There appears to have been some imprvement in insight, though still impaired. He feels the depression, at this time, is more severe than OCD, however he still presents with rumination and still quite perseverative on health obsessions/tinnitus that appear to be based in reality but might be grossly overrepresented by undertreated OCD. Zoloft has been well tolerated at 150 mg, has been on higher doses in the past. He had some difficult starting ABilify (felt 2 mg was causing side effects and was lowered to 1 mg which he is now adjusted to), but his OCD symptoms would likely improve with titrating the dose. He appreciates there has been some modest improvements in the obsessive thoughts and runimation since starting on ABilify, although insight is still limited. Other options could include seeing if he could tolerated a different antidepressant, especially one that may better treat the OCD like fluvoxamine or clomipramine, neither one has he been on before, and is was very apprehensive about starting an entirely new medication. he had many questions about how such a medication could be started given the potential for drug/drug interactions or side effects. I suggest a strategy of testing out the new medication on a very tiny dose first, just to see how he tolerates this before proceeding with cross titraton. He preferred a method of preemptively lowering the Zoloft dose, just beforehand, to make some room for starting the initial dose of another medication to mitigate risk of developing serotonin sx/ae. He shared feeling encouraged that I had suggested a medication that had been mentioned by a previous provider, yet he still balked at the idea of starting on it. A more practical approach may be just trying to optimize the current meds, and increase the dose of ABilify to 2 mg (and increase no more than 1 mg/day, but was equally distressed at this approach as well. Past Psychiatric History: [facility] x 3: [facility] x2 in 01/2024 and 02/2024 for depression/SI in context of OCD and tinnitus; [facility] in 2021, after accidental steroid overdose PHP: was seen for PHP intake in 01/2024 and referred for Crisis eval/stepped up to [facility]: denies SIB: denies HIB: denies outpt: OCD. sees prescriber via telehealth. also has telehealth therapy 1-2x weekly. OP therapist: OP provider: PCP: Prior med trials: Zoloft up to 175 mg daily at one point, but over 100 mg daily for years. 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 lives with , son (13), and daughter (18) in [place], [place]. on medical leave from his work. Trauma History: denies Diagnostics Vital Signs (24Hr): Vital Signs - 24 hr 03/18/24 11:54 Temperature 98.3 F Pulse Rate 60 Blood Pressure 98/70 BMI result Body Mass Index 28.1 Meds/Allergies Meds Home Medications ?Medication ?Instructions ?Recorded ?Confirmed ?Type levothyroxine 75 mcg tablet 75 mcg PO DAILY@0600 02/08/24 03/18/24 History clonazepam 0.5 mg tablet 0.5 mg PO BID 03/03/24 03/18/24 History sertraline 100 mg tablet 150 mg PO DAILY 03/03/24 03/18/24 History Allergies Allergies Allergy/AdvReac Type Severity Reaction Status Date / Time grass pollen Allergy Unknown Unknown Verified 03/03/24 16:37 david Allergy Unknown Unknown Verified 02/08/24 15:41 Peanut Butter Allergy Unknown Itching Verified 03/18/24 11:54 Seasonal Allergies Allergy Unknown Unknown Verified 02/08/24 15:41 gluten Allergy Hives Verified 03/18/24 11:54 almonds Allergy Unknown Unknown Uncoded 08/03/22 13:43 pineapples Allergy Unknown Unknown Uncoded 08/03/22 13:43 Mental Status Exam Mental Status Exam Narrative: Alert, oriented, in no acute distress. Calm, cooperative, somewhat engaged, internally preoccupied at moments. Ruminative, No psychomotor agitation or neurovegetative retardation. Eye contact intermittent. Mood depressed, affect dysthymic, blunted without tearfulness or lability. Speech normal, soft, flat without slowing, some delay in some responses but responds appropriately.. Thought process linear, coherent, perseverative. Thought content related to stressors, namely preoccupied with medical issues/tinnitus, +transient hopelessness, +passive SI, denies any intention, urge or plan to harm self. Denies any aggressive ideation or HI. No paranoia or delusional content elicited. No evidence of psychosis. Insight and judgment fair. Assessment & Plan Assessment & Plan (1) OCD (obsessive compulsive disorder): Status: Acute Code(s): F42.9 - Obsessive-compulsive disorder, unspecified (2) MDD (major depressive disorder), recurrent episode: Status: Acute Qualifiers: Major depression episode severity: severe Code(s): F33.9 - Major depressive disorder, recurrent, unspecified Plan Admit to [facility] VS reviewed: abrefile, BP 98/70;?60 bpm continue other regular medications? Routine lab work ordered as indicated EKG, routine for baseline QTc for medication considerations as indicated UDS as indicated MassPat reviewed Continue to monitor as per protocol Patient educated on: diagnosis and medication risk/benefits Informed Consent: understands Reason for continued partial hosp. stay Substantial Risk for: inability to function, rapid decompensation and med/psych decompensation Certification I certify that partial hospital treatment is medically necessary due to the symptoms and problems resulting from the patient's mental illness and the failure to treat the patient at the partial hospital level of care would likely result in the patient requiring inpatient psychiatric care which could not be prevented at a less intensive level of care. Time Spent With Patient Time: Total time managing care of this patient today __60__ minutes.
--- NOTE | 2024-03-20 14:47 | HO.PHP ---
Client's case has been opened and reviewed in team.
--- NOTE | 2024-03-28 20:45 | PM.EVENT ---
Event Note Date of Service: 03/26/24 Event Note: Patient was scheduled to meet with provider but did not attend program today. Time Spent With Patient Time: Total time managing care of this patient today ____ minutes.
--- NOTE | 2024-04-02 22:16 | P.PNPSP_ITS ---
Subjective Subjective Date of Service: 04/02/24 Reason For Visit: OCD Mental Status Exam Mental Status Exam Narrative: Alert, oriented, in no acute distress. Calm, cooperative, somewhat engaged, internally preoccupied at moments. Ruminative, No psychomotor agitation or neurovegetative retardation. Eye contact intermittent. Mood depressed, affect dysthymic, blunted without tearfulness or lability. Speech normal, soft, flat without slowing, some delay in some responses but responds appropriately.. Thought process linear, coherent, perseverative. Thought content related to stressors, namely preoccupied with medical issues/tinnitus, +transient hopelessness, +passive SI, denies any intention, urge or plan to harm self. Denies any aggressive ideation or HI. No paranoia or delusional content elicited. No evidence of psychosis. Insight and judgment fair. Diagnostics Vital Signs (24Hr): BMI result Body Mass Index 28.1 Assessment & Plan Assessment & Plan (1) OCD (obsessive compulsive disorder): Status: Acute Code(s): F42.9 - Obsessive-compulsive disorder, unspecified (2) MDD (major depressive disorder), recurrent episode: Qualifiers: Major depression episode severity: severe Status: Acute Code(s): F33.9 - Major depressive disorder, recurrent, unspecified Plan Admit to [facility] VS reviewed: abrefile, BP 98/70;?60 bpm continue other regular medications? Routine lab work ordered as indicated EKG, routine for baseline QTc for medication considerations as indicated UDS as indicated MassPat reviewed Continue to monitor as per protocol Certification I certify that partial hospital treatment is medically necessary due to the symptoms and problems resulting from the patient's mental illness and the failure to treat the patient at the partial hospital level of care would likely result in the patient requiring inpatient psychiatric care which could not be prevented at a less intensive level of care. Total time managing care of this patient today ____ minutes. Discharge Plan Discharge Attending provider: Shea Molina Medications: Continued levothyroxine 75 mcg tablet 75 mcg PO DAILY@0600 clonazepam 0.5 mg tablet 0.5 mg PO BID sertraline 100 mg tablet 150 mg PO DAILY aripiprazole [Abilify] 2 mg Tablet 1 mg PO BEDTIME 30 Days Qty: 15 0RF Patient Education: Depression (DC), Obsessive Compulsive Disorder (DC) Print Language: Nepali
== END 2024-04-02 23:59 | disposition home or self-care (01) ==
LOC: HO.PHPA 09:00
PROVIDERS: Visit Provider Psychiatry & Neurology Psychiatry
DX: F42.9 Obsessive-compulsive disorder, unspecified (principal); F33.9 Major depressive disorder, recurrent, unspecified
CPT/HCPCS: 90791; 90853

== ENCOUNTER 2024-04-02 13:51 | Outpatient (REF) | payer BC, SELFPAY ==
[2024-04-02 14:59] LABS: Erythrocyte Sedimentation Rate 6 MM/HR (0-15)
[2024-04-02 15:10] LABS: Rheumatoid Factor 25.7 IU/mL (<15.0)
[2024-04-02 15:21] LABS: Parathyroid Hormone Intact 28.9 pg/mL (8.7-77.1)
[2024-04-02 15:52] LABS: Albumin Level 4.4 g/dL (3.5-5.0); Anion Gap 13 (12-20); Aspartate Amino Transferase 35 U/L (5-37); Bilirubin Total 0.4 mg/dL (0.0-1.0); Blood Urea Nitrogen 9 mg/dL (9-16); C Reactive Protein 0.13 mg/dL (< or = 0.50); Calcium 9.8 mg/dL (8.4-10.2); Carbon Dioxide 30 mmol/L (22-29); Chloride 101 mmol/L (96-108); Estimated Glomerular Filt Rate > 60; Ferritin 112 ng/mL (20-250); Glucose Random 85 mg/dL (60-115); Iron 81 mcg/dL (45-160); Magnesium 2.2 mg/dL (1.6-2.6); Percent Iron Saturation 27 % (15-50); Phosphorus 4.1 mg/dL (2.7-4.5); Potassium 4.4 mmol/L (3.3-5.1); Sodium 140 mmol/L (135-145); Total Iron Binding Capacity 304 mcg/dL (228-428); Total Protein 7.3 g/dL (6.5-8.0); Unsaturated Iron Binding 223 ug/dL; Vitamin D 25-OH Total 53.7 ng/mL (>30)
[2024-04-02 16:19] LABS: Alanine Aminotransferase 65 U/L (0-40); Alkaline Phosphatase 103 U/L (39-117)
[2024-04-03 07:59] LABS: Syphilis Screen Nonreactive (Nonreactive)
--- OUTSIDE RECORDS SUMMARY | 2024-04-03 21:51 | XMS_ITS | Data Portability ---
Author Organization [place] - [facility], MAIN OFFICE Address [address] [place] [address] [place] [id number] Assessment Encounter Date Assessment Date Assessment LastModified by Organization Details LastModified Time 05/11/2023 05/11/2023 Spent 60 minutes for evaluation and management, including face to face interaction, review of labs and notes from specialist, discussion and coordination of care. Not available 05/11/2023 09:16:29 06/08/2023 06/08/2023 Spent 25 minutes for evaluation and management, including face to face interaction, review of labs and notes from specialist, discussion and coordination of care. Not available 06/08/2023 13:29:51 09/15/2023 09/15/2023 Spent 45 minutes for evaluation and management, including face to face interaction, review of labs and notes from specialist, discussion and coordination of care. Not available 09/15/2023 11:48:01 12/06/2023 12/06/2023 Spent 45 minutes for evaluation and management, including face to face interaction, review of labs and notes from specialist, discussion and coordination of care. Not available 12/06/2023 16:19:03 01/25/2024 01/25/2024 Spent 45 minutes for evaluation and management, including face to face interaction, review of labs and notes from specialist, discussion and coordination of care. Not available 01/25/2024 12:43:15 Plan of Treatment Reminders Order Date Submit Date Provider Last Modified By Organization Details Last Modified Time Details Appointments None recorded. Lab lipid panel, serum 2023 024 KELSY [facility], [address] [place], [address], 4 18:24:12 TSH, serum or plasma 2023 024 [facility], [address] [place], [address], 4 18:53:56 thyroid peroxidase (tpo) Ab, serum 2023 024 [facility], [address] [place], [address], 4 19:01:08 vitamin D, 25-hydroxy, total, serum 2023 024 [facility], [address] [place], [address], 4 18:53:57 CBC w/ auto diff 2023 024 [facility], [address] [place], [address], 4 18:20:41 ferritin, serum or plasma 2023 024 [facility], [address] [place], [address], 4 18:53:53 ferritin, serum or plasma 2023 024 [facility], [address] [place], [address], 4 05:01:30 folate, serum 2023 024 [facility], [address] [place], [address], 4 18:53:54 iron + total iron-bindin g capacity (TIBC), serum 2023 024 [facility], [address] [place], [address], 4 18:24:10 retic count, blood 2023 024 KELSY [facility], [address] [place], [address], 4 02:47:11 vitamin B12, serum 2023 024 KELSY [facility], [address] [place], [address], 4 18:53:52 TSH + free T4, serum 2023 024 KELSY [facility], [address] [place], [address], 4 04:08:56 lipid panel, serum 2023 024 UTICA [facility], [address] [place], [address], 4 04:08:56 CBC w/ auto diff 2023 024 UTICA [facility], [address] [place], [address], 4 04:08:56 CMP, serum or plasma 2023 024 [facility], [address] [place], [address], 4 04:08:[address] referral - irregular lesion on arm please eval 2023 024 [facility], [address], [place], [address], 4 04:10:40 psychiatris t referral - Pt seems to be manic stateHas flight of ideas and He has severe anxiety and paranoia regarding his hearing and ringing in the ear ( Has seen ENT which he says was not helpful. (pt must bring records)Den ies sleep issuesHas reports h/o risky behaviors in the past such as over spending Bother has OCDFather, mother and pt himself were alcoholics. Pt has not been drinking much in the past few year. Rare beer every other week.Denies using pot since tinnitus gets worse with pot.Has had history hospitaliza tion in 2021 for psychosis (after he was given steroids for tinnitus)Cu rrently reports depression. But speaks rapidly.Has had issues with anger and labile mood. Reports cycling b/w depression and hypomania. Pt has cut down on zoloft (50mg ) and now is very depressed.C all psychiatris t inform the psych of his current depression. He might need his med to be increase and a mood stabilizer to be added. No SI or HI at this time. Will send referral to psych.RTO after psych evel. Pt must bring his medical records. 2023 024 [facility], [address] [facility], [facility], [place], [address], 4 04:01:25 Procedures None recorded. Surgeries None recorded. Imaging None recorded. Medication Orders levothyroxi ne 75 mcg tablet 2023 024 [email or web address] 1 [facility]690, [address] [place] [address], [id number], 4 19:04:16 prednisone 10 mg tablet 2023 024 srastegar 1 [facility] #74877, [address] [place] [address], [id number], 4 13:18:42 prednisone 10 mg tablet 2023 024 [facility]70955, [address] [place], [place], [id number], 4 13:18:46 Naltrex 1.5 mg capsule 2023 024 srastegar 1 [facility], [address] [facility], [place], [place], [id number], 4 20:31:04 naltrexone 4.5 mg capsule 2023 024 srastegar 1 [facility], [address] [facility], [place], [place], [id number], 4 14:11:39 naltrexone 4.5 mg capsule 2023 024 [facility], [address] [facility], [place], [place], [id number], 4 11:58:15 valacyclovi r 500 mg tablet 2023 [facility] #09409, [address] [place] [address], [id number], 12:43:19 Ciprodex 0.3 %-0.1 % ear drops,suspe nsion 2023 [facility]98973, [address] [place] [address], [id number], 12:14:29 Patient TargetsNo targets recorded. Patient InstructionsNo instructions recorded. 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 (pt must bring records)Denies sleep issuesHas reports h/o risky behaviors in the past such as over spending Bother has OCDFather, mother and pt himself were alcoholics.Pt has not been drinking much in the past few year. Rare beer every other week.Denies using pot since tinnitus gets worse with pot.Has had history hospitalization in 2021 for psychosis (after he was given steroids for tinnitus)Currently reports depression. But speaks rapidly.Has had issues with anger and labile mood. Reports cycling b/w depression and hypomania. Pt has cut down on zoloft (50mg ) and now is very depressed.Call psychiatrist inform the psych of his current depression. He might need his med to be increase and a mood stabilizer to be added. No SI or HI at this time. Will send referral to psych.RTO after psych evel. Pt must bring his medical records. Referring Physician: Chase Joe, Internal Medicine, Encounter Date: 12/06/2023 Results Created Date Observation Date Name Description Value Unit Range Abnormal Flag Note LastModifiedBy Organization Detail LastModifiedTime 05/11/19 24 05/11/2023 COMPL ETE CBC WITH DIFF WBC 5.6 K/mm3 (4.0-1 1.0) Not Available [facility] [address] [place], [address], 05/11/2023 18:20:41 05/11/19 24 05/11/2023 COMPL ETE CBC WITH DIFF RBC 5.03 M/mm3 (4.70- 6.10) Not Available [facility] [address] [place], [address], 05/11/2023 18:20:41 05/11/19 24 05/11/2023 COMPL ETE CBC WITH DIFF HGB 15.5 gm/dL (13.7- 17.1) Not Available [facility] [address] [place], [address], 05/11/2023 18:20:41 05/11/19 24 05/11/2023 COMPL ETE CBC WITH DIFF HCT 46.2 % (40.5- 50.0) Not Available [facility] [address] [place], [address], 05/11/2023 18:20:41 05/11/19 24 05/11/2023 COMPL ETE CBC WITH DIFF MCV 91.8 fL (80.0- 94.0) Not Available [facility] [address] [place], [address], 05/11/2023 18:20:41 05/11/19 24 05/11/2023 COMPL ETE CBC WITH DIFF MCH 30.8 pg (27.0- 34.0) Not Available [facility] [address] [place], [address], 05/11/2023 18:20:41 05/11/19 24 05/11/2023 COMPL ETE CBC WITH DIFF MCHC 33.5 g/dL (33.0- 37.0) Not Available [facility] [address] [place], [address], 05/11/2023 18:20:41 05/11/19 24 05/11/2023 COMPL ETE CBC WITH DIFF plt 271 K/mm3 (150-4 60) Not Available [facility] [address] [place], [address], 05/11/2023 18:20:41 05/11/19 24 05/11/2023 COMPL ETE CBC WITH DIFF RDW-SD 40.6 fL (<47.0 ) Not Available [facility] [address] [place], [address], 05/11/2023 18:20:41 05/11/19 24 05/11/2023 COMPL ETE CBC WITH DIFF MPV 10.6 fL (9.4-1 2.4) Not Available [facility] [address] [place], [address], 05/11/2023 18:20:41 05/11/19 24 05/11/2023 COMPL ETE CBC WITH DIFF automated NRBC 0.0 #/100 _WBC' s Not Available [facility] [address] [place], [address], 05/11/2023 18:20:41 05/11/19 24 05/11/2023 COMPL ETE CBC WITH DIFF abs. NRBC 0.0 K/mm3 Not Available [facility] [address] [place], [address], 05/11/2023 18:20:41 05/11/19 24 05/11/2023 COMPL ETE CBC WITH DIFF neut # 3.2 K/mm3 (1.3-7 .0) Not Available [facility] [address] [place], [address], 05/11/2023 18:20:41 05/11/19 24 05/11/2023 COMPL ETE CBC WITH DIFF lymph # 1.8 K/mm3 (0.8-3 .1) Not Available [facility] [address] [place], [address], 05/11/2023 18:20:41 05/11/19 24 05/11/2023 COMPL ETE CBC WITH DIFF mono# 0.4 K/mm3 (0.4-1 .3) Not Available [facility] [address] [place], [address], 05/11/2023 18:20:41 05/11/19 24 05/11/2023 COMPL ETE CBC WITH DIFF eo # 0.2 K/mm3 (0.0-0 .4) Not Available [facility] [address] [place], [address], 05/11/2023 18:20:41 05/11/19 24 05/11/2023 COMPL ETE CBC WITH DIFF baso # 0.0 K/mm3 (0.0-0 .1) Not Available [facility] [address] [place], [address], 05/11/2023 18:20:41 05/11/19 24 05/11/2023 COMPL ETE CBC WITH DIFF abs. imm gran 0.0 K/mm3 Not Available [facility] [address] [place], [address], 05/11/2023 18:20:41 05/11/19 24 05/11/2023 COMPL ETE CBC WITH DIFF neut 57.0 % (44-76 ) Not Available [facility] [address] [place], [address], 05/11/2023 18:20:41 05/11/19 24 05/11/2023 COMPL ETE CBC WITH DIFF lymph 31.3 % (15-43 ) Not Available [facility] [address] [place], [address], 05/11/2023 18:20:41 05/11/19 24 05/11/2023 COMPL ETE CBC WITH DIFF monocyte 7.1 % (4.5-1 0.5) Not Available [facility] [address] [place], [address], 05/11/2023 18:20:41 05/11/19 24 05/11/2023 COMPL ETE CBC WITH DIFF eo 3.7 % (0-6) Not Available [facility] [address] [place], [address], 05/11/2023 18:20:41 05/11/19 24 05/11/2023 COMPL ETE CBC WITH DIFF baso 0.7 % (0-2) Not Available [facility] [address] [place], [address], 05/11/2023 18:20:41 05/11/19 24 05/11/2023 COMPL ETE CBC WITH DIFF imm gran 0.2 % Not Available [facility] [address] [place], [address], 05/11/2023 18:20:41 05/11/19 24 05/11/2023 IRON & TIBC iron 93 mcg/d L (45-16 0) Not Available [facility] [address] [place], [address], 05/11/2023 18:24:10 05/11/19 24 05/11/2023 IRON & TIBC unsaturated iron binding capac 222 mcg/d L (110-3 70) Not Available [facility] [address] [place], [address], 05/11/2023 18:24:10 05/11/19 24 05/11/2023 IRON & TIBC est T. iron bind capacity 315 mcg/d L (155-5 30) Not Available [facility] [address] [place], [address], 05/11/2023 18:24:10 05/11/19 24 05/11/2023 IRON & TIBC % iron saturation 30 % (20-55 ) Not Available [facility] [address] [place], [address], 05/11/2023 18:24:10 05/11/19 24 05/11/2023 LIPID PANEL cholesterol, total 238 mg/dL (<200) high Not Available [facility] [address] [place], [address], 05/11/2023 18:24:12 05/11/19 24 05/11/2023 LIPID PANEL triglyceride 141 mg/dL (<150) Not Available [facility] [address] [place], [address], 05/11/2023 18:24:12 05/11/19 24 05/11/2023 LIPID PANEL HDL chol 45 mg/dL (>39) Not Available [facility] [address] [place], [address], 05/11/2023 18:24:12 05/11/19 24 05/11/2023 LIPID PANEL LDL cholesterol, calculated 165 mg/dL (0-130 ) high Not Available [facility] [address] [place], [address], 05/11/2023 18:24:12 05/11/19 24 05/11/2023 LIPID PANEL non HDL cholesterol (calc) 193 mg/dL (<160) high Not Available [facility] [address] [place], [address], 05/11/2023 18:24:12 05/11/19 24 05/11/2023 VITAM IN B12 vitamin B12 615 pg/mL (232-1 245) Not Available [facility] [address] [place], [address], 05/11/2023 18:53:52 05/11/19 24 05/11/2023 RANDY TIN ferritin 116 NG/mL (16-29 4) Not Available [facility] [address] [place], [address], 05/11/2023 18:53:53 05/11/19 24 05/11/2023 FOLIC ACID folic acid 13.4 NG/mL (4.5-3 2.2) Not Available [facility] [address] [place], [address], 05/11/2023 18:53:54 05/11/19 24 05/11/2023 TSH WITH REFLE X TO FT4 TSH 1.72 uIU/m L (0.4-4 .2) Not Available [facility] [address] [place], [address], 05/11/2023 18:53:56 05/11/19 24 05/11/2023 25OH VITAM IN D 25OH vitamin D 35.6 NG/mL (20-50 ) Not Available [facility] [address] [place], [address], 05/11/2023 18:53:57 05/11/19 24 05/11/2023 ANTI THYRO ID PEROX IDASE AB anti thyroid peroxidase Ab 255.0 IU/mL (<34) high The resul ts are assay depen dent and canno t be inter garcia eable with other assay s. The antib jason assay is being perfo rmed using the elect jacquelyn milum inesc ence immun oassa y on the Jacquelyn Aston immun oassa y meliton zer. A corre latio n with clini wilman prese ntati on is recom michelle d while inter preti ng the resul ts. Not Available [facility] [address] [place], [address], 05/11/2023 19:01:08 05/11/19 24 05/12/2023 RETIC ULOCY TE COUNT retic % 0.9 % (0.9-2 .1) Not Available [facility] [address] [place], [address], 05/12/2023 02:47:07 05/11/19 24 05/12/2023 RETIC ULOCY TE COUNT reticulocyte count, corrected 0.9 % (0.9-2 .1) Not Available [facility] [address] [place], [address], 05/12/2023 02:47:07 05/11/1905/12/2023 RETIC ULOCY TE COUNT reticulocyte production index 0.9 % (1.0-2 .0) low Not Available [facility] [address] [place], [address], 05/12/2023 02:47:07 Result Notes None recorded. Medical Equipment None Reported. Allergies No known drug allergies Medications Name Sig Start Date Stop Date Status Note LastModified by Organization Details LastModified Time prednisone 10 mg tablet TAKE 4 TABLETS BY MOUTH X 2 DAYS THEN 3 TABLETS X 2 DAYS THEN 2 TABLETS X 2 DAYS THEN 1 TABLET X 2 DAYS active Not Available Not Available No t Available valacyclovir 1 gram tablet TAKE 1 TABLET BY MOUTH EVERY 12 HOURS active Not Available Not Available No t Available prednisone 20 mg tablet TAKE 3 TABLETS BY MOUTH DAILY FOR 10 DAYS active Not Available Not Available No t Available valacyclovir 500 mg tablet TAKE 1 TABLET BY MOUTH EVERY DAY active Not Available Not Available No t Available levothyroxine 75 mcg tablet TAKE 1 TABLET BY MOUTH EVERY DAY active Not Available Not Available No t Available sertraline 25 mg tablet TAKE 1 TABLET BY MOUTH DAILY IN THE MORNING active Not Available Not Available No t Available lorazepam 1 mg tablet TAKE 1 TABLET BY MOUTH UP TO DAILY NEEDED FOR SEVERE ANXIETY active Not Available Not Available No t Available Ciprodex 0.3 %-0.1 % ear drops,suspensi on INSTILL 4 DROPS INTO AFFECTED EAR(S) BY OTIC ROUTE 2 TIMES PER DAY FOR 7 DAYS 2023 active Not Available Not Available Not Avai lable fluvoxamine ER 100 mg capsule,extend ed release 24 hr TAKE 1 CAPSULE BY MOUTH EVERY DAY IN THE EVENING active Not Available Not Available No t Available naltrexone 4.5 mg capsule Take 1 capsule every day by oral route. 2023 active Not Available Not Available Not Avai lable Naltrex 1.5 mg capsule Take 1 capsule every day by oral route. 2023 active Not Available Not Available Not Avai lable Vitals Date Recorded Heart rate Oxygen saturation Oxygen saturation in Arterial blood by Pulse oximetry Systolic blood pressure Diastolic blood pressure Provider Name and Address Organization Details Last Updated DateTime 4 65 /min 98 % 98 % 120 mm[Hg] 70 mm[Hg] Chase Joe DO [address], [place], [address], [place] [facility] 4 16:23:25 Date Recorded Body height Heart rate Heart rate Oxygen saturation Oxygen saturation in Arterial blood by Pulse oximetry Body mass index (BMI) Body weight Systolic blood pressure Diastolic blood pressure Provider Name and Address Organization Details Last Updated DateTime 4 152.4 cm 61 /min 61 /min 98 % 98 % 38.1 kg/m2 56105.5 1 g 110 mm[Hg] 60 mm[Hg] Chase Joe DO [address], [place], [address], [place] [facility] 4 09:53:11 Social History None recorded. Functional Status None recorded. Mental Status None recorded. Family History Relationship Description Onset Age of this Age Resolved Age Notes LastModified by Organization Details LastModified Time Mother Alcohol abuse [email or web address] Not available 05/11 09:54:37 Mother Coronary arterioscler osis 60 [email or web address] Not available 05/11 09:55:01 Medical History No medical history recorded. Past Encounters Encounter ID Performer Location Encounter Start Date Encounter Closed Date Diagnosis/Indication Diagnosis SNOMED-CT Code Diagnosis ICD10 Code [id number] Chase Joe DO MAIN OFFICE [address] [facility] [address] [place] [id number] 05/11/2023 09:01:54 07/26/2023 10:28:02 Cristian thyroiditis 13324407 E06.3 Bilateral tinnitus 02511 58938 102 H93.13 Depressive disorder 3548 9007 F32.A Family his tory of coronary arteriosclerosis 206116513 Z82.49 [id number] Chase Joe DO MAIN OFFICE [address] [place] [id number] 06/08/2023 13:26:56 07/27/2023 13:51:55 Bilateral tinnitus 7080523597 102 H93.13 Obsessive- compulsive disorder 169173969 F42.9 [id number] Chase Joe DO MAIN OFFICE [address] [facility] [address] [place] [id number] 09/15/2023 11:38:08 09/16/2023 08:42:11 COVID-19 602531052 U07.1 Chronic fa tigue syndrome 91443433 R53.82 Dysplastic nevus of skin 757735983 D22.9 Bilateral tinnitus 59948 [address] 102 H93.13 Obsessive- compulsive disorder 674457887 F42.9 [id number] Chase Joe DO MAIN OFFICE [address] [facility] [address] [place] [id number] 12/06/2023 12:11:30 12/10/2023 09:00:41 Acute otitis externa 64898991 H60.509 Herpes simplex 19652167 B00.9 Cristian thyroiditis 21 584017 E06.3 Obsessive- compulsive disorder 475310178 F42.9 Bipolar disorder 5348026 4 F31.9 [id number] Chase Joe DO MAIN OFFICE [address] [facility] [address] [place] [id number] 01/25/2024 12:24:03 02/13/2024 12:03:19 Hearing loss 32690943 H91.90 Anxiety 18192516 F41.9 Blurring o f visual image 420341595 H53.8 Health Concerns Section Related Observation LastModified by Organization Detai ls LastModified Time None Recorded Concern Status LastModified by Organization Details LastModified Time None Recorded Advance Directives Directive None Recorded Payers Encounter Date Sequence Insurance Name Policy Number Policy Cota Covered Member ID Cota Member ID Guarantor Name 05/11/2023 1 [place] [facility] [id number] Bill Lm [id number] Bill Lm 06/08/2023 1 [place] [facility] [id number] Bill Lm [id number] Bill Lm 09/15/2023 1 [place] [facility] [id number] Bill Lm [id number] Bill Lm 12/06/2023 1 [place] [facility] [id number] Bill Amato [id number] Bill Amato 01/25/2024 1 [place] [facility] [id number] Bill Amato [id number] Bill Amato Notes Date Note Type Note Provider Name and Address Organization Details Recorded Time 4 text/html Dx with hypothyroid 10 years agoSaw mona and his TPO was checked many years ago.lPT to get records.Levo 150 mcg once a week75 mcg for 6 days.He is gluten free diet, Low sugar diet.Walks 3 miles a dayTakes MVIAdvised B-complex EODTinnitus for 10 years.Worse when runsSince got COVID it is worse in 2021 and noticed some decrease in hearing.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 and was told has fluid in ears and chronic sinusitis.Was placed on steroids and but provided some improvement but still hasSome hearing loss noted by seeing eye dog trainer after the COVID.Got COVID again in 2022 and now the tinnitus is bad again and now his hearing is worse too.Saw ENT ([facility]) in 04/15They did a hearing test which had only minor drop in hearing.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 but no nerve damage or tumor.Has f/u with ENT in Apr 2022.Will try prednisone taper, Take with food.Obtain labs and RTO.Has had h/o OCDSees psychiatristOn Zoloft 100mgHe feels depressed since his hearing loss.No SI or HIHe is f/u with psychiatristVegetarian but eats fishlabs as aboveRTO after labsTherapy, exercise, meditation, 15 min sun exposure per day, in sugar intake and simple carbs can be helpful.Mother in her 60s CADAfter running feeling worsening of ringing in his earNo DELONG, CP when he goes for runs Chase Joe, DO [address] [facility] [address], [place], [phone], [place] [facility] 05/20/2023 19:08:06 4 text/html has some improvement with steroid Tinnitus returned after he stopped steroidsPt to consider contacting long COVID clinic.Will start NaltrexoneRTO in 4-6 weeksPt spoke to his psychiatrist about switching from Zoloft to Duloxetine.The psychiatrist did not think its a good idea to change zoloft to Duloxetine. Chase Joe DO [address] [facility] [address], [place], [address], [place] - [facility] 07/15/2023 20:34:05 4 text/html Pt feels he has brain fog, fatigue, and body ache since TuesOther people are sick at home too (son and are sick as well)Tested for COVID x2 but was negative.No CP or cough or SOBGet DELONG when he walks.No n/v/dRest symptomatic management.Pt has a telehealth due to COVIDReports an irregular lesion on his L arm for the past few months.He will try to send a picture of his skin lesion.If the lesion is seen on picture then referral to Derm will be placed. Otherwise pt needs to come in for an evalPt was able to send a picIts most likely actinic KeratosisWill send to DERM for further eval Chase Joe DO [address] [facility] [address], [place], [address], [place] - [facility] 09/15/2023 12:48:06 4 text/html Pt is f/u by psychNP and has been on zoloft for ? OCDHowever, bipolar d/o is suspected.Will refer the pt to physician psych for another eval as pt seems to have periods of prerna and depressionPt seems to be manic stateHas flight of ideas andHe has severe anxiety and paranoia regarding his hearing and ringing in the ear ( Has seen ENT which he says was not helpful. (pt must bring records)Denies sleep issuesHas reports h/o risky behaviors in the past such as over spendingBother has OCDFather, mother and pt himself were alcoholics.Pt has not been drinking much in the past few year. Rare beer every other week.Denies using pot since tinnitus gets worse with pot.Has had history hospitalization in 2021 for psychosis (after he was given steroids for tinnitus)Currently reports depression. But speaks rapidly.Has had issues with anger and labile mood.Reports cycling b/w depression and hypomania.Pt has cut down on zoloft (50mg ) and now is very depressed.Call psychiatrist inform the psych of his current depression. He might need his med to be increase and a mood stabilizer to be added.No SI or HI at this time.Will send referral to psych.RTO after psych evel. Pt must bring his medical records. L Ear itching and fullness x 1 weekExam showed mild redness of L ear canalwill tx for otitis externaHe did not want steroid + abx dropHe asked for ciprodexPt use the drop for 7-10 days and then stopRTO if not improved in one weekIf any signs of allergy he can use zyrtec of flonase as needed. Chase Joe DO [address] [facility] [address], [place], [address], [place] - [facility] 12/06/2023 16:24:18 4 text/html B/l hearing lossFeels loud noises hurt his L earHas been seen by ENT here and [facility] think his issue is anxiety relatedHe went to urgent care and gotIt feels makes him more anxious and depressedHe speaks in low voiceFeels Zoloft makes his hearing worse and stoppedPt is asked to see his psychiatrist and adjust his medsPt refuses to tx his anxietyThe ENT and I agree that issues is psychosomtaicPt is very anxious can't sit stillHas psychHas not taken his ZoloftAs per he went to urgent care and was given steroidsAs per , has taken Zyprexa but it did not respondPt has had one hospitalizationIs able to sleep at night 4-5 hoursNo ETOH o smoking or potpt is very agitatedWants imaging of arteries of his brainWill contact psych at [phone]. Chase Joe DO [address] [facility] [address], [place], [address], [place] - [facility] 01/25/2024 13:14:57
--- OUTSIDE RECORDS SUMMARY | 2024-04-03 21:51 | XMS_ITS | Continuity of Care Document ---
Author Organization [facility], MAIN OFFICE Address [address] [place] [address] [place] [address] Assessment Encounter Date Assessment Date Assessment LastModified by Organization Details LastModified Time 01/25/2024 01/25/2024 Spent 45 minutes for evaluation and management, including face to face interaction, review of labs and notes from specialist, discussion and coordination of care. [email or web address] Not available 01/25/2024 12:43:15 Plan of Treatment Reminders Order Date Submit Date Provider Last Modified By Organization Details Last Modified Time Details Appointments None record ed. Lab None record ed. Referral None record ed. Procedures None record ed. Surgeries None record ed. Imaging None record ed. Medication Orders None record ed. Patient TargetsNo targets recorded. Patient InstructionsNo instructions recorded. Reason for Referral None Reported. Medical Equipment None Reported. Allergies No known [...] Available Not Available Not Avai lable Vitals None Recorded Social History None recorded. Functional Status None [...] Diagnosis/Indication Diagnosis SNOMED-CT Code Diagnosis ICD10 Code [id number] Chase Joe DO MAIN OFFICE [address] [facility] [address] [place] [address] 01/25/2024 12:24:03 02/13/2024 12:03:19 Hearing loss 48073861 H91.90 Anxiety 52788820 F41.9 Blurring o f visual image 480399488 H53.8 Health Concerns Section Related Observation LastModified by Organization Detai ls LastModified Time None Recorded Concern Status LastModified by Organization Details LastModified Time None Recorded Payers Encounter Date Sequence Insurance Name Policy Number Policy Cota Covered Member ID Cota Member ID Guarantor Name 01/25/2024 1 [place] [facility] ([id number]) [id number] Bill Amato [id number] Bill Amato Notes Date Note Type Note Provider Name and Address Organization Details Recorded Time 01/25/2024 text/html B/l hearing loss Feels loud noises hurt his L earHas [facility] his issue is anxiety relatedHe went [...] arteries of his brainWill contact psych at [phone]. Chase Joe, DO [address] [facility] [address], [place], [address], [place] - [facility] 01/25/2024 13:14:57
--- OUTSIDE RECORDS SUMMARY | 2024-04-03 21:51 | XMS_ITS | Continuity of Care Document ---
Author Organization [place] - [facility], [facility] Address [address] [place] [phone] Care Team Providers Care Commercial Assistant Name Role Phone LACEY ROBBINS Primary Care Provider [phone] LACEY ROBBINS Referring Provider Assessment Encounter Date Assessment Date Assessment LastModified by Organization Details LastModified Time 01/12/2024 01/12/2024 Patient reports fluctuating hearing that progresses throughout the day as it decreases with a twitching sound until the evening when he feels he cannot hear anything. Recently he was given a trial of oral steroids which caused his symptoms to worsen. He is afraid that if he does not take the steroids he may have worse hearing but he is also afraid that if he takes the steroids he may have damage and worse hearing. I reviewed his audiometric testing with a slight decrease compared with previous but generally within normal limits. Unfortunately he feels this represents a significant decrease in his hearing. My impression is that he is very anxious and needs to address his underlying anxiety which prevents him from achieving better scores on his hearing testing. I reviewed that hearing testing is participatory and he is not in a good state of mind at this moment. 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 Shelton. After 30 minutes of discussion it was apparent that he would not except my explanation. I do not have any specific medication or intervention for him other than to strongly recommend he work to obtain better control over his anxiety [email or web address] Not available 01/12/2024 15:04:58 Plan of Treatment Reminders Order Date Submit Date Provider Last Modified By Organization Details Last Modified Time Details Appointments FOLLOW UP 15 2025 09:30A M Hearing Test Not available Not available Not available FOLLOW UP 2024 10:00A M ADOLFO MAJANO MD Not available Not available Not available Lab None recorded . Referral None recorded . Procedures None recorded . Surgeries None recorded . Imaging None recorded . Medication Orders None recorded . Patient TargetsNo targets recorded. Patient InstructionsNo instructions recorded. Reason for Referral None Reported. Results Created Date Observation Date Name Description Value Unit Range Abnormal Flag Note LastModifiedBy Organization Detail LastModifiedTime 12/12/19 24 05/06/2019 imagi ng/di agnos tic resul t No observ ation record ed. [email or web address] Not Available 23:05:09 12/12/19 24 05/08/2019 audio gram No observ ation record ed. [email or web address] Not Available 23:05:36 12/12/19 24 05/17/2022 imagi ng/di agnos tic resul t No observ ation record ed. [email or web address] Not Available 23:05:37 12/12/19 24 10/20/2022 imagi ng/di agnos tic resul t No observ ation record ed. [email or web address] Not Available 23:05:39 12/12/19 24 11/04/2021 imagi ng/di agnos tic resul t No observ ation record ed. [email or web address] Not Available 23:05:41 12/12/19 24 01/05/2022 imagi ng/di agnos tic resul t No observ ation record ed. [email or web address] Not Available 23:06:00 12/12/19 24 01/13/2022 imagi ng/di agnos tic resul t No observ ation record ed. [email or web address] Not Available 23:06:04 12/12/19 24 01/13/2022 imagi ng/di agnos tic resul t No observ ation record ed. [email or web address] Not Available 23:06:12 12/12/19 24 04/06/2023 imagi ng/di agnos tic resul t No observ ation record ed. [email or web address] Not Available 23:06:16 12/12/19 24 01/05/2022 audio gram No observ ation record ed. [email or web address] Not Available 23:06:23 12/12/19 24 05/08/2019 audio gram No observ ation record ed. [email or web address] Not Available 23:06:35 12/12/19 24 11/04/2021 audio gram No observ ation record ed. [email or web address] Not Available 23:06:49 12/12/19 24 01/13/2022 audio gram No observ ation record ed. [email or web address] Not Available 23:07:05 12/19/19 24 12/19/2023 audio gram No observ ation record ed. [email or web address] Not Available 14:03:28 12/19/19 24 audio gram No observ ation record ed. [email or web address] Not Available 15:33:53 01/15/20 24 audio gram No observ ation record ed. [email or web address] Not Available 2023 16:34:22 Result Notes None recorded. Problems Name Problem SNOMED Code Status Onset Date Resolution Date Notes Provider Name and Address Organization Details Recorded Time Bilateral tinnitus 24197084834 02 Active 2019 Tinnitus, bilateral ; Note: Date Diagnosed : 05/08/2019 11:21 AM (H93.13) Not Available [facility] 4 02:56:04 Impacted cerumen in left ear 68827777999 35759 Active 2022 Impacted cerumen, left ear; Note: Date Diagnosed : 01/30/2023 12:29 PM (H61.22) Not Available [facility] 4 02:56:06 Seasonal allergic rhinitis 760300522 Active 2022 Other seasonal allergic rhinitis; Note: Date Diagnosed : 01/30/2023 12:29 PM (J30.2) Not Available [facility] 4 02:56:03 Sensorine ural hearing loss 20790369 Active 2019 Sensorine ural hearing loss, unilatera l, left ear, with unrestric travis hearing on the contralat eral side; Note: Date Diagnosed : 05/08/2019 10:46 AM (H90.42) Not Available [facility] 4 02:56:06 Sensorine ural hearing loss of bilateral ears 716798196 Active 2019 Sensorine ural hearing loss, bilateral ; Note: Date Diagnosed : 05/08/2019 11:21 AM (H90.3) Not Available [facility] 4 02:56:06 Candidal otitis externa 90164153 Active 2022 Candidal otitis externa; Location: left Note : Date Diagnosed : 3 11:29 AM (B37.84) Not Available [facility] 4 02:56:07 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 Procedures Surgical History Date Name Laterality Status Provider Name and Address Organization Details Recorded Time 4 Air only Audio (38755) completed ISIDRO ZHENG [address] [address], [phone], [facility] - [facility] 01/12/2024 14:16:01 4 SRT & Speech Recognition (86304) completed ISIDRO ZHENG [address] [facility],[address], [address], [place] - [facility] 01/12/2024 14:16:08 4 Air only Audio (31711) completed Ekta Mooney [place] - [facility] 12/19/2023 14:13:42 4 SRT/SAT (67466) completed Ekta Mooney [place] - [facility] 12/19/2023 14:13:46 4 Air & Speech Audio with Tymps (85035, 65885 & 46207) completed GEN MANCILLA, AUD [address] [facility], [place], [address], [place] - [facility] 11/15/2023 14:15:04 Imaging Results None recorded. Procedure Notes None recorded. Medical Equipment None Reported. Allergies No known drug allergies Medications Name Sig Start Date Stop Date Status Note LastModified by Organization Details LastModified Time prednison e 10 mg tablet TAKE 4 TABLETS BY MOUTH X 2 DAYS THEN 3 TABLETS X 2 DAYS THEN 2 TABLETS X 2 DAYS THEN 1 TABLET X 2 DAYS 11/14 completed Not Available Not Available Not Available valacyclo vir 1 gram tablet TAKE 1 TABLET BY MOUTH EVERY 12 HOURS 01/11 completed Not Available Not Available Not Available prednison e 20 mg tablet TAKE 3 TABLETS BY MOUTH DAILY FOR 10 DAYS active Not Available Not Available No t Available sertralin e 100 mg tablet TAKE 1 AND 1/2 TABLETS BY MOUTH EVERY DAY IN THE MORNING 01/11 completed Not Available Not Available Not Available valacyclo vir 500 mg tablet TAKE 1 TABLET BY MOUTH EVERY DAY active Not Available Not Available No t Available amoxicill in 500 mg tablet TAKE 1 TABLET BY MOUTH THREE TIMES DAILY FOR 7 DAYS 11/14 completed Not Available Not Available Not Available levothyro xine 25 mcg tablet 01/11 completed Medicati on ID: [id number] D uration Value: 30 Brand Name: levothyr oxine Se nd Method: E-Prescr ibed Sub s Allowed: subs OK Speci al Instruct ion: TK 1 T PO QD Medic ationGen ericName : levothyr oxine Not Available Not Available Not Available levothyro xine 75 mcg tablet TAKE 1 TABLET BY MOUTH EVERY DAY active Not Available Not Available No t Available clotrimaz ole 1 % topical solution Apply 01/11 completed Medicati on ID: [id number] D uration Value: 14 Brand Name: clotrima zole Sen d Method: E-Prescr ibed Sub s Allowed: subs OK Speci al Instruct ion: 4 drops to left ear twice daily X 14 days Med icationG enericNa me: debo knox Not Available Not Available Not Available sertralin e 25 mg tablet TAKE 1 TABLET BY MOUTH DAILY IN THE MORNING active Not Available Not Available No t Available lorazepam 1 mg tablet TAKE 1 TABLET BY MOUTH UP TO DAILY NEEDED FOR SEVERE ANXIETY active Not Available Not Available No t Available amoxicill in 875 mg-potass ium clavulana te 125 mg tablet TAKE 1 TABLET BY MOUTH EVERY 12 HOURS FOR 10 DAYS 11/14 completed Not Available Not Available Not Available fluvoxami ne ER 100 mg capsule,e xtended release 24 hr TAKE 1 CAPSULE BY MOUTH EVERY DAY IN THE EVENING 01/11 completed Not Available Not Available Not Available Paxlovid 300 mg (150 mg x 2)-100 mg tablets in a dose pack TAKE 3 TABLETS BY MOUTH TWICE DAILY 01/11 completed Not Available Not Available Not Available Vitals None Recorded Social History None recorded. Functional Status None recorded. Mental Status None recorded. Family History Nothing Reported. Medical History Condition Response Thyroid Problems Y Past Encounters Encounter ID Performer Location Encounter Start Date Encounter Closed Date Diagnosis/Indication Diagnosis SNOMED-CT Code Diagnosis ICD10 Code [id number] SHANNAN HUSSEIN MD [facility] [address] [address] 12/19/2023 13:17:26 12/19/2023 14:53:00 Sensorineural hearing loss of bilateral ears 491060354 H90.3 [id number] TERESA SANTAMARIA MD [facility] [address] [address] 01/12/2024 13:31:39 01/12/2024 15:04:18 Sensorineural hearing loss of bilateral ears 509839948 H90.3 Anxiety 45105761 F41.9 Health Concerns Section Related Observation LastModified by Organization Detai ls LastModified Time None Recorded Concern Status LastModified by Organization Details LastModified Time None Recorded Payers Encounter Date Sequence Insurance Name Policy Number Policy Cota Covered Member ID Cota Member ID Guarantor Name 01/12/2024 1 [place]ER[place]: 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
--- OUTSIDE RECORDS SUMMARY | 2024-04-03 21:51 | XMS_ITS | Data Portability ---
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 He does take oral antiviral therapy but feels recently he noticed some decrease in both ears. Cerumen removal was performed but that did not change his sensation of hearing difficulty. Audiometric testing in the right ear shows no change the left ear is basically stable with may be some mild drop at 6000. But 6000 was not checked last visit. Given the slight asymmetry left compared to right I suggested we consider an MRI scan to look for an acoustic tumor. He declines as he is concerned about the noise effects of the MRI scan. He inquired about prophylactic therapy for HSV. We discussed that is not my area of expertise but it certainly seems reasonable given his frequency of outbreaks. He can discuss the dosing with his PCP. Offered additional opinion with Dr. Barron or another envelope addresser in the [place] area. Repeat audio in 6 months [email or web address] Not available 11/15/2023 14:49:13 12/19/2023 12/19/2023 53 year old male reporting decreased hearing in the setting of starting sertraline. Reassurance was provided to the patient that his ear exam is normal and his audiogram is stable compared to last month. Patient had uploaded an audiogram to the portal from [employer] performed 12/14/23 and was concerned that there was a small change in a low frequency tone of the left ear. This was not demonstrated today. We discussed that there is some variability from one lapel padder to the next and with or without inserts and that we are reassured by today's audiogram. We discussed that patient's symptoms, specifically the left sided pain worse after a long day of talking, could be related to TMJ. This is more commonly seen after chewing but could be contributing to his symptoms. We have encouraged a soft diet. We discussed that his symptoms may be nerve related. We have offered to order an MRI but patient declines to have the MRI secondary to the loud noise associated with the testing. We have offered him a referral to neurology but he would like to hold off on this today. We have offered to arrange referral to another envelope addresser in the [place] area. Patient would like to continue with observation at this time. I have encouraged him to follow up with his psychiatrist regarding his cessation of sertraline. He will follow up as previously scheduled for repeat audio in 5 months. Patient was also seen and evaluated by Dr. Mota. [email or web address] Not available 12/19/2023 17:08:31 01/12/2024 01/12/2024 Patient reports fluctuating hearing that [...] a second opinion, he does have an ham trimmer in [place], Dr. Shelton. After 30 minutes of discussion it was apparent that he would not except my explanation. I do not have any specific medication or intervention for him other than to strongly recommend he work to obtain better control over his anxiety [email or web address] Not available 01/12/2024 15:04:58 Plan of Treatment Reminders Order Date Submit Date Provider Last Modified By Organization Details Last Modified Time Details Appointments FOLLOW UP 2024 09:30A M Hearing Test Not available Not [...] Abnormal Flag Note LastModifiedBy Organization Detail LastModifiedTime 11/16/19 audio gram No observ ation record ed. [email or web address] Not Available 09:33:11 12/12/19 24 05/06/2019 imagi ng/di agnos tic [...] record ed. [email or web address] Not Available 14:03:28 12/19/19 audio gram No observ ation record ed. [email or web address] Not Available 15:33:53 01/15/20 24 audio gram No observ ation record ed. [email or web address] Not Available 2023 16:34:22 Result Notes None recorded. Problems Name Problem SNOMED Code Status Onset Date Resolution Date Notes Provider Name and Address Organization Details Recorded Time Bilateral tinnitus 66903625369 02 Active 2019 Tinnitus, bilateral ; Note: Date Diagnosed : 05/08/2019 11:21 AM (H93.13) Not Available [facility] 4 02:56:04 Impacted cerumen in left ear 79803972213 12291 Active 2022 Impacted cerumen, left ear; Note: Date Diagnosed : 01/30/2023 12:29 PM (H61.22) Not Available [facility] 4 02:56:06 Seasonal allergic rhinitis 325745651 Active 2022 Other seasonal allergic rhinitis; Note: Date Diagnosed : 01/30/2023 12:29 PM (J30.2) Not Available [facility] 4 02:56:03 Sensorine ural hearing loss 48694649 Active 2019 Sensorine ural hearing loss, unilatera l, left ear, with unrestric travis hearing on the contralat eral side; Note: Date Diagnosed : 05/08/2019 10:46 AM (H90.42) Not Available [facility] 4 02:56:06 Sensorine ural hearing loss of bilateral ears 607476647 Active 2019 Sensorine ural hearing loss, bilateral ; Note: Date Diagnosed : 05/08/2019 11:21 AM (H90.3) Not Available [facility] 4 02:56:06 Candidal otitis externa 22264849 Active 2022 Candidal otitis externa; Location: left Note : Date Diagnosed : 3 11:29 AM (B37.84) Not Available [facility] 4 02:56:07 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 Procedures Surgical History Date Name Laterality Status Provider Name and Address Organization Details Recorded Time 4 Air only Audio (13773) completed ISIDRO ZHENG [address] [place] [address],[address], [address], [facility] 01/12/2024 14:16:01 4 SRT & Speech Recognition (84924) completed ISIDRO ZHENG [address] [place] [address],[address], [place], [address], [place] - [facility] 01/12/2024 14:16:08 4 Air only Audio (28845) completed Ekta Mooney [place] - [facility] 12/19/2023 14:13:42 4 SRT/SAT (33072) completed Ekta Mooney [place] [facility] 12/19/2023 14:13:46 4 Air & Speech Audio with Tymps (91623, 22034 & 99008) completed GEN MANCILLA, AUD [address] [facility], [place], [address], [place] - [facility] 11/15/2023 14:15:04 Imaging Results Imaging Date Name Status LastModified by [facility] Details LastModified Time 11/16/2023 audiogram completed Information not available 11/16/2023 09:33:11 05/06/2019 imaging/diagno stic result completed Information not available 12/12/2023 23:05:09 05/08/2019 audiogram completed Information not available 12/12/2023 23:05:36 05/17/2022 imaging/diagno stic result completed Information not available 12/12/2023 23:05:37 10/20/2022 imaging/diagno stic result completed Information not available 12/12/2023 23:05:39 11/04/2021 imaging/diagno stic result completed Information not available 12/12/2023 23:05:41 01/05/2022 imaging/diagno stic result completed Information not available 12/12/2023 23:06:00 01/13/2022 imaging/diagno stic result completed Information not available 12/12/2023 23:06:04 01/13/2022 imaging/diagno stic result completed Information not available 12/12/2023 23:06:12 04/06/2023 imaging/diagno stic result completed Information not available 12/12/2023 23:06:16 01/05/2022 audiogram completed Information not available 12/12/2023 23:06:23 05/08/2019 audiogram completed Information not available 12/12/2023 23:06:35 11/04/2021 audiogram completed Information not available 12/12/2023 23:06:49 01/13/2022 audiogram completed Information not available 12/12/2023 23:07:05 12/19/2023 audiogram completed [email or web address] Information not available 12/19/2023 14:03:28 12/19/2023 audiogram completed Information not available 12/19/2023 15:33:53 01/15/2024 audiogram completed [email or web address] Information no t available 01/15/2024 16:34:22 Procedure Notes None recorded. Medical Equipment None [...] mcg tablet 01/11 completed Medicati on ID: [id number] D uration Value: 30 Brand Name: levothyr [...] solution Apply 01/11 completed Medicati on ID: [id number] D uration Value: 14 Brand Name: clotrishellie knox Sen d Method: E-Prescr ibed Sub s Allowed: subs OK Speci al Instruct ion: 4 drops to left ear twice daily X 14 days Med icationG enericNa me: clotrima zole Not Available Not Available Not Available sertralin [...] Not Available Not Available Not Available Vitals Date Recorded Body height Body mass index (BMI) Body weight Provider Name and Address Organization Details Last Updated DateTime 11/15/2023 172.72 cm 28.6 kg/m2 79823.37 g Martin Curtis [facility] 11/15/2023 13:26:27 Date Recorded Body height Body mass index (BMI) Body weight Provider Name and Address Organization Details Last Updated DateTime 12/19/2023 172.72 cm 28.6 kg/m2 03381.37 g Jay Yin [place] [facility] 12/19/2023 13:23:37 Social History None recorded. Functional Status None recorded. Mental Status None recorded. Family History Nothing Reported. Medical History Condition Response Thyroid Problems Y Past Encounters Encounter ID Performer Location Encounter Start Date Encounter Closed Date Diagnosis/Indication Diagnosis SNOMED-CT Code Diagnosis ICD10 Code [id number] ADOLFO DANGELO MD [facility] [address] [place] [address] 11/15/2023 13:12:14 11/15/2023 14:52:48 Bilateral tinnitus 7177752649 102 H93.13 [id number] SHANNAN MOTA MD [facility] [address] [place] [address] 12/19/2023 13:17:26 12/19/2023 14:53:00 Sensorineural hearing loss of bilateral ears 088635186 H90.3 [id number] TERESA SANTAMARIA MD [facility] [address] [place] [address] 01/12/2024 13:31:39 01/12/2024 15:04:18 Sensorineural hearing loss of bilateral ears 074132476 H90.3 Anxiety 78063106 F41.9 Health Concerns Section Related Observation LastModified by Organization Detai ls LastModified Time None Recorded Concern Status LastModified by Organization Details LastModified Time None Recorded Advance Directives Directive None Recorded Payers Encounter Date Sequence Insurance Name Policy Number Policy Cota Covered Member ID Cota Member ID Guarantor Name 11/15/2023 1 [place] [facility] [id number] Ledy B Ollari [id number] Ledy Ollari 12/19/2023 1 [place] [facility] [id number] Ledy B Ollari [id number] Ledy Ollari 01/12/2024 1 [place] [facility] [id number] Ledy B Ollari [id number] Ledy Ollari Notes Date Note Type Note Provider Name and Address Organization Details Recorded Time text/html Noted to have mild sensorineural hearing loss and previous bouts of fungal otitis externa. Patient presents with concern that COVID in 2021 caused reduction in hearing. He is also concerned that HSV-1 can reduce his hearing. Feels COVID in fall 2022 caused reduction in hearing Recent bout of HSV a few weeks ago. Huson during the episode he had reduction in hearing and is anxious about it ADOLFO BAUTISTA MD [address] [facility],[place] [address], [place], [address], [facility] 11/15/2023 14:49:35 4 text/html 53 year old male presents reporting decreased hearing. He had his hearing evaluated one month ago with Dr. Bautista. At that time his hearing was stable. Patient had discussed with Dr. Dyer his concerns at that time that outbreaks of HSV 1 seemed to decrease his hearing. He reports today that about three weeks ago he started sertraline. He took it for four days and again felt that his hearing was diminished in both ears and his tinnitus was worsened. He stopped the medication. He reports a pain in the left ear which is triggered by noise or from talking. 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 He does use a mouthguard nightly to prevent teeth grinding. SHANNAN MOTA MD [address] [facility],[address], [address], [facility] 12/19/2023 17:33:08 4 text/html hyperaccusisescorted by spouse Mark to stop working teachingpain in left ear with burningwent to eye movement disorder therapy in [place] - had a loud noise exposure with a gong that caused him distress.seen in urgent care and given a single dose of steroids but caused him more distressfeels a twitch and then decrease hearing sequentially through the day PV 12/19/23 Nakul: advised to work with psychiatrist to stop sertraline11/15/23 Blaise: TERESA SANTAMARIA MD [address] [facility],[address], [place], [address], [facility] 01/12/2024 15:05:12
[2024-04-04 15:22] LABS: Anti Nuclear Antibody Screen NEGATIVE (NEGATIVE)
[2024-04-04 16:53] LABS: Homocysteine 10.5 umol/L (<11.4)
[2024-04-06 14:05] LABS: Vitamin B1 24 nmol/L (8-30)
[2024-04-06 17:33] LABS: Methylmalonic Acid 145 nmol/L (55-335)
== END 2024-04-02 13:52 | disposition home or self-care (01) ==
LOC: HO.LAB 13:51
PROVIDERS: PCP Psychiatry & Neurology Psychiatry; Visit Provider Psychiatry & Neurology Psychiatry
DX: F42.9 Obsessive-compulsive disorder, unspecified (principal); H93.13 Tinnitus, bilateral
CPT/HCPCS: 36415; 80053; 82306; 82728; 83090; 83540; 83735; 83921; 83970; 84100; 84425; 85652; 86038; 86140; 86431; 86780

== ENCOUNTER 2025-04-04 07:40 | Outpatient (AMB) | payer BC, SELFPAY ==
--- NOTE | 2025-04-04 07:40 | A.OFFVIS_ITS ---
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 Accompanied by: Spouse Allergies grass pollen Allergy (Unknown, Verified 03/03/24 16:37) Unknown david Allergy (Unknown, Verified 02/08/24 15:41) Unknown Peanut Butter Allergy (Unknown, Verified 03/18/24 11:54) Itching Seasonal Allergies Allergy (Unknown, Verified 02/08/24 15:41) Unknown gluten Allergy (Verified 03/18/24 11:54) Hives almonds Allergy (Unknown, Uncoded 08/03/22 13:43) Unknown pineapples Allergy (Unknown, Uncoded 08/03/22 13:43) Unknown HPI Comments Details: Bill is a 54-year-old male patient with a past medical history of anxiety, OCD, and depression being treated on Zoloft who has been seen by Dr. Pereira in the past for sudden onset of bilateral tinnitus and severe hyperacusis. There was no obvious cause for his symptoms and it was recommended at that time he see ENT and have an MRI completed. Today he tells me that he has seen ENT who can not find any cause for his tinnitus and has suggested possibility of migraine or postconcussive symptoms. He has not had any MRI imaging out of fear that this will further damage his hearing. He tells me that he has had worsening of symptoms including headache to the crown of his head described as a dull ache that is daily typically starting approximately 10 minutes after awakening in the morning. He also has a accompanying brain fog, lightheadedness with position changes, hyperacusis, and high-pitched tinnitus. He also on occasion will have a pounding tinnitus to his ears but worse on the left. He does have some mild light sensitivity as well. His headaches are better while he is lying down in generally worsen when he is in an upright position. He does note some clear leakage from his left nostril on occasion that does not seem to be associated with any congestion. His 1st concussion occurred in February of 2024 after which he did not feel well for several weeks including the symptoms described above. Symptoms had resolved on their own and a few months later he had has had again and developed a recurrence of his symptoms. A couple of months from there he indoors a 3rd head injury after which he has had worsening of his symptoms and from October to December had difficulty even getting out of bed. [facility] Medical History (Updated 04/04/25 @ 08:30 by Madeline Green CNP) Borderline high cholesterol Hyperacusis Cristian's thyroiditis Depression Urethral stricture History of concussion Clicking tinnitus of both ears Surgical History (Updated 02/07/24 @ 11:27 by Natalie Ventura RN) Hx of knee surgery Hx of inguinal hernia surgery Social History (Updated 08/03/22 @ 13:47 by Nohelia Mendez CMA) Household Members: Spouse and Children Housing: House Do you presently have visiting nurse or other home services: No Alcohol intake: current Alcohol intake frequency: a few times a month Patient Tobacco Use Status: Never used Tobacco service: No Sexual orientation: Straight/Heterosexual Review of Systems Const All systems reviewed & are unremarkable except as noted in HPI and below Physical Exam Vital Signs: Last Vital Signs Pulse 66 04/04/25 07:46 Resp 16 04/04/25 07:46 BP 124/80 04/04/25 07:46 Pulse Ox 98 04/04/25 07:46 Oxygen Delivery Method Room Air 04/04/25 07:46 BMI result Body Mass Index 29.6 Const General: cooperative, healthy appearing, comfortable and no acute distress Nutritional Appearance: well nourished Orientation/consciousness: patient oriented x3 Limitations: no limitations HEENT Head: Yes normal to inspection and Yes normocephalic Eyes General: appearance normal, both eyes and all related structures Visual Gage: normal visual gage by confrontation Alignment and Position: alignment normal Periorbital: periorbital findings normal Eyelids: Yes eyelids normal Conjunctivae: conjunctivae normal Sclerae: sclerae normal Direct Ophthalmoscopy: normal light reflex, no papilledema and fundi normal bilaterally Neck Neck: Yes normal visual inspection and Yes full ROM General: Yes no CVA tenderness Back/Spine/Pelvis Back: no CVA tenderness Cervical Spine: normal cervical lordosis Thoracic/Lumbar Spine: thoracic and lumbar spine normal to inspection Neuro General: patient oriented x3 Cranial nerves: Yes CN's II-XII intact bilaterally and Yes Facial sensation intact/muscles of mastication intact Cognition (Neuro): normal cognition Gait exam (Neuro): Normal gait present Motor exam (neuro): 5/5 motor strength present throughout and no tremor noted Sensory Exam: double simultaneous stimulation for sensation normal Romberg Test: Negative Pupils: Normal pupillary reactivity/response: bilateral Psych Appearance: grossly normal Mental Status: mental status grossly normal Speech and movement: Normal speech and movement present and Clear speech present Affect: normal affect Attitude: cooperative Thought process: Normal thought process present Thought content: Normal thought content present Insight: Good insight present (Psych) Judgement: Good judgement present (Psych) Assessment & Plan Assessment & Plan (1) Postconcussion syndrome: Code(s): F07.81 - Postconcussional syndrome Category: Medical (2) Tinnitus: Code(s): H93.19 - Tinnitus, unspecified ear Category: Medical Qualifiers: Laterality: bilateral Qualified Code(s): H93.13 - Tinnitus, bilateral (3) Positional headache: Code(s): R51.0 - Headache with orthostatic component, not elsewhere classified Category: Medical Plan Bill is a 54-year-old male patient with a past medical history of anxiety, OCD, and depression being treated on Zoloft who has been seen by Dr. Pereira in the past for sudden onset of bilateral tinnitus and severe hyperacusis. There was no obvious cause for his symptoms and it was recommended at that time he see ENT and have an MRI completed. He has since had couple more concussions and headaches, tinnitus, pulsatile tinnitus, positional lightheadedness, and brain fog have escalated. These symptoms occur daily and are worse when he is in the standing position. I am concerned about the possibility of low-pressure headache as he also describes some clear leakage from his left nostril occasionally happening generally every day at some point. If MRI is normal, I suggest that we treat as migraine is the if his symptoms improve. -MRI of the brain with and without contrast to rule out low-pressure headache. Patient is requesting open MRI and therefore I will send the order to [facility]. -follow up after MRI Orders: Orders MR head/brain wo/w con Today F07.81 - Postconcussional syndrome, H93.13 - Tinnitus, bilateral, R51.0 - Headache with orthostatic component, not elsewhere classified Medications: Discontinued aripiprazole (Abilify) Discontinued Reason: Patient no longer taking 1 mg (1/2 x 2 mg) PO BEDTIME 30 days 15 tabs 0RF Coding Level of Care Code New Pt Level 4 (49983) Diagnoses Postconcussion syndrome F07.81 Tinnitus of both ears H93.13 Laterality: bilateral Positional headache R51.0
[2025-04-04 07:46] VITALS: BP 124/80; PULSE 66; RESP 16; O2SAT 98; BMI 29.6
== END 2025-04-04 08:49 | disposition home or self-care (01) ==
PROVIDERS: PCP Internal Medicine; Visit Provider Nurse Practitioner
DX: R51.0 Headache with orthostatic component, not elsewhere classified (principal); F07.81 Postconcussional syndrome; H93.13 Tinnitus, bilateral
CPT/HCPCS: 99204